=== PATIENT | female | born 1965 | race Caucasian/White ===

== ENCOUNTER → 2018-01-16 | Outpatient (REF) | payer OTHER ==
[2018-01-16 16:50] LABS: BASO # 0.1 10^3/uL (0.0-0.2); BASO % 1.1 % (0.0-1.0); EOS # 0.6 10^3/uL (0.0-0.50); EOS % 6.3 % (0.0-3.0); HEMATOCRIT 38.9 % (36.0-47.0); HEMOGLOBIN 13.1 g/dl (12.0-15.5); IMMATURE GRANULOCYTE % 0.2 % (0-3.0); LYMPH # 3.2 10^3/uL (1.5-4.5); LYMPH % 32.2 % (24.0-44.0); MEAN CORPUSCULAR HEMOGLOBIN 30.4 pg (27.0-33.0); MEAN CORPUSCULAR HGB CONC 33.7 g/dl (32.0-36.5); MEAN CORPUSCULAR VOLUME 90.3 fl (80.0-96.0); MONO # 0.6 10^3/uL (0.0-0.8); MONO % 6.1 % (0.0-5.0); NEUTROPHILS # 5.5 10^3/uL (1.8-7.7); NEUTROPHILS % 54.1 % (36.0-66.0); PLATELET COUNT, AUTOMATED 335 10^3/uL (150-450); RED BLOOD COUNT 4.31 10^6/uL (4.00-5.40); RED CELL DISTRIBUTION WIDTH 12.7 % (11.5-14.5); WHITE BLOOD COUNT 10.1 10^3/uL (4.0-10.0)
[2018-01-16 17:09] LABS: ALBUMIN 3.6 GM/DL (3.2-5.2); ALBUMIN/GLOBULIN RATIO 0.97 (1.00-1.93); ALKALINE PHOSPHATASE 102 U/L (45-117); ALT/SGPT 21 U/L (12-78); ANION GAP 7 MEQ/L (8-16); AST/SGOT 10 U/L (7-37); BILIRUBIN,TOTAL 0.3 MG/DL (0.2-1.0); BLOOD UREA NITROGEN 14 MG/DL (7-18); C REACTIVE PROTEIN QUANTITATIV 0.75 MG/DL (0.00-0.30); CALCIUM LEVEL 8.9 MG/DL (8.5-10.1); CARBON DIOXIDE LEVEL 27 MEQ/L (21-32); CHLORIDE LEVEL 106 MEQ/L (98-107); CHOLESTEROL LEVEL 204 MG/DL (<200); CHOLESTEROL RISK RATIO 5.513 (<5); GLOMERULAR FILTRATION RATE > 60.0 (>51); GLUCOSE, FASTING 92 MG/DL (70-100); HDL CHOLESTEROL 37 MG/DL (>40); LDL CHOLESTEROL 133.2 MG/DL (<100); NON-HDL-C 167 MG/DL; POTASSIUM SERUM 4.9 MEQ/L (3.5-5.1); SODIUM LEVEL 140 MEQ/L (136-145); TOTAL PROTEIN 7.3 GM/DL (6.4-8.2); TRIGLYCERIDES LEVEL 169 MG/DL (<150)
[2018-01-16 17:11] LABS: ERYTHROCYTE SEDIMENTATION RATE 26 mm/hr (0-30)
[2018-01-19 00:37] LABS: ANTINUCLEAR ANTIBODIES DIRECT Negative (Negative); Lyme Disease IgG/IgM Antibodie <0.91 ISR (0.00-0.90); Lyme Disease IgM Ab Quantitati <0.80 index (0.00-0.79)
[2018-01-19 00:37] LABS: CYCLIC CITRULLINATED PEPTIDE > 250 units (0-19)
== END ==
LOC: M SFHCCAPE 07:15
DX: M05.79 Rheumatoid arthritis with rheumatoid factor of multiple sites without organ or systems involvement (principal); I10 Essential (primary) hypertension
CPT/HCPCS: 84443

== ENCOUNTER → 2018-01-30 | Outpatient (REF) | payer OTHER ==
[2018-02-01 14:14] LABS: HPV HYBRID CAPTURE II Negative (Negative)
== END ==
LOC: M SFHCCAPE 08:16
DX: Z12.4 Encounter for screening for malignant neoplasm of cervix (principal)
CPT/HCPCS: 88142

== ENCOUNTER → 2018-04-30 | Outpatient (REF) | payer OTHER | LOC: M SFHCCAPE 08:33 | DX: E78.2 Mixed hyperlipidemia (principal) ==

== ENCOUNTER → 2018-05-21 | Outpatient (REF) | payer OTHER ==
[2018-05-21 17:08] LABS: APPEARANCE, URINE CLEAR (CLEAR); BACTERIA, URINE AUTO NEGATIVE (NEGATIVE); BILIRUBIN, URINE AUTO NEGATIVE (NEGATIVE); BLOOD, URINE BLOOD NEGATIVE (NEGATIVE); COLOR, URINE YELLOW (YELLOW); GLUCOSE, URINE (UA) AUTO NEGATIVE (NEGATIVE); KETONE, URINE AUTO NEGATIVE (NEGATIVE); LEUKOCYTE ESTERASE, URINE AUTO NEGATIVE (NEGATIVE); NITRITE, URINE AUTO NEGATIVE (NEGATIVE); PROTEIN, URINE AUTO NEGATIVE (NEGATIVE); RBC, URINE AUTO 4 /HPF (0-3); SPECIFIC GRAVITY URINE AUTO 1.014 (1.002-1.035); SQUAMOUS EPITHELIAL CELL UR AU 1 /HPF (0-6); WBC, URINE AUTO 0 /HPF (0-3)
[2018-05-21 17:17] LABS: ALBUMIN 3.3 GM/DL (3.2-5.2); ALBUMIN/GLOBULIN RATIO 1.06 (1.00-1.93); ALKALINE PHOSPHATASE 89 U/L (45-117); ALT/SGPT 30 U/L (12-78); ANION GAP 6 MEQ/L (8-16); AST/SGOT 14 U/L (7-37); BILIRUBIN,TOTAL 0.4 MG/DL (0.2-1.0); BLOOD UREA NITROGEN 14 MG/DL (7-18); CALCIUM LEVEL 8.5 MG/DL (8.5-10.1); CARBON DIOXIDE LEVEL 28 MEQ/L (21-32); CHLORIDE LEVEL 106 MEQ/L (98-107); CHOLESTEROL LEVEL 152 MG/DL (<200); CHOLESTEROL RISK RATIO 3.707 (<5); CREATININE FOR GFR 0.94 MG/DL (0.55-1.30); GLOMERULAR FILTRATION RATE > 60.0 (>51); GLUCOSE, FASTING 82 MG/DL (70-100); HDL CHOLESTEROL 41 MG/DL (>40); LDL CHOLESTEROL 89 MG/DL (<100); NON-HDL-C 111 MG/DL; POTASSIUM SERUM 4.7 MEQ/L (3.5-5.1); SODIUM LEVEL 140 MEQ/L (136-145); TOTAL PROTEIN 6.4 GM/DL (6.4-8.2); TRIGLYCERIDES LEVEL 110 MG/DL (<150)
== END ==
LOC: M SFHCCAPE 07:47
DX: E78.2 Mixed hyperlipidemia (principal); R35.0 Frequency of micturition
CPT/HCPCS: 80053

== ENCOUNTER → 2018-08-16 | Outpatient (REF) | payer OTHER ==
[2018-08-16 17:08] LABS: APPEARANCE, URINE CLEAR (CLEAR); BACTERIA, URINE AUTO 1+ (NEGATIVE); BILIRUBIN, URINE AUTO NEGATIVE (NEGATIVE); BLOOD, URINE BLOOD NEGATIVE (NEGATIVE); COLOR, URINE YELLOW (YELLOW); GLUCOSE, URINE (UA) AUTO NEGATIVE (NEGATIVE); KETONE, URINE AUTO NEGATIVE (NEGATIVE); LEUKOCYTE ESTERASE, URINE AUTO NEGATIVE (NEGATIVE); MUCUS, URINE SMALL (NEGATIVE); NITRITE, URINE AUTO NEGATIVE (NEGATIVE); PROTEIN, URINE AUTO NEGATIVE (NEGATIVE); RBC, URINE AUTO 1 /HPF (0-3); SPECIFIC GRAVITY URINE AUTO 1.006 (1.002-1.035); SQUAMOUS EPITHELIAL CELL UR AU 0 /HPF (0-6); UROBILINOGEN, URINE AUTO 0.2 mg/dL (0.0-2.0); WBC, URINE AUTO 1 /HPF (0-3)
== END ==
LOC: M SFHCCAPE 07:51
PROVIDERS: ATTEND Physician Assistant
DX: R31.29 Other microscopic hematuria (principal)

== ENCOUNTER → 2018-10-23 | Outpatient (REF) | payer OTHER ==
[2018-10-23 17:46] LABS: ALT/SGPT 20 U/L (12-78); BILIRUBIN,TOTAL 0.4 MG/DL (0.2-1.0); BLOOD UREA NITROGEN 12 MG/DL (7-18); C REACTIVE PROTEIN QUANTITATIV 2.96 MG/DL (0.00-0.30); CARBON DIOXIDE LEVEL 27 MEQ/L (21-32); CHLORIDE LEVEL 107 MEQ/L (98-107); CREATININE FOR GFR 0.82 MG/DL (0.55-1.30); GLOMERULAR FILTRATION RATE > 60.0 (>51); GLUCOSE, FASTING 93 MG/DL (70-100); POTASSIUM SERUM 4.6 MEQ/L (3.5-5.1); SODIUM LEVEL 139 MEQ/L (136-145); TOTAL PROTEIN 6.9 GM/DL (6.4-8.2)
[2018-10-23 17:52] LABS: BASO # 0.1 10^3/uL (0.0-0.2); BASO % 0.7 % (0.0-1.0); EOS # 0.7 10^3/uL (0.0-0.50); EOS % 5.3 % (0.0-3.0); HEMATOCRIT 39.4 % (36.0-47.0); HEMOGLOBIN 13.1 g/dl (12.0-15.5); LYMPH # 3.7 10^3/uL (1.5-4.5); LYMPH % 29.5 % (24.0-44.0); MEAN CORPUSCULAR HGB CONC 33.2 g/dl (32.0-36.5); MEAN CORPUSCULAR VOLUME 93.4 fl (80.0-96.0); MONO # 0.6 10^3/uL (0.0-0.8); MONO % 4.8 % (0.0-5.0); NEUTROPHILS # 7.5 10^3/uL (1.8-7.7); NEUTROPHILS % 59.4 % (36.0-66.0); PLATELET COUNT, AUTOMATED 310 10^3/uL (150-450); RED BLOOD COUNT 4.22 10^6/uL (4.00-5.40); WHITE BLOOD COUNT 12.6 10^3/uL (4.0-10.0)
[2018-10-23 22:03] LABS: ERYTHROCYTE SEDIMENTATION RATE 27 mm/hr (0-30)
[2018-10-24 09:50] LABS: HEPATITIS B SURFACE ANTIBODY NEGATIVE (POSITIVE)
[2018-10-24 10:00] LABS: HEPATITIS B SURFACE ANTIGEN NEGATIVE (NEGATIVE)
[2018-10-25 09:49] LABS: HEPATITIS B CORE ANTIBODY IGG Negative (Negative)
== END ==
LOC: M SFHCPLAZ 09:16
PROVIDERS: ATTEND Internal Medicine Rheumatology
DX: Z79.899 Other long term (current) drug therapy (principal); M05.79 Rheumatoid arthritis with rheumatoid factor of multiple sites without organ or systems involvement

== ENCOUNTER → 2018-10-31 | Outpatient (CLI) | payer OTHER ==
--- NOTE | 2018-11-01 01:40 | REP ---
Clinical: Positive rheumatoid factor. Technique: AP, lateral, bilateral oblique views of the right and left hand. Findings: Left hand demonstrates mild periarticular sclerosis and very minimal joint space narrowing involving the third through fifth proximal interphalangeal joints. The first digit demonstrates periarticular sclerosis, osteophyte formation and mild joint space narrowing involving the metacarpophalangeal (MCP) joint and interphalangeal joint along with subtle chronic subluxation at the MCP joint. Right hand demonstrates suspected post traumatic changes involving the second metacarpophalangeal joint including cortical irregularities, chronic subluxation, periarticular heterogeneity with joint space narrowing and overlying swelling. Periarticular sclerosis and mild joint space narrowing involves the first MCP joint and interphalangeal joints. Impression: 1. 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 2. Mild/moderate to early osteoarthritic changes suggested as described above (left greater than right). Electronically Signed by Akash Ceballos MD 11/01/2018 01:31 A
--- NOTE | 2018-11-01 01:49 | REP ---
Clinical: Positive rheumatoid factor. Technique: AP, lateral, bilateral oblique views of the right and left wrist. Findings: Right wrist demonstrates subchondral sclerosis to the radial surface along with moderate radiocarpal joint space narrowing. The carpal bones demonstrate mild cortical irregularity and generalized age-related changes. No significant osteophytosis, erosive changes or calcified loose bodies are identified. Marked soft tissue swelling along the posterior and radial aspects of the wrist appreciated and may reflect underlying bursitis or hematoma and requires correlation with possible history of trauma. Left wrist demonstrates minimal subchondral sclerosis to the radial surface along with minimal radiocarpal joint space narrowing. The carpal bones demonstrate mild age-related generalized changes without cortical irregularity, osteophytosis, erosive changes. No calcified loose bodies are identified. No significant swelling. Impression: 1. Moderate nonspecific arthritic changes involving the right wrist along with significant posterior and lateral soft tissue swelling. Correlation is recommended and differential diagnosis includes but is not limited to bursitis as well as hematoma related to trauma. No obvious acute fracture identified. 2. Mild age-related generalized arthritic changes to the left wrist. Electronically Signed by Akash Ceballos MD 11/01/2018 01:40 A
--- NOTE | 2018-11-01 01:56 | REP ---
Clinical: Positive rheumatoid factor. Technique: AP, lateral, bilateral oblique views of the right and left foot. Findings: Left foot demonstrates mild osteopenia as well as advanced arthritic changes primarily involving the metatarsophalangeal joints as well as the interphalangeal joints. Cortical irregularity with contour deformities and subchondral heterogeneity as well as cystic changes significantly involved the fifth metatarsal head and to a somewhat lesser extent the third, second, and first metatarsal heads along with periarticular sclerosis and joint space narrowing at the first and fifth MTP joints. There is evidence for advanced hallux valgus deformity as well as chronic dislocation at the second and third MTP joints. Overlying swelling noted. Right foot demonstrates osteopenia as well as advanced arthritic changes involving the metatarsophalangeal and interphalangeal joints. Cortical irregularity with contour deformities and subchondral heterogeneity as well as cystic changes significantly involved the first, fifth and second metatarsal heads and to a somewhat lesser extent the head of the first proximal phalanx. Further changes include generalized periarticular sclerosis and joint space narrowing. There is evidence for advanced hallux valgus deformity as well as chronic subluxation at the first, second and fifth MTP joints. Overlying swelling noted. Impression: Advanced bilateral arthritic changes. Electronically Signed by Akash Ceballos MD 11/01/2018 01:48 A
--- NOTE | 2018-11-01 01:59 | REP ---
Clinical: Positive rheumatoid factor and bilateral knee pain. Technique: Single AP upright/weightbearing view of the bilateral knees. Findings: Early advanced bilateral arthritic changes include osteophytosis, subchondral sclerosis along the tibial plateaus, spurring to the tibial spines, chondrocalcinosis, and mild medial joint space narrowing (left greater than right). Impression: Early advanced arthritic changes. Electronically Signed by Akash Ceballos MD 11/01/2018 01:50 A
== END ==
LOC: M WUC 08:40
PROVIDERS: ATTEND Internal Medicine Rheumatology
DX: M85.89 Other specified disorders of bone density and structure, multiple sites (principal); M19.072 Primary osteoarthritis, left ankle and foot; M19.071 Primary osteoarthritis, right ankle and foot; M25.742 Osteophyte, left hand; M19.041 Primary osteoarthritis, right hand; M19.042 Primary osteoarthritis, left hand; M18.2 Bilateral post-traumatic osteoarthritis of first carpometacarpal joints; M25.761 Osteophyte, right knee; M25.762 Osteophyte, left knee; M17.0 Bilateral primary osteoarthritis of knee; M19.031 Primary osteoarthritis, right wrist; M19.032 Primary osteoarthritis, left wrist

== ENCOUNTER → 2018-12-26 | Outpatient (REF) | payer OTHER ==
[2018-12-26 17:19] LABS: BASO # 0.1 10^3/uL (0.0-0.2); BASO % 0.8 % (0.0-1.0); EOS # 0.4 10^3/uL (0.0-0.50); EOS % 3.8 % (0.0-3.0); HEMATOCRIT 37.9 % (36.0-47.0); HEMOGLOBIN 12.5 g/dl (12.0-15.5); LYMPH # 3.9 10^3/uL (1.5-4.5); LYMPH % 36.6 % (24.0-44.0); MEAN CORPUSCULAR HEMOGLOBIN 30.7 pg (27.0-33.0); MEAN CORPUSCULAR VOLUME 93.1 fl (80.0-96.0); MONO # 0.6 10^3/uL (0.0-0.8); MONO % 5.4 % (0.0-5.0); NEUTROPHILS # 5.7 10^3/uL (1.8-7.7); NEUTROPHILS % 53.2 % (36.0-66.0); PLATELET COUNT, AUTOMATED 314 10^3/uL (150-450); RED BLOOD COUNT 4.07 10^6/uL (4.00-5.40); WHITE BLOOD COUNT 10.7 10^3/uL (4.0-10.0)
[2018-12-26 17:38] LABS: ALBUMIN 3.7 GM/DL (3.2-5.2); BILIRUBIN,TOTAL 0.2 MG/DL (0.2-1.0); C REACTIVE PROTEIN QUANTITATIV 0.41 MG/DL (0.00-0.30); CREATININE FOR GFR 1.07 MG/DL (0.55-1.30); GLOMERULAR FILTRATION RATE 56.9 (>51); POTASSIUM SERUM 4.3 MEQ/L (3.5-5.1); TOTAL PROTEIN 7.1 GM/DL (6.4-8.2)
== END ==
LOC: M SFHCPLAZ 15:46
PROVIDERS: ATTEND Internal Medicine Rheumatology
DX: M05.79 Rheumatoid arthritis with rheumatoid factor of multiple sites without organ or systems involvement (principal)

== ENCOUNTER → 2019-02-21 | Outpatient (REF) | payer OTHER | LOC: M SFHCCAPE 10:33 | PROVIDERS: ATTEND Physician Assistant | DX: R19.7 Diarrhea, unspecified (principal) ==

== ENCOUNTER → 2019-04-08 | Outpatient (REF) | payer OTHER ==
[2019-04-08 18:33] LABS: ALBUMIN 3.6 GM/DL (3.2-5.2); ALT/SGPT 23 U/L (12-78); BILIRUBIN,TOTAL 0.3 MG/DL (0.2-1.0); BLOOD UREA NITROGEN 13 MG/DL (7-18); C REACTIVE PROTEIN QUANTITATIV 0.75 MG/DL (0.00-0.30); CALCIUM LEVEL 9.1 MG/DL (8.5-10.1); CARBON DIOXIDE LEVEL 27 MEQ/L (21-32); CHLORIDE LEVEL 107 MEQ/L (98-107); CREATININE FOR GFR 0.77 MG/DL (0.55-1.30); GLOMERULAR FILTRATION RATE > 60.0 (>51); GLUCOSE, FASTING 98 MG/DL (70-100); POTASSIUM SERUM 4.5 MEQ/L (3.5-5.1); SODIUM LEVEL 141 MEQ/L (136-145); TOTAL PROTEIN 6.5 GM/DL (6.4-8.2)
[2019-04-08 18:34] LABS: BASO # 0.1 10^3/uL (0.0-0.2); EOS # 0.3 10^3/uL (0.0-0.5); EOS % 3.6 % (0.0-3.0); HEMATOCRIT 37.9 % (36.0-47.0); HEMOGLOBIN 12.3 g/dl (12.0-15.5); LYMPH # 3.1 10^3/uL (1.5-5.0); LYMPH % 39.6 % (24.0-44.0); MEAN CORPUSCULAR HEMOGLOBIN 31.6 pg (27.0-33.0); MEAN CORPUSCULAR HGB CONC 32.5 g/dl (32.0-36.5); MEAN CORPUSCULAR VOLUME 97.4 fl (80.0-96.0); MONO # 0.5 10^3/uL (0.0-0.8); MONO % 6.2 % (0.0-5.0); NEUTROPHILS # 3.9 10^3/uL (1.5-8.5); NEUTROPHILS % 49.3 % (36.0-66.0); PLATELET COUNT, AUTOMATED 265 10^3/uL (150-450); RED BLOOD COUNT 3.89 10^6/uL (4.00-5.40); WHITE BLOOD COUNT 7.9 10^3/uL (4.0-10.0)
== END ==
LOC: M SFHCCAPE 07:38
PROVIDERS: ATTEND Internal Medicine Rheumatology
DX: M05.79 Rheumatoid arthritis with rheumatoid factor of multiple sites without organ or systems involvement (principal)

== ENCOUNTER → 2019-08-01 | Outpatient (REF) | payer OTHER ==
[2019-08-01 16:55] LABS: BASO # 0.1 10^3/uL (0.0-0.2); BASO % 1.3 % (0.0-1.0); EOS # 0.3 10^3/uL (0.0-0.5); EOS % 3.7 % (0.0-3.0); HEMATOCRIT 38.9 % (36.0-47.0); HEMOGLOBIN 12.8 g/dl (12.0-15.5); LYMPH # 2.7 10^3/uL (1.5-5.0); LYMPH % 32.1 % (24.0-44.0); MEAN CORPUSCULAR HEMOGLOBIN 32.4 pg (27.0-33.0); MEAN CORPUSCULAR HGB CONC 32.9 g/dl (32.0-36.5); MEAN CORPUSCULAR VOLUME 98.5 fl (80.0-96.0); MONO # 0.6 10^3/uL (0.0-0.8); MONO % 6.8 % (0.0-5.0); NEUTROPHILS # 4.7 10^3/uL (1.5-8.5); NEUTROPHILS % 55.6 % (36.0-66.0); PLATELET COUNT, AUTOMATED 288 10^3/uL (150-450); RED BLOOD COUNT 3.95 10^6/uL (4.00-5.40); WHITE BLOOD COUNT 8.5 10^3/uL (4.0-10.0)
[2019-08-01 17:05] LABS: ALBUMIN 3.6 GM/DL (3.2-5.2); ALT/SGPT 25 U/L (12-78); BILIRUBIN,TOTAL 0.4 MG/DL (0.2-1.0); BLOOD UREA NITROGEN 13 MG/DL (7-18); CALCIUM LEVEL 8.7 MG/DL (8.5-10.1); CARBON DIOXIDE LEVEL 26 MEQ/L (21-32); CHLORIDE LEVEL 108 MEQ/L (98-107); CHOLESTEROL LEVEL 147 MG/DL (<200); CHOLESTEROL RISK RATIO 3.585 (<5); CREATININE FOR GFR 0.87 MG/DL (0.55-1.30); GLOMERULAR FILTRATION RATE > 60.0 (>51); GLUCOSE, FASTING 96 MG/DL (70-100); HDL CHOLESTEROL 41 MG/DL (>40); LDL CHOLESTEROL 80 MG/DL (<100); NON-HDL-C 106 MG/DL; POTASSIUM SERUM 4.9 MEQ/L (3.5-5.1); SODIUM LEVEL 139 MEQ/L (136-145); TOTAL 25(OH) VITAMIN D 10.1 NG/ML (30.0-100.0); TOTAL PROTEIN 6.9 GM/DL (6.4-8.2); TRIGLYCERIDES LEVEL 130 MG/DL (<150)
== END ==
LOC: M SFHCCAPE 06:57
PROVIDERS: ATTEND Physician Assistant
DX: E78.2 Mixed hyperlipidemia (principal); I10 Essential (primary) hypertension; F32.0 Major depressive disorder, single episode, mild

== ENCOUNTER → 2019-09-05 | Outpatient (CLI) | payer OTHER ==
[~2019-09-05] MED LIST: ASPI81TA85 PO; ATOR1TAB19 PO; COMBAER6 INH; DIAZ5TAB PO; ENDO5TAB PO; FLUT15.820 NARES; FOLI1TAB11 PO; LISI-542 PO; MACR100C43 PO; METH2.5T48 PO; NEUR300C PO; OXYC10TA3 PO; PHEN-501 PO; PRED10PA2 PO; TIZA2CAP PO; TRAM50TA2 PO; TRAZ-189 PO; VITA200028 PO; ZOLO100T PO
--- NOTE | 2019-09-05 11:43 | REP ---
RIGHT HIP, TWO VIEWS: Two views of the right hip are performed. There is no fracture or dislocation. There is moderately severe superior hip joint space narrowing. There is moderate subchondral sclerosis and cystic change. There is mild to moderate acetabular spurring. IMPRESSION: Moderately severe osteoarthritic changes right hip joint. Electronically Signed by Nguyễn Graff MD 09/05/2019 08:05 P
[2019-09-05 13:14] LABS: BASO # 0.1 10^3/uL (0.0-0.2); BASO % 0.4 % (0.0-1.0); EOS # 0.1 10^3/uL (0.0-0.5); EOS % 0.5 % (0.0-3.0); HEMATOCRIT 38.2 % (36.0-47.0); HEMOGLOBIN 12.3 g/dl (12.0-15.5); LYMPH # 3.8 10^3/uL (1.5-5.0); LYMPH % 26.4 % (24.0-44.0); MEAN CORPUSCULAR HEMOGLOBIN 32.2 pg (27.0-33.0); MEAN CORPUSCULAR HGB CONC 32.2 g/dl (32.0-36.5); MONO # 1.2 10^3/uL (0.0-0.8); MONO % 8.2 % (0.0-5.0); NEUTROPHILS # 9.1 10^3/uL (1.5-8.5); NEUTROPHILS % 64.1 % (36.0-66.0); PLATELET COUNT, AUTOMATED 377 10^3/uL (150-450); RED BLOOD COUNT 3.82 10^6/uL (4.00-5.40); WHITE BLOOD COUNT 14.2 10^3/uL (4.0-10.0)
[2019-09-05 13:52] LABS: ALBUMIN 3.5 GM/DL (3.2-5.2); ALT/SGPT 19 U/L (12-78); BILIRUBIN,TOTAL 0.2 MG/DL (0.2-1.0); BLOOD UREA NITROGEN 11 MG/DL (7-18); C REACTIVE PROTEIN QUANTITATIV 3.51 MG/DL (0.00-0.30); CALCIUM LEVEL 8.9 MG/DL (8.5-10.1); CARBON DIOXIDE LEVEL 29 MEQ/L (21-32); CHLORIDE LEVEL 107 MEQ/L (98-107); CREATININE FOR GFR 0.77 MG/DL (0.55-1.30); GLOMERULAR FILTRATION RATE > 60.0 (>51); GLUCOSE, FASTING 81 MG/DL (70-100); POTASSIUM SERUM 3.7 MEQ/L (3.5-5.1); SODIUM LEVEL 140 MEQ/L (136-145); TOTAL PROTEIN 6.7 GM/DL (6.4-8.2)
[2019-09-05 14:43] LABS: ERYTHROCYTE SEDIMENTATION RATE 56 mm/hr (0-30)
== END ==
LOC: M WUC 09:50
PROVIDERS: ATTEND Internal Medicine
DX: M16.11 Unilateral primary osteoarthritis, right hip (principal); M05.79 Rheumatoid arthritis with rheumatoid factor of multiple sites without organ or systems involvement

== ENCOUNTER → 2019-09-05 | Outpatient (CLI) | payer OTHER ==
--- NOTE | 2019-09-05 11:41 | REP ---
LUMBOSACRAL SPINE: Five views lumbosacral spine are performed. There is no compression fracture. There are only four lumbar-type vertebral bodies indicating a transitional lumbar vertebral body. For the purposes of this report, I will describe these levels as L1 through L4. There is mild anterior listhesis of L3 on L4 due to posterior facet arthropathy. There is moderate narrowing with subchondral sclerosis and vacuum at L2-3. There is mild narrowing with subchondral sclerosis and vacuum at L3-4 and L4-S1. There is sclerosis and spurring at the posterior facets at L3-4 and L4-S1. Posterior elements are intact with mild curvature toward the left. Metallic clips are seen in the right upper quadrant. IMPRESSION: Transitional lumbar vertebral body. Only four lumbar-type vertebral bodies present. There are moderate degenerative changes, as above. Electronically Signed by Nguyễn Graff MD 09/05/2019 08:05 P
== END ==
LOC: M WUC 09:56
PROVIDERS: ATTEND Physician Assistant
DX: M51.36 Other intervertebral disc degeneration, lumbar region (principal); M54.41 Lumbago with sciatica, right side

== ENCOUNTER 2019-09-10 13:46 | Emergency (ER) | payer OTHER ==
[~2019-09-10] VITALS: Ht 160 cm; Wt 80.3 kg
[2019-09-10] MEDS ORDERED: TIZA2CAP PO (14:43)
[2019-09-10] MEDS ORDERED: PRED10PA2 PO (14:43)
[2019-09-10] MEDS ORDERED: FLUT15.820 NARES (14:43)
[2019-09-10] MEDS ORDERED: OXYC10TA3 PO (14:43)
[2019-09-10] MEDS ORDERED: VITA200028 PO (14:43)
[2019-09-10] MEDS ORDERED: LISI-542 PO (14:43)
[2019-09-10] MEDS ORDERED: ATOR1TAB19 PO (14:43)
[2019-09-10] MEDS ORDERED: NEUR300C PO (14:43)
[2019-09-10] MEDS ORDERED: ZOLO100T PO (14:43)
[2019-09-10] MEDS ORDERED: ASPI81TA85 PO (14:43)
[2019-09-10] MEDS ORDERED: FOLI1TAB11 PO (14:43)
[2019-09-10] MEDS ORDERED: TRAZ-189 PO (14:43)
[2019-09-10] MEDS ORDERED: TRAM50TA2 PO (14:43)
[2019-09-10] MEDS ORDERED: DIAZ5TAB PO ×2 (14:43→17:25)
[2019-09-10] MEDS ORDERED: METH2.5T48 PO (14:43)
[2019-09-10] MEDS ORDERED: COMBAER6 INH (14:43)
[2019-09-10] MEDS ORDERED: LIDOCAINE 5% (LIDODERM) PATCH TD ONE (15:30)
[2019-09-10 16:10] LABS: BASO % 0.4 % (0.0-1.0); EOS % 0.4 % (0.0-3.0); HEMATOCRIT 34.8 % (36.0-47.0); HEMOGLOBIN 11.7 g/dl (12.0-15.5); LYMPH # 1.7 10^3/uL (1.5-5.0); LYMPH % 20.2 % (24.0-44.0); MEAN CORPUSCULAR HEMOGLOBIN 32.3 pg (27.0-33.0); MEAN CORPUSCULAR HGB CONC 33.6 g/dl (32.0-36.5); MEAN CORPUSCULAR VOLUME 96.1 fl (80.0-96.0); MONO # 0.6 10^3/uL (0.0-0.8); MONO % 7.3 % (0.0-5.0); NEUTROPHILS % 71.3 % (36.0-66.0); PLATELET COUNT, AUTOMATED 213 10^3/uL (150-450); RED BLOOD COUNT 3.62 10^6/uL (4.00-5.40); WHITE BLOOD COUNT 8.4 10^3/uL (4.0-10.0)
[2019-09-10] MEDS ORDERED: MORPHINE 4 MG/ML 1ML VIAL/SYRINGE (J2270) IM ONE (16:15)
[2019-09-10 16:29] LABS: ERYTHROCYTE SEDIMENTATION RATE 79 mm/hr (0-30)
[2019-09-10 16:34] LABS: MONO REFLEX EBV COMP NEGATIVE (NEGATIVE)
[2019-09-10 16:38] LABS: INFLUENZA A AMPLIFICATION NEGATIVE (NEGATIVE); INFLUENZA B AMPLIFICATION NEGATIVE (NEGATIVE)
[2019-09-10 16:50] LABS: BLOOD UREA NITROGEN 14 MG/DL (7-18); CALCIUM LEVEL 8.8 MG/DL (8.5-10.1); CARBON DIOXIDE LEVEL 27 MEQ/L (21-32); CHLORIDE LEVEL 102 MEQ/L (98-107); CREATININE FOR GFR 0.79 MG/DL (0.55-1.30); GLOMERULAR FILTRATION RATE > 60.0 (>51); GLUCOSE, FASTING 97 MG/DL (70-100); POTASSIUM SERUM 3.7 MEQ/L (3.5-5.1); SODIUM LEVEL 137 MEQ/L (136-145)
[2019-09-10] MEDS ORDERED: NITROFURANTOIN (MACROBID) 100 MG CAP PO ONE (17:15)
[2019-09-10] MEDS ORDERED: PHENAZOPYRIDINE 100 MG TAB PO ONE (17:15)
[2019-09-10] MEDS ORDERED: MACR100C43 PO (17:25)
[2019-09-10] MEDS ORDERED: PHEN-501 PO (17:25)
[2019-09-10] MEDS ORDERED: ENDO5TAB PO (17:25)
[2019-09-10 17:35] VITALS: BP 142/67
[2019-09-10] MEDS ORDERED: **NOTE PATIENT COMMENT** MISC XX SCH (21:00)
[2019-09-12 14:07] LABS: EBV AB TO NUCLEAR ANTIGEN 46.9 U/mL (0.0-17.9); EBV VIRAL CAPSID AG IgG 29.7 U/mL (0.0-17.9); EBV VIRAL CAPSID AG IgM <36.0 U/mL (0.0-35.9)
== END 2019-09-10 17:35 | disposition home or self-care (01) ==
LOC: M ED 13:46
DX: N30.00 Acute cystitis without hematuria (principal); G89.29 Other chronic pain; M54.31 Sciatica, right side; F17.200 Nicotine dependence, unspecified, uncomplicated; Z79.52 Long term (current) use of systemic steroids; Z79.82 Long term (current) use of aspirin; Z79.891 Long term (current) use of opiate analgesic; Z79.899 Other long term (current) drug therapy; Z88.0 Allergy status to penicillin
CPT/HCPCS: 80048; 81001; 85025; 85652; 86140; 86308; 86664; 86665; 87502; 96372; 99283; J2270

== ENCOUNTER → 2019-10-02 | Outpatient (CLI) | payer OTHER ==
--- NOTE | 2019-10-02 10:00 | REP ---
MRI RIGHT HIP: Limited MRI right hip performed. Only coronal T1 and STIR images are obtained. The patient could not tolerate further imaging. Severe arthritic changes are noted at the right hip joint with severe diffuse chondromalacia of the femoral head and acetabulum. There severe marrow edema involving the right femoral head and neck and also throughout the acetabulum. There are also multiple subcentimeter subchondral cysts in the femoral head and acetabulum. There is a moderate joint effusion. There is surrounding soft tissue edema. There appears to be diffuse fraying of the superior labrum. There are several lymph nodes along the right external iliac artery and femoral artery, largest is 11 mm in short axis. IMPRESSION: Severe arthritic changes right hip joint as discussed in detail above. Moderate joint effusion. Severe diffuse marrow edema on both sides of the joint. Superior labrum is diffusely frayed. Electronically Signed by Nguyễn Graff MD 10/02/2019 10:32 A
== END ==
LOC: M RAD 07:35
PROVIDERS: ATTEND Physician Assistant
DX: M16.11 Unilateral primary osteoarthritis, right hip (principal); M25.451 Effusion, right hip; M54.41 Lumbago with sciatica, right side

== ENCOUNTER → 2020-02-27 | Outpatient (REF) | payer OTHER ==
[~2020-02-27] MED LIST changes: -ASPI81TA85 PO; +ASPI81TA86 PO
[2020-02-27 15:22] LABS: HEMATOCRIT 39.2 % (36.0-47.0); HEMOGLOBIN 12.3 g/dl (12.0-15.5); MEAN CORPUSCULAR HEMOGLOBIN 31.5 pg (27.0-33.0); MEAN CORPUSCULAR HGB CONC 31.4 g/dl (32.0-36.5); MEAN CORPUSCULAR VOLUME 100.5 fl (80.0-96.0); PLATELET COUNT, AUTOMATED 413 10^3/uL (150-450); WHITE BLOOD COUNT 17.8 10^3/uL (4.0-10.0)
[2020-02-27 15:33] LABS: HEMOGLOBIN A1c 5.4 %
[2020-02-27 15:45] LABS: ALBUMIN 3.8 GM/DL (3.2-5.2); ALT/SGPT 16 U/L (12-78); BILIRUBIN,TOTAL 0.2 MG/DL (0.2-1.0); BLOOD UREA NITROGEN 18 MG/DL (7-18); C REACTIVE PROTEIN QUANTITATIV 2.31 MG/DL (0.00-0.30); CALCIUM LEVEL 9.2 MG/DL (8.5-10.1); CARBON DIOXIDE LEVEL 28 MEQ/L (21-32); CHLORIDE LEVEL 107 MEQ/L (98-107); CHOLESTEROL LEVEL 137 MG/DL (<200); CHOLESTEROL RISK RATIO 3.261 (<5); FOLATE 4.4 NG/ML (>5.4); FREE T4 0.97 NG/DL (0.76-1.46); GLOMERULAR FILTRATION RATE > 60.0 (>51); GLUCOSE, FASTING 72 MG/DL (70-100); HDL CHOLESTEROL 42 MG/DL (>40); LDL CHOLESTEROL 77 MG/DL (<100); NON-HDL-C 95 MG/DL; POTASSIUM SERUM 4.5 MEQ/L (3.5-5.1); SODIUM LEVEL 140 MEQ/L (136-145); TOTAL 25(OH) VITAMIN D 22.2 NG/ML (30.0-100.0); TOTAL PROTEIN 7.3 GM/DL (6.4-8.2); TRIGLYCERIDES LEVEL 92 MG/DL (<150); VITAMIN B12 LEVEL 243 PG/ML (247-911)
[2020-02-27 16:04] LABS: ERYTHROCYTE SEDIMENTATION RATE 54 mm/hr (0-30)
[2020-02-27 16:22] LABS: APPEARANCE, URINE CLEAR (CLEAR); BACTERIA, URINE AUTO 1+ (NEGATIVE); BILIRUBIN, URINE AUTO NEGATIVE (NEGATIVE); BLOOD, URINE BLOOD 1+ (NEGATIVE); COLOR, URINE YELLOW (YELLOW); GLUCOSE, URINE (UA) AUTO NEGATIVE (NEGATIVE); KETONE, URINE AUTO NEGATIVE (NEGATIVE); LEUKOCYTE ESTERASE, URINE AUTO TRACE (NEGATIVE); MUCUS, URINE SMALL (NEGATIVE); NITRITE, URINE AUTO NEGATIVE (NEGATIVE); PROTEIN, URINE AUTO NEGATIVE (NEGATIVE); RBC, URINE AUTO 0 /HPF (0-3); SPECIFIC GRAVITY URINE AUTO 1.006 (1.002-1.035); SQUAMOUS EPITHELIAL CELL UR AU 0 /HPF (0-6); UROBILINOGEN, URINE AUTO 0.2 mg/dL (0.0-2.0); WBC, URINE AUTO 13 /HPF (0-3)
[2020-02-27 20:10] LABS: BASOPHILS 1 % (0-1); EOSINOPHILS 2 % (0-3); LYMPHOCYTES 25 % (16-44); MONOCYTES 2 % (0-5); NEUTROPHILS 70 % (28-66); PLATELET ESTIMATE NORMAL (NORMAL)
[2020-02-27 20:11] LABS: PLATELET CLUMPS SMALL AMT
== END ==
LOC: M LABDRAWC 11:46 → M LAB REF 11:46
PROVIDERS: ATTEND Physician Assistant
DX: R30.0 Dysuria (principal); M16.11 Unilateral primary osteoarthritis, right hip; I10 Essential (primary) hypertension; E78.1 Pure hyperglyceridemia; R63.4 Abnormal weight loss

== ENCOUNTER → 2020-05-01 | Outpatient (REF) | payer OTHER ==
[2020-05-01 17:40] LABS: AMORPHOUS SEDIMENT SMALL (NEGATIVE); APPEARANCE, URINE TURBID (CLEAR); BACTERIA, URINE AUTO 1+ (NEGATIVE); BILIRUBIN, URINE AUTO NEGATIVE (NEGATIVE); BLOOD, URINE BLOOD 2+ (NEGATIVE); COLOR, URINE YELLOW (YELLOW); GLUCOSE, URINE (UA) AUTO NEGATIVE (NEGATIVE); KETONE, URINE AUTO TRACE mg/dL (NEGATIVE); LEUKOCYTE ESTERASE, URINE AUTO 2+ (NEGATIVE); MUCUS, URINE SMALL (NEGATIVE); NITRITE, URINE AUTO NEGATIVE (NEGATIVE); PROTEIN, URINE AUTO 1+ mg/dL (NEGATIVE); RBC, URINE AUTO 4 /HPF (0-3); SPECIFIC GRAVITY URINE AUTO 1.028 (1.002-1.035); SQUAMOUS EPITHELIAL CELL UR AU 3 /HPF (0-6); UROBILINOGEN, URINE AUTO 0.2 mg/dL (0.0-2.0); WBC, URINE AUTO 20 /HPF (0-3)
== END ==
LOC: M SFHCCLAY 10:46
PROVIDERS: ATTEND Physician Assistant
DX: R30.0 Dysuria (principal)

== ENCOUNTER → 2020-05-11 | Outpatient (REF) | payer OTHER ==
[2020-05-11 13:34] LABS: BASO # 0.1 10^3/uL (0.0-0.2); BASO % 0.8 % (0.0-1.0); EOS # 0.3 10^3/uL (0.0-0.5); EOS % 2.8 % (0.0-3.0); HEMATOCRIT 33.1 % (36.0-47.0); HEMOGLOBIN 10.8 g/dl (12.0-15.5); LYMPH # 2.2 10^3/uL (1.5-5.0); LYMPH % 20.3 % (24.0-44.0); MEAN CORPUSCULAR HEMOGLOBIN 31.5 pg (27.0-33.0); MEAN CORPUSCULAR HGB CONC 32.6 g/dl (32.0-36.5); MEAN CORPUSCULAR VOLUME 96.5 fl (80.0-96.0); MONO # 0.5 10^3/uL (0.0-0.8); NEUTROPHILS # 7.5 10^3/uL (1.5-8.5); NEUTROPHILS % 70.6 % (36.0-66.0); PLATELET COUNT, AUTOMATED 492 10^3/uL (150-450); RED BLOOD COUNT 3.43 10^6/uL (4.00-5.40); WHITE BLOOD COUNT 10.6 10^3/uL (4.0-10.0)
[2020-05-11 14:15] LABS: ERYTHROCYTE SEDIMENTATION RATE 71 mm/hr (0-30)
[2020-05-11 14:44] LABS: ALBUMIN 3.2 GM/DL (3.2-5.2); ALT/SGPT 7 U/L (12-78); BILIRUBIN,TOTAL 0.2 MG/DL (0.2-1.0); BLOOD UREA NITROGEN 14 MG/DL (7-18); C REACTIVE PROTEIN QUANTITATIV 5.82 MG/DL (0.00-0.30); CALCIUM LEVEL 9.3 MG/DL (8.5-10.1); CARBON DIOXIDE LEVEL 26 MEQ/L (21-32); CHLORIDE LEVEL 107 MEQ/L (98-107); CREATININE FOR GFR 0.67 MG/DL (0.55-1.30); GLOMERULAR FILTRATION RATE > 60.0 (>51); GLUCOSE, FASTING 85 MG/DL (70-100); POTASSIUM SERUM 4.7 MEQ/L (3.5-5.1); SODIUM LEVEL 139 MEQ/L (136-145); TOTAL PROTEIN 6.9 GM/DL (6.4-8.2)
== END ==
LOC: M SFHCRHEU 10:35
PROVIDERS: ATTEND Internal Medicine
DX: M05.79 Rheumatoid arthritis with rheumatoid factor of multiple sites without organ or systems involvement (principal)

== ENCOUNTER → 2020-05-19 | Outpatient (CLI) | payer OTHER ==
--- NOTE | 2020-05-20 03:22 | REP ---
INDICATION: RHEUMATOID ARTHRITIS POSITIVE RHEUMATOID FACTOR COMPARISON: None. TECHNIQUE: AP, lateral, flexion/extension, bilateral oblique, and open-mouth views. FINDINGS: Alignment and lordosis is maintained. There is no evidence for acute fracture / compression injury or subluxation. Mild age-related degenerative changes are appreciated primarily involving C5-6 with endplate sclerosis and minimal disc space narrowing. Open mouth and lateral flexion/extension views demonstrate normal stable C1-C2 articulation and anterior atlantoaxial space. Prevertebral soft tissues are normal. IMPRESSION: Minimal age-related degenerative changes at C5-6. <Electronically signed by Akash Ceballos > 05/20/20 1853
== END ==
LOC: M CLY 11:16
PROVIDERS: ATTEND Internal Medicine
DX: Z01.818 Encounter for other preprocedural examination (principal); M05.79 Rheumatoid arthritis with rheumatoid factor of multiple sites without organ or systems involvement; J44.9 Chronic obstructive pulmonary disease, unspecified

== ENCOUNTER → 2020-05-19 | Outpatient (CLI) | payer OTHER ==
--- NOTE | 2020-05-20 03:20 | REP ---
INDICATION: COPD COMPARISON: 02/27/2007 TECHNIQUE: PA and lateral. FINDINGS: The mediastinum and cardiac silhouette are normal. The lung zhang demonstrate chronic appearing interstitial changes. There is subtle elevation to the right hemidiaphragm with blunting of the costophrenic angle most likely representing progressive chronic changes. No obvious definite significant effusion. No pneumothorax. Skeletal structures are intact. IMPRESSION: Presumed progressive chronic changes (right greater than left). If the patient remains symptomatic consider chest CT for further investigation/follow-up. <Electronically signed by Akash Ceballos > 05/20/20 [id number]
== END ==
LOC: M CLY 11:32
PROVIDERS: ATTEND Physician Assistant
DX: J44.9 Chronic obstructive pulmonary disease, unspecified (principal)

== ENCOUNTER → 2020-05-19 | Outpatient (REF) | payer OTHER ==
[2020-05-19 16:11] LABS: BASO # 0.1 10^3/uL (0.0-0.2); EOS # 0.4 10^3/uL (0.0-0.5); EOS % 3.4 % (0.0-3.0); HEMATOCRIT 36.4 % (36.0-47.0); HEMOGLOBIN 11.3 g/dl (12.0-15.5); LYMPH % 26.6 % (24.0-44.0); MEAN CORPUSCULAR HEMOGLOBIN 30.2 pg (27.0-33.0); MEAN CORPUSCULAR VOLUME 97.3 fl (80.0-96.0); MONO # 0.5 10^3/uL (0.0-0.8); MONO % 4.8 % (0.0-5.0); NEUTROPHILS # 7.1 10^3/uL (1.5-8.5); NEUTROPHILS % 63.9 % (36.0-66.0); PLATELET COUNT, AUTOMATED 430 10^3/uL (150-450); RED BLOOD COUNT 3.74 10^6/uL (4.00-5.40); WHITE BLOOD COUNT 11.1 10^3/uL (4.0-10.0)
[2020-05-19 16:17] LABS: APPEARANCE, URINE HAZY (CLEAR); BACTERIA, URINE AUTO NEGATIVE (NEGATIVE); BILIRUBIN, URINE AUTO NEGATIVE (NEGATIVE); BLOOD, URINE BLOOD 1+ (NEGATIVE); COLOR, URINE YELLOW (YELLOW); GLUCOSE, URINE (UA) AUTO NEGATIVE (NEGATIVE); KETONE, URINE AUTO NEGATIVE (NEGATIVE); LEUKOCYTE ESTERASE, URINE AUTO TRACE (NEGATIVE); MUCUS, URINE SMALL (NEGATIVE); NITRITE, URINE AUTO NEGATIVE (NEGATIVE); PROTEIN, URINE AUTO NEGATIVE (NEGATIVE); RBC, URINE AUTO 4 /HPF (0-3); SQUAMOUS EPITHELIAL CELL UR AU 1 /HPF (0-6); UROBILINOGEN, URINE AUTO 0.2 mg/dL (0.0-2.0); WBC, URINE AUTO 8 /HPF (0-3)
[2020-05-19 16:24] LABS: INR 0.93; PROTHROMBIN TIME 12.7 SECONDS (12.5-14.3)
[2020-05-19 16:31] LABS: ALBUMIN 3.4 GM/DL (3.2-5.2); ALT/SGPT 9 U/L (12-78); BILIRUBIN,TOTAL 0.3 MG/DL (0.2-1.0); BLOOD UREA NITROGEN 12 MG/DL (7-18); CALCIUM LEVEL 9.4 MG/DL (8.5-10.1); CARBON DIOXIDE LEVEL 29 MEQ/L (21-32); CHLORIDE LEVEL 108 MEQ/L (98-107); CREATININE FOR GFR 0.74 MG/DL (0.55-1.30); GLOMERULAR FILTRATION RATE > 60.0 (>51); GLUCOSE, FASTING 88 MG/DL (70-100); POTASSIUM SERUM 4.6 MEQ/L (3.5-5.1); SODIUM LEVEL 141 MEQ/L (136-145); TOTAL PROTEIN 7.2 GM/DL (6.4-8.2)
== END ==
LOC: M SFHCCLAY 10:58
PROVIDERS: ATTEND Physician Assistant
DX: Z01.818 Encounter for other preprocedural examination (principal); R30.0 Dysuria; M05.79 Rheumatoid arthritis with rheumatoid factor of multiple sites without organ or systems involvement

== ENCOUNTER → 2020-05-21 | Outpatient (CLI) | payer OTHER ==
--- NOTE | 2020-05-26 00:16 | ECWPNPC ---
PATIENT NAME: HORTENCIA MINER : 1965 GENDER: FEMALE VISIT DATE: 05/21/2020 DISCHARGE DATE: 05/21/20 1149 VISIT LOCKED DATE TIME: PHYSICIAN: ERNIE BOTELLO PHYSICIAN PAGER NO: ACTIVE RESOURCE: ERNIE BOTELLO REASON FOR APPOINTMENT 1. CHRONIC POLYARTHRALGIA /OSTEO ARTHRITIS/RHEUMATOID ARTHRITIS RIGHT HIP /OTHER CHRONIC PAIN HISTORY OF PRESENT ILLNESS DEPRESSION SCREENING: PHQ-9 LITTLE INTEREST OR PLEASURE IN DOING THINGSNOT AT ALL FEELING DOWN, DEPRESSED, OR HOPELESSNEARLY EVERY DAY TROUBLE FALLING OR STAYING ASLEEP, OR SLEEPING TOO MUCHNEARLY EVERY DAY FEELING TIRED OR HAVING LITTLE ENERGYNEARLY EVERY DAY POOR APPETITE OR OVEREATING SEVERAL DAYS FEELING BAD ABOUT YOURSELF-OR THAT YOU ARE A FAILURE OR HAVE LET YOURSELF OR YOUR FAMILY DOWN SEVERAL DAYS TROUBLE CONCENTRATING ON THINGS, SUCH READING THE NEWSPAPER OR WATCHING TELEVISION NEARLY EVERY DAY MOVING OR SPEAKING SO SLOWLY THAT OTHER PEOPLE COULD HAVE NOTICED. OR THE OPPOSITE- BEING SO FIDGETY OR RESTLESS THAT YOU HAVE BEEN MOVING AROUND A LOT MORE THAN USUALNOT AT ALL THOUGHTS THAT YOU WOULD BE BETTER OFF , OR OF HURTING YOURSELF IN SOME WAY?SEVERAL DAYS(CONSIDER SUICIDE ASSESSMENT RISK) TOTAL SCORE:15 INTERPRETATIONMODERATELY SEVERE DEPRESSION PHQ-2 (2015 EDITION) LITTLE INTEREST OR PLEASURE IN DOING THINGS?NOT AT ALL FEELING DOWN, DEPRESSED, OR HOPELESS?NEARLY EVERY DAY TOTAL SCORE3 GENERAL: 54-YEAR-OLD FEMALE REFERRED BY [facility], [place], [place] FOR CHRONIC LOW BACK PAIN AND RIGHT HIP PAIN. HISTORY OF RHEUMATOID ARTHRITIS. LONG HISTORY OF LOW BACK PAIN AND GENERALIZED JOINT PAIN. IS SCHEDULED FOR RIGHT HIP REPLACEMENT NEXT WEEK. PAIN IS AGGRAVATED WITH ANY PRESSURE OVER RIGHT LEG. SHE IS IN A WHEELCHAIR TODAY. STATES SHE USES A WALKER USUALLY. - - -. FALL RISK SCREENING: SCREENING :NO FALLS REPORTED IN THE LAST YEAR PAIN SCREENING: PATIENT HAS A COMPLAINT OF ACUTE OR CHRONIC PAIN :YES LOCATION OF PAIN: LOW BACK, RIGHT HIP, RIGHT ANKLE INTENSITY OF PAIN (SCALE OF 1 TO 10):10 WHAT DOES YOUR PAIN FEEL LIKE:SHARP DURATION:CONSTANT, AWAKENS FROM SLEEP PAIN IS INCREASED BY:ACTIVITIES, PROLONGED STANDING NURSING NOTE: - - -. PAIN CENTER INTAKE QUESTIONS: DO YOU HAVE A HISTORY OF MRSA? :NO DO YOU TAKE A BLOOD THINNERS? :NO DO YOU HAVE ANY BLEEDING DISORDERS? :NO ANY NEW NUMBNESS OR WEAKNESS IN YOUR LEGS OR ARMS? :NO ANY PACEMAKER,DEFIBRILLATOR, OR DORSAL COLUMN STIMULATOR? :NO DO YOU HAVE ANY RASHES OR OPEN SORES? :YES ACTIVE YEAST INFECTION, CHRONIC UTI, AND SCABS FROM ITCHING ARE YOU ALLERGIC TO IV DYE? :NO ARE YOU DIABETIC? :NO ANY NEW PROBLEMS WITH YOUR MEDICATIONS? :NO HAVE YOU RECEIVED A VACCINE IN THE PAST 30 DAYS? :YES IF SO WHAT VACCINE AND WHEN? FLU VACCINE SATURDAY 05/19 DO YOU PLAN TO RECEIVE A VACCINE IN THE NEXT 21 DAYS? :NO DO YOU NEED ANY PRESCRIPTION? :NO DO YOU TAKE ANY IMMUNOSUPPRESSIVE MEDICATIONS? :YES METHOTHREXATE CURRENT MEDICATIONS TAKING FLUTICASONE PROPIONATE 50 MCG/ACT SUSPENSION 1 SPRAY IN EACH NOSTRIL NASALLY ONCE A DAY TAKING COMP AIR COMPRESSOR NEBULIZER - MISCELLANEOUS DIRECTED J44.9 - TAKING ASPIRIN 81 81 MG TABLET CHEWABLE 1 TABLET ORALLY ONCE A DAY TAKING ERGOCALCIFEROL 1.25 MG (32196 UT) CAPSULE 1 CAPSULE ORALLY WEEKLY TAKING FOLIC ACID 1 MG TABLET 1 TABLET ORALLY ONCE A DAY TAKING SERTRALINE HCL 100 MG TABLET 1 TABLET ORALLY ONCE A DAY TAKING TRAZODONE HCL 100 MG TABLET 1 TABLET AT BEDTIME ORALLY ONCE A DAY TAKING TIZANIDINE HCL 2 MG TABLET 1 TABLET NEEDED ORALLY THREE TIMES A DAY TAKING METHOTREXATE 2.5 MG TABLET 6 TABLETS ORALLY ONCE A WEEK TAKING MUPIROCIN 2 % OINTMENT EXTERNAL , NOTES: HAS NOT STARTED TAKING VITAMIN B12 1000 MCG TABLET EXTENDED RELEASE 1 TABLET ORALLY ONCE A DAY TAKING OMEPRAZOLE 20 MG CAPSULE DELAYED RELEASE 1 CAPSULE 30 MINUTES BEFORE MORNING MEAL ORALLY ONCE A DAY TAKING TRAMADOL HCL 50 MG TABLET 1-2 TABLET NEEDED ORALLY EVERY 6 HRS (MDD 6) TAKING FLUCONAZOLE 150 MG TABLET 1 TABLET ORALLY DAILY TAKING PERCOCET 5-325 MG TABLET 1 TABLET NEEDED ORALLY EVERY 6 HRS (MDD 4 TABS) TAKING COMBIVENT RESPIMAT 20-100 MCG/ACT AEROSOL SOLUTION 1 PUFF INHALATION EVERY 6 HRS TAKING BACTRIM DS 800-160 MG TABLET 1 TABLET ORALLY TWICE A DAY TAKING ALBUTEROL SULFATE HFA 108 (90 BASE) MCG/ACT AEROSOL SOLUTION INHALATION TAKING LISINOPRIL 5 MG TABLET 1 TABLET ORALLY ONCE A DAY TAKING ATORVASTATIN CALCIUM 10 MG TABLET 1 TABLET ORALLY ONCE A DAY NOT-TAKING CHANTIX STARTING MONTH JOYCE 0.5 MG X 11 & 1 MG X 42 TABLET DIRECTED ORALLY DAILY NOT-TAKING SULFASALAZINE 500 MG TABLET 1 TABLET ORALLY BID MEDICATION LIST REVIEWED AND RECONCILED WITH THE PATIENT PAST MEDICAL HISTORY RA OSTEOATHRITIS COPD HYPERTENSION MILD DEPRESSION HYPERLIPIDEMIA SCIATICA- RIGHT LEG TOBACCO ABUSE ALLERGIES PENICILLIN (FOR ALLERGIES USE ONLY): ANAPHYLAXIS - ALLERGY BEE STING: HIVES - ALLERGY WELLBUTRIN: NAUSEA/VOMITING - SIDE EFFECTS CELEBREX: HIVES - ALLERGY SURGICAL HISTORY CHOLECYSTECTOMY COMPLICATED BY BOWEL PERFORATION 2009 TUBAL SCHEDULED FOR RIGT HIP ARTHROPLASTY 06/01/20 FAMILY HISTORY FATHER: 78 YRS, LUNG CANCER, RENAL CANCER, DIAGNOSED WITH DIABETES, OTHER MALIGNANT NEOPLASM OF UNSPECIFIED SITE MOTHER: ALIVE, UNSPECIFIED HEART DISEASE, DIABETES SIBLINGS: DIABETES 2 SON(S) , 1 DAUGHTER(S) . FATHER OF LUNG CAYOUNGEST CHILD- AUTSIM SPCTRUM AND EPILEPSY. SOCIAL HISTORY GENERAL: TOBACCO USE ARE YOU A:CURRENT SMOKER ARE YOU INTERESTED IN QUITTING?NOT READY TO QUIT HOW MANY CIGARETTES A DAY DO YOU SMOKE?21-30 HOW SOON AFTER YOU WAKE UP DO YOU SMOKE YOUR FIRST CIGARETTE?6-30 MIN HOW OFTEN DO YOU SMOKE CIGARETTES?EVERY DAY PATIENT COUNSELED ON THE DANGERS OF TOBACCO USE AND URGED TO QUIT:05/21/2020 VAPORNO E-CIGARETTENO LATEX QUESTIONNAIRE LATEX ALLERGY : HAVE YOU EVER DEVELOPED ANY TYPE OF REACTION AFTER HANDLING LATEX PRODUCTS SUCH RUBBER GLOVES, CONDOMS, DIAPHRAGMS, BALLOONS, SOCKS, OR UNDERWEAR?NO LATEX ALLERGY : HAVE YOU EVER DEVELOPED ANY TYPE OF REACTION DURING OR AFTER DENTAL APPOINTMENT, VAGINAL/RECTAL EXAMINATION, SURGICAL PROCEDURE, OR ANY OTHER EXPOSURE?NO DATE ASKED : 05/11/2020 LATEX RISK : HAVE YOU EVER HAD ANY DIFFICULTY BREATHING OR HIVES AFTER EATING OR HANDLING ANY FRUITS, OR VEGETABLES; SUCH KIWI, BANANAS, STONE FRUITS, OR CHESTNUTSNO LATEX RISK : DO YOU HAVE A PREVIOUS PERSONAL HISTORY OF MORE THAN NINE SURGERIES, SPINA BIFIDA, OR REPEATED CATHERIZATIONS? NO LATEX RISK : ARE YOU FREQUENTLY EXPOSED TO LATEX PRODUCTS IN YOUR OCCUPATION?NO ALCOHOL SCREENING DID YOU HAVE A DRINK CONTAINING ALCOHOL IN THE PAST YEAR?NO POINTS0 INTERPRETATIONNEGATIVE RECREATIONAL DRUG USE DRUG USE?NO CAFFEINE CAFFEINE USE?YES 1-2 POTS OF COFFEE DRUZE DRUZE NO HOAHAOISM BELIEFS THAT WOULD IMPACT HEALTH CARE. 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 DIET: REGULAR. EXERCISE: NO REGULAR EXERCISE. ADVANCE DIRECTIVE ADVANCE DIRECTIVE DISCUSSED WITH PATIENT:YES HCP LACI CANNON (SISTER) HOSPITALIZATION/MAJOR DIAGNOSTIC PROCEDURE CHOLECYSTECTOMY COMPLICATED BY BOWEL PERFORATION 2009 CHILD X3 REVIEW OF SYSTEMS CONSTITUTIONAL: ANY RECENT FEVER NO . CHILLS NO . WEIGHT CHANGE OF UNKNOWN REASONS NO . GASTROENTEROLOGY: NEW UNEXPLAINABLE CHANGES IN BOWEL CONTROL NO . CONSTIPATION NO . GENITOURINARY: ANY NEW CHANGE IN BLADDER CONTROL? NO . NEUROLOGY: NEW ONSET DIZZINESS OR NEUROLOGICAL CHANGES NOT MENTIONED NO . NEW NUMBNESS OR PAIN PATTERNS NOT MENTIONED AND PERTINENT TO TODAY'S VISIT NO . CARDIOLOGY: NEW CHEST PRESSURE NO . NEW CHEST PAIN NO . RESPIRATORY: UNEXPLAINABLE COUGH NO . NEW SHORTNESS OF BREATH NO . VITAL SIGNS WT 167.8 LBS, HT 63 IN, BMI 29.72 INDEX, BP 137/57 MM HG, HR 89 /MIN, RR 18 /MIN, TEMP 96.3 F, OXYGEN SAT % 97%, BLOOD GLUCOSE LEVEL N/A, SAFE IN ENV? (Y/N) YES, NA INITIALS AW 1114, REVIEWED BY: PAO HIGHTOWER GEOLOGY TEACHER. EXAMINATION GENERAL EXAMINATION: GENERAL ALERT,NO DISTRESS . PSYCH AFFECT NORMAL . LUNGS: LUNG SOUNDS ARE CLEAR . HEART: HEART RATE REGULAR . MUSCULOSKELETAL: MST 5/5 BILAT. LOWER EXTREMITIES . LUMBAR: TENDERNESS RIGHT. SIJ . NEUROLOGIC EXAM:WEAKNESS NOTED OVER RIGHT LEG. NORMAL SENSATION TO LIGHT TOUCH BILATERAL LOWER EXTREMITIES. DIAGNOSTIC TESTS REVIEWED CT L/S [id number] . ASSESSMENTS SACROILIITIS - M46.1 (PRIMARY) TREATMENT SACROILIITIS NOTES: DISCUSSED TREATMENT OPTIONS TO INCLUDE SACROILIAC JOINT STEROID INJECTION. PATIENT WILL BE FOLLOWING UP WITH US TO DISCUSS TREATMENT PLAN IN 3 MONTHS. HAVING RIGHT HIP REPLACEMENT NEXT WEEK. CONSIDER MRI OF LS SPINE . SHE WOULD ALSO NEED RHEUMATOLOGY TO OKAY HER TO BE OFF OF METHOTREXATE PRE-STEROID INJECTION. PATIENT REPORTS SITUATIONAL DEPRESSION/ANXIETY BUT DENIES SUICIDAL OR HOMICIDAL IDEATIONS. 05/21/20 1238 PATIENT SCREENED USING PHQ2 AND 9, PATIENT DENIES MENTAL HEALTH SERVICES AT THIS TIME, PATIENT GIVEN [facility] INFORMATION. DONOVAN HIGHTOWER GEOLOGY TEACHER. PROCEDURE CODES FA211 ESTABILISHED PATIENT [facility] CHARGE DISPOSITION & COMMUNICATION FOLLOW UP 3 MONTHS (REASON: CONSIDER TREATMENT PLAN) ELECTRONICALLY SIGNED BY EDWARD JAY ON 05/25/2020 AT 11:01 AM EST DISCLAIMER : THIS IS A VISIT SUMMARY EXTRACTED FROM THE [employer] CHART. IT IS NOT A COPY OF THE [employer] PROGRESS NOTE. ANGELA
== END ==
LOC: M PAIN 11:00
PROVIDERS: ATTEND Nurse Practitioner Family
DX: M46.1 Sacroiliitis, not elsewhere classified (principal); M06.9 Rheumatoid arthritis, unspecified; J44.9 Chronic obstructive pulmonary disease, unspecified; I10 Essential (primary) hypertension; F32.9 Major depressive disorder, single episode, unspecified; E78.5 Hyperlipidemia, unspecified; F17.210 Nicotine dependence, cigarettes, uncomplicated; M19.90 Unspecified osteoarthritis, unspecified site; Z79.891 Long term (current) use of opiate analgesic; Z79.899 Other long term (current) drug therapy; Z88.0 Allergy status to penicillin; Z88.8 Allergy status to other drugs, medicaments and biological substances; Z91.030 Bee allergy status

== ENCOUNTER → 2020-05-25 | Outpatient (REF) | payer OTHER ==
[2020-05-25 14:04] LABS: APPEARANCE, URINE CLEAR (CLEAR); BACTERIA, URINE AUTO NEGATIVE (NEGATIVE); BILIRUBIN, URINE AUTO NEGATIVE (NEGATIVE); BLOOD, URINE BLOOD NEGATIVE (NEGATIVE); COLOR, URINE STRAW (YELLOW); GLUCOSE, URINE (UA) AUTO NEGATIVE (NEGATIVE); KETONE, URINE AUTO NEGATIVE (NEGATIVE); LEUKOCYTE ESTERASE, URINE AUTO NEGATIVE (NEGATIVE); NITRITE, URINE AUTO NEGATIVE (NEGATIVE); PROTEIN, URINE AUTO NEGATIVE (NEGATIVE); RBC, URINE AUTO 0 /HPF (0-3); SPECIFIC GRAVITY URINE AUTO 1.003 (1.002-1.035); SQUAMOUS EPITHELIAL CELL UR AU 0 /HPF (0-6); UROBILINOGEN, URINE AUTO 0.2 mg/dL (0.0-2.0); WBC, URINE AUTO 0 /HPF (0-3)
== END ==
LOC: M SMT 13:18
PROVIDERS: ATTEND Urology
DX: N39.0 Urinary tract infection, site not specified (principal)

== ENCOUNTER → 2020-09-22 | Outpatient (REF) | payer OTHER ==
[~2020-09-22] MED LIST changes: -LISI-542 PO; +LISI-898 PO
[2020-09-23 11:33] LABS: BASO # 0.2 10^3/uL (0.0-0.2); BASO % 1.3 % (0.0-1.0); EOS # 0.4 10^3/uL (0.0-0.5); EOS % 3.6 % (0.0-3.0); HEMATOCRIT 39.1 % (36.0-47.0); HEMOGLOBIN 12.2 g/dl (12.0-15.5); LYMPH # 3.5 10^3/uL (1.5-5.0); MEAN CORPUSCULAR HEMOGLOBIN 30.1 pg (27.0-33.0); MEAN CORPUSCULAR HGB CONC 31.2 g/dl (32.0-36.5); MEAN CORPUSCULAR VOLUME 96.5 fl (80.0-96.0); MONO # 0.7 10^3/uL (0.0-0.8); MONO % 5.5 % (2.0-8.0); NEUTROPHILS # 7.2 10^3/uL (1.5-8.5); NEUTROPHILS % 59.3 % (36.0-66.0); PLATELET COUNT, AUTOMATED 526 10^3/uL (150-450); RED BLOOD COUNT 4.05 10^6/uL (4.00-5.40); WHITE BLOOD COUNT 12.1 10^3/uL (4.0-10.0)
[2020-09-23 11:53] LABS: ERYTHROCYTE SEDIMENTATION RATE 79 mm/hr (0-30)
[2020-09-23 12:05] LABS: ALBUMIN 3.7 GM/DL (3.2-5.2); ALT/SGPT 29 U/L (12-78); BILIRUBIN,TOTAL 0.1 MG/DL (0.2-1.0); BLOOD UREA NITROGEN 12 MG/DL (7-18); C REACTIVE PROTEIN QUANTITATIV 2.16 MG/DL (0.00-0.30); CALCIUM LEVEL 9.5 MG/DL (8.5-10.1); CARBON DIOXIDE LEVEL 30 MEQ/L (21-32); CHLORIDE LEVEL 105 MEQ/L (98-107); CREATININE FOR GFR 0.81 MG/DL (0.55-1.30); GLOMERULAR FILTRATION RATE > 60.0 (>51); GLUCOSE, FASTING 93 MG/DL (70-100); POTASSIUM SERUM 5.4 MEQ/L (3.5-5.1); SODIUM LEVEL 138 MEQ/L (136-145); TOTAL PROTEIN 7.9 GM/DL (6.4-8.2)
[2020-09-23 12:10] LABS: FOLATE 19.2 NG/ML; VITAMIN B12 LEVEL 445 PG/ML
== END ==
LOC: M SFHCCLAY 14:31
PROVIDERS: ATTEND Physician Assistant
DX: M05.79 Rheumatoid arthritis with rheumatoid factor of multiple sites without organ or systems involvement (principal); E53.8 Deficiency of other specified B group vitamins; N30.90 Cystitis, unspecified without hematuria

== ENCOUNTER → 2020-10-22 | Outpatient (CLI) | payer OTHER ==
[~2020-10-22] MED LIST changes: +ISOVUE-370 76% 100ML VIAL As Ordered ONE
--- NOTE | 2020-10-22 16:35 | REP ---
INDICATION: CHRONIC OBSTRUCTIVE PULMONARY DISEASE COMPARISON: None TECHNIQUE: Axial contrast enhanced images from the thoracic inlet to the upper abdomen with coronal and sagittal reformations using 75 ml Isovue 370 intravenous contrast material. [address] CT examination was performed using the following dose reduction techniques: Automated exposure control, adjustment of mA and/or kv according to the patient's size, and use of iterative reconstruction technique. FINDINGS: Advanced COPD/emphysematous changes are appreciated with scattered bullae, fibrosis/scarring, and mild early perihilar bronchiectasis. There is somewhat curvilinear ill-defined area of interstitial and septal thickening with underlying focal area of chronic bronchiectasis identified in the left upper lobe which is likely chronic. No acute consolidation, further significant nodule or mass lesion. No effusion. No pneumothorax. Mediastinum demonstrates minimal atherosclerotic changes to the thoracic aorta and coronary arteries without aortic aneurysm or cardiomegaly. There is a small to moderate pericardial effusion of uncertain etiology or significance. No hilar or mediastinal adenopathy. Limited upper abdomen demonstrates prior cholecystectomy with compensatory biliary dilatation. The bilateral adrenal glands are normal. The surrounding musculoskeletal structures appear intact and without acute osseous abnormality; old right 3rd rib fracture noted. IMPRESSION: 1. Advanced COPD/emphysematous disease. 2. Focal area of curvilinear septal thickening and fibrosis/scarring surrounding an area of the left upper lobe bronchiectasis likely represent sequelae of prior pulmonary process and less likely active disease. 3. There is a small to moderate pericardial effusion of uncertain etiology or significance and correlation is recommended. <Electronically signed by Akash Ceballos > 10/22/20 [id number]
== END ==
LOC: M RAD 15:43
PROVIDERS: ATTEND Physician Assistant
DX: R91.8 Other nonspecific abnormal finding of lung field (principal); J44.9 Chronic obstructive pulmonary disease, unspecified; R93.89 Abnormal findings on diagnostic imaging of other specified body structures
CPT/HCPCS: 71260; Q9967

== ENCOUNTER → 2021-01-21 | Outpatient (REF) | payer OTHER ==
[~2021-01-21] MED LIST changes: -ISOVUE-370 76% 100ML VIAL As Ordered ONE
[2021-01-21 12:26] LABS: BASO # 0.1 10^3/uL (0.0-0.2); BASO % 0.6 % (0.0-1.0); EOS # 0.2 10^3/uL (0.0-0.5); EOS % 1.6 % (0.0-3.0); HEMATOCRIT 39.2 % (36.0-47.0); HEMOGLOBIN 12.5 g/dl (12.0-15.5); LYMPH # 2.7 10^3/uL (1.5-5.0); LYMPH % 21.5 % (24.0-44.0); MEAN CORPUSCULAR HEMOGLOBIN 31.3 pg (27.0-33.0); MEAN CORPUSCULAR HGB CONC 31.9 g/dl (32.0-36.5); MEAN CORPUSCULAR VOLUME 98.2 fl (80.0-96.0); MONO # 0.5 10^3/uL (0.0-0.8); MONO % 4.1 % (2.0-8.0); NEUTROPHILS # 8.9 10^3/uL (1.5-8.5); NEUTROPHILS % 71.6 % (36.0-66.0); PLATELET COUNT, AUTOMATED 345 10^3/uL (150-450); RED BLOOD COUNT 3.99 10^6/uL (4.00-5.40); WHITE BLOOD COUNT 12.4 10^3/uL (4.0-10.0)
[2021-01-21 12:41] LABS: ALBUMIN 3.8 GM/DL (3.2-5.2); ALT/SGPT 80 U/L (12-78); BILIRUBIN,TOTAL 0.4 MG/DL (0.2-1.0); BLOOD UREA NITROGEN 11 MG/DL (7-18); C REACTIVE PROTEIN QUANTITATIV 1.79 MG/DL (0.00-0.30); CALCIUM LEVEL 9.2 MG/DL (8.5-10.1); CARBON DIOXIDE LEVEL 30 MEQ/L (21-32); CHLORIDE LEVEL 105 MEQ/L (98-107); CREATININE FOR GFR 0.74 MG/DL (0.55-1.30); GLOMERULAR FILTRATION RATE > 60.0 (>51); GLUCOSE, FASTING 94 MG/DL (70-100); POTASSIUM SERUM 5.1 MEQ/L (3.5-5.1); SODIUM LEVEL 138 MEQ/L (136-145); TOTAL PROTEIN 7.6 GM/DL (6.4-8.2)
[2021-01-21 12:58] LABS: ERYTHROCYTE SEDIMENTATION RATE 44 mm/hr (0-30)
== END ==
LOC: M SFHCRHEU 10:40
PROVIDERS: ATTEND Internal Medicine Rheumatology
DX: M05.79 Rheumatoid arthritis with rheumatoid factor of multiple sites without organ or systems involvement (principal); M89.49 Other hypertrophic osteoarthropathy, multiple sites; H04.129 Dry eye syndrome of unspecified lacrimal gland; I31.3 Pericardial effusion (noninflammatory); Z79.899 Other long term (current) drug therapy

== ENCOUNTER → 2021-02-02 | Outpatient (REF) | payer OTHER | LOC: M SFHCCAPE 13:32 | PROVIDERS: ATTEND Physician Assistant | DX: R35.0 Frequency of micturition (principal) ==

== ENCOUNTER → 2021-02-10 | Outpatient (CLI) | payer OTHER ==
[~2021-02-10] MED LIST changes: +ASPI1CHW3 PO; +BELB75MI PO; +DULO30CA9 PO; +ERGO500029 PO; +OXYC-517 PO; +TIZA1TAB12 PO
== END ==
LOC: M PAIN 11:45
PROVIDERS: ATTEND Anesthesiology
DX: M25.551 Pain in right hip (principal); M94.251 Chondromalacia, right hip; Z79.891 Long term (current) use of opiate analgesic; Z87.39 Personal history of other diseases of the musculoskeletal system and connective tissue; Z87.09 Personal history of other diseases of the respiratory system; M06.9 Rheumatoid arthritis, unspecified; J44.9 Chronic obstructive pulmonary disease, unspecified; M19.90 Unspecified osteoarthritis, unspecified site; I10 Essential (primary) hypertension; F32.9 Major depressive disorder, single episode, unspecified; E78.5 Hyperlipidemia, unspecified; M79.7 Fibromyalgia; F17.210 Nicotine dependence, cigarettes, uncomplicated; M54.31 Sciatica, right side; Z79.82 Long term (current) use of aspirin; Z79.899 Other long term (current) drug therapy; Z88.0 Allergy status to penicillin; Z88.8 Allergy status to other drugs, medicaments and biological substances; Z91.030 Bee allergy status

== ENCOUNTER 2021-02-12 00:15 | Emergency (ER) | payer OTHER ==
[~2021-02-12] VITALS: Ht 160 cm; Wt 80.9 kg
[~2021-02-12 00:15] MED LIST changes: -ASPI1CHW3 PO; -BELB75MI PO; -DULO30CA9 PO; -ERGO500029 PO; -OXYC-517 PO; -TIZA1TAB12 PO
[2021-02-12] MEDS ORDERED: MORPHINE 4 MG/ML 1ML VIAL/SYRINGE (J2270) IV ONE (01:50)
[2021-02-12] MEDS ORDERED: ASPI1CHW3 PO (02:36)
[2021-02-12] MEDS ORDERED: LISI-898 PO (02:36)
[2021-02-12] MEDS ORDERED: TRAZ-189 PO (02:36)
[2021-02-12] MEDS ORDERED: METH2.5T48 PO (02:36)
[2021-02-12] MEDS ORDERED: COMBAER6 INH (02:36)
[2021-02-12] MEDS ORDERED: DULO30CA9 PO (02:36)
[2021-02-12] MEDS ORDERED: TRAM50TA2 PO (02:36)
[2021-02-12] MEDS ORDERED: ATOR1TAB19 PO (02:36)
[2021-02-12] MEDS ORDERED: ERGO500029 PO (02:36)
[2021-02-12] MEDS ORDERED: FOLI1TAB11 PO (02:36)
[2021-02-12] MEDS ORDERED: OXYC-517 PO (02:36)
[2021-02-12] MEDS ORDERED: TIZA1TAB12 PO (02:36)
[2021-02-12] MEDS ORDERED: BELB75MI PO (02:36)
[2021-02-12] MEDS ORDERED: HOME MED LIST COMPLETE! XX SCH (02:40)
[2021-02-12] MEDS: MORPHINE 4 MG/ML 1ML VIAL/SYRINGE (J2270) IV PRN ×2 (02:53→03:31)
[2021-02-12 03:00] LABS: RSV AMPLIFICATION NEGATIVE (NEGATIVE)
[2021-02-12 04:30] VITALS: BP 149/77
--- NOTE | 2021-02-12 05:53 | REPVR ---
PROCEDURE INFORMATION: Exam: XR Right Hip Exam date and time: 02/12/2021 3:23 AM Age: 55 years old Clinical indication: Hip pain; Right hip; Additional info: Fall 4 days ago, severe pain since R hip TECHNIQUE: Imaging protocol: XR Right hip. Views: 1 view hip with pelvis when performed. COMPARISON: 1. CR PELVIS/ OUTSIDE PRIOR 02/08/2021 7:10 PM 2. MRI-Hip WITHOUT CONTRAST 10/02/2019 7:59:15 AM FINDINGS: Bones/joints: Severe acetabular protrusion on the right. There is destruction of half of the right femoral head. No dislocation. No acute fracture. Soft tissues: Unremarkable. IMPRESSION: 1. Severe acetabular protrusion on the right. Unchanged from prior. 2. There is destruction of half of the right femoral head. Unchanged from prior. 3. However femoral head destruction is severely progressed from 10/02/2019. Electronically signed by: Morena Archuleta On 02/12/2021 05:53:08 AM
--- NOTE | 2021-02-13 08:00 | ED PDOC ---
Post-Departure Follow-Up radiology report faxed to jazmin bear Sarah MD Feb 13, 2021 08:00
== END 2021-02-12 05:10 | disposition home or self-care (01) ==
LOC: M ED 01:09
DX: M25.551 Pain in right hip (principal); I10 Essential (primary) hypertension; E78.5 Hyperlipidemia, unspecified; M06.9 Rheumatoid arthritis, unspecified; Z79.899 Other long term (current) drug therapy; Z79.82 Long term (current) use of aspirin; Z88.0 Allergy status to penicillin; Z88.8 Allergy status to other drugs, medicaments and biological substances; F17.210 Nicotine dependence, cigarettes, uncomplicated
CPT/HCPCS: 73502; 87631; 94760; 96374; 96376; 99284; J2270

== ENCOUNTER → 2021-03-02 | Outpatient (REF) | payer OTHER ==
[~2021-03-02] MED LIST changes: +ASPI1CHW3 PO; +BELB75MI PO; +DULO30CA9 PO; +ERGO500029 PO; -LISI-898 PO; +LISI5TAB11 PO; +OXYC-517 PO; +TIZA1TAB12 PO; +[UNRECOGNIZED DRUG - CODE] BC
[2021-03-03 13:17] LABS: APPEARANCE, URINE HAZY (CLEAR); BACTERIA, URINE AUTO NEGATIVE (NEGATIVE); BILIRUBIN, URINE AUTO NEGATIVE (NEGATIVE); BLOOD, URINE BLOOD NEGATIVE (NEGATIVE); COLOR, URINE YELLOW (YELLOW); GLUCOSE, URINE (UA) AUTO NEGATIVE (NEGATIVE); KETONE, URINE AUTO NEGATIVE (NEGATIVE); LEUKOCYTE ESTERASE, URINE AUTO NEGATIVE (NEGATIVE); MUCUS, URINE SMALL (NEGATIVE); NITRITE, URINE AUTO NEGATIVE (NEGATIVE); PROTEIN, URINE AUTO NEGATIVE (NEGATIVE); RBC, URINE AUTO 3 /HPF (0-3); SPECIFIC GRAVITY URINE AUTO 1.018 (1.002-1.035); SQUAMOUS EPITHELIAL CELL UR AU 2 /HPF (0-6); UROBILINOGEN, URINE AUTO 0.2 mg/dL (0.0-2.0); WBC, URINE AUTO 1 /HPF (0-3)
== END ==
LOC: M SFHCCAPE 12:29
PROVIDERS: ATTEND Physician Assistant
DX: N39.0 Urinary tract infection, site not specified (principal)

== ENCOUNTER 2021-03-21 10:12 | Inpatient (IN) | payer OTHER ==
[~2021-03-21] VITALS: Ht 160 cm; Wt 86.0 kg
[~2021-03-21 10:12] MED LIST changes: +LISI-898 PO; -LISI5TAB11 PO; -[UNRECOGNIZED DRUG - CODE] BC
[2021-03-21] MEDS ORDERED: NS 500 ML IV ONE (10:25)
[2021-03-21 10:47] LABS: BASO # 0.1 10^3/uL (0.0-0.2); BASO % 0.3 % (0.0-1.0); EOS # 0.2 10^3/uL (0.0-0.5); EOS % 1.2 % (0.0-3.0); HEMATOCRIT 27.1 % (36.0-47.0); HEMOGLOBIN 8.5 g/dl (12.0-15.5); LYMPH # 1.7 10^3/uL (1.5-5.0); LYMPH % 8.8 % (24.0-44.0); MEAN CORPUSCULAR HEMOGLOBIN 28.8 pg (27.0-33.0); MEAN CORPUSCULAR HGB CONC 31.4 g/dl (32.0-36.5); MEAN CORPUSCULAR VOLUME 91.9 fl (80.0-96.0); MONO # 0.9 10^3/uL (0.0-0.8); MONO % 4.9 % (2.0-8.0); NEUTROPHILS # 15.7 10^3/uL (1.5-8.5); NEUTROPHILS % 83.8 % (36.0-66.0); PLATELET COUNT, AUTOMATED 412 10^3/uL (150-450); RED BLOOD COUNT 2.95 10^6/uL (4.00-5.40); WHITE BLOOD COUNT 18.7 10^3/uL (4.0-10.0)
[2021-03-21] MEDS ORDERED: MORPHINE 2 MG/ML 1ML VIAL (J2270) IV ONE (10:50)
[2021-03-21] MEDS ORDERED: ONDANSETRON 4MG/2ML VIAL IV ONE (10:50)
[2021-03-21] MEDS ORDERED: VANCOMYCIN HCL 1,750 MG in NS 250 ML IV ONE (10:55)
[2021-03-21] MEDS ORDERED: VANCOMYCIN HCL 1,000 MG, VIAL MATE ADAPTER 1 EACH in NS 250 ML IV ONE (11:00)
--- NOTE | 2021-03-21 11:00 | REP ---
INDICATION: abscess. COMPARISON: PA and lateral chest images, 05/19/2020. TECHNIQUE: Upright AP portable chest image was obtained. FINDINGS: There is cardiomegaly without congestive heart failure. There is upper lobe predominant bolus emphysema. There is no lobar consolidation. There is chronic blunting of the right costophrenic angle. IMPRESSION: 1. Emphysema. 2. Cardiomegaly. 3. No evidence of acute cardiopulmonary pathology. No significant change. <Electronically signed by London Paredes > 03/21/21 1059
[2021-03-21 11:12] LABS: INR 1.17; PROTHROMBIN TIME 15.3 SECONDS (12.7-14.5)
[2021-03-21 11:13] LABS: PARTIAL THROMBOPLASTIN TIME 37.5 SECONDS (25.9-37.0)
[2021-03-21 11:15] LABS: ALBUMIN 2.4 GM/DL (3.2-5.2); ALT/SGPT 12 U/L (12-78); AMYLASE 11 U/L (25-115); BILIRUBIN,DIRECT 0.1 MG/DL (0.0-0.2); BILIRUBIN,TOTAL 0.4 MG/DL (0.2-1.0); LIPASE 50 U/L (73-393); TOTAL PROTEIN 6.6 GM/DL (6.4-8.2)
[2021-03-21] MEDS ORDERED: MORPHINE 2 MG/ML 1ML VIAL (J2270) IV PRN ×2 (11:15→15:55)
[2021-03-21] MEDS ORDERED: POTASSIUM CHLORIDE 10MEQ SR TABLET PO ONE (11:30)
[2021-03-21 11:43] LABS: RSV AMPLIFICATION NEGATIVE (NEGATIVE)
[2021-03-21 11:52] LABS: MAGNESIUM LEVEL 2.5 MG/DL (1.8-2.4)
[2021-03-21] MEDS ORDERED: VANCOMYCIN HCL 750 MG, VIAL MATE ADAPTER 1 EACH in NS 250 ML IV ONE (12:00)
[2021-03-21] MEDS ORDERED: LIDOCAINE 2% W/EPINEPHRINE 20ML VIAL **PRES FREE INJ ONE (12:05)
[2021-03-21] MEDS ORDERED: [UNRECOGNIZED DRUG - CODE] BC (12:11)
--- NOTE | 2021-03-21 12:14 | REP ---
INDICATION: assess abscess upper leg and size ro dvt. COMPARISON: None. TECHNIQUE: Color Doppler ultrasound evaluation of the deep venous system of the left lower extremity was performed. FINDINGS: There is no evidence of deep venous thrombosis of the left lower extremity. IMPRESSION: No evidence of deep venous thrombosis of the left lower extremity. <Electronically signed by London Paredes > 03/21/21 [id number]
[2021-03-21] MEDS ORDERED: HOME MED LIST COMPLETE! XX SCH (12:15)
--- NOTE | 2021-03-21 12:17 | REP ---
INDICATION: ABSCESS. COMPARISON: None. TECHNIQUE: 2D ultrasound supplemented by color Doppler was performed in the area of the abscess in the left lower extremity. FINDINGS: The area of redness swelling and drainage in the left posteromedial aspect of the left thigh, proximally, demonstrates a complex fluid collection containing air bubbles measuring 3.1 x 1.6 x 1.0 cm. No fistula tract was demonstrated. IMPRESSION: Complex fluid collection containing air in the left thigh as described. No fistula is demonstrated. <Electronically signed by London Paredes > 03/21/21 [id number]
[2021-03-21] MEDS ORDERED: MORPHINE 4 MG/ML 1ML VIAL/SYRINGE (J2270) IV ONE (12:35)
[2021-03-21] MEDS ORDERED: CLINDAMYCIN 900 MG in IV 1 EA IV ONE (12:35)
--- NOTE | 2021-03-21 12:38 | HPEPDOC ---
[facility] Medical History & Physical Date of Admission Mar 21, 2021 Date of Service: Mar 21, 2021 History and Physical CHIEF COMPLAINT: Left thigh pain and swelling HISTORY OF PRESENT ILLNESS: 55-year-old female, with a past medical history of rheumatoid arthritis presently methotrexate, COPD not O2 dependent, OA of the right hip following with Ortho, hyperlipidemia, sciatica of the right leg. Patient presents to the ER with a 5-day history of worsening left thigh pain at the site of a large 15 cm swelling on the anterior aspect. The swelling is firm surrounded by an area of erythema. Patient states she applied tempted to apply warm compresses until some purulent discharge came out of the swelling. Patient is presently afebrile but presents with a white count of 18.7. Hemoglobin 8.5. Lactic acid is 1.5. Dr. Pool was consulted from the ER. Found necrotic tissue on dissection. High concern for necrotizing fasciitis. Patient will be taken to OR urgently. Blood cultures and wound cultures have been sent. Patient will be admitted to hospitalist service. Of note, patient was discovered to have a pericardial effusion on CT scan from 10/21/2020 as part of her rheumatological and COPD work-up. Patient denies any chest pain shortness of breath palpitations or lower extremity edema. Going to rheumatology notes plan was to repeat echocardiogram in 6 months. PAST MEDICAL HISTORY: Rheumatoid arthritis, follows with Dr. Rosenbaum. Currently on methotrexate. COPD not oxygen dependent Hypertension Osteoarthritis of right hip Hyperlipidemia Sciatica of the right leg Tobacco abuse. PAST SURGICAL HISTORY: Cholecystectomy Intraoperative bowel perforation SOCIAL HISTORY: Active smoker, 1 pack/day Denies alcohol use Denies illicit drug use FAMILY HISTORY: Father: from lung cancer, diabetes, renal cancer Mother: history of heart disease ALLERGIES: Please see below. REVIEW OF SYSTEMS: 10 point ROS was conducted, relevant findings noted in HPI HOME MEDICATIONS: Please see below. PHYSICAL EXAMINATION: VITAL SIGNS: please see below General: NAD, comfortable HEENT: PERRLA, EOMI, sclerae clear Neck: supple, normal ROM, no JVD Respiratory: lungs CTAB, no wheeze, no rales, no crackles CVS: RRR, normal S1, S2, no murmurs Abdo: soft, no masses, no hepatosplenomegaly, BS+, no rebound tenderness Extremities: Left mid thigh anterior aspect, large 15 cm swelling with central area of induration. Foul odor. Surrounding cellulitis. high suspicion necrotizing fasciitis. MSK: no joint deformities, normal ROM Neuro: no focal neuro deficits, moving all 4 extremities, CN2-12 intact. Strength 5/5 in all 4 extremities. No nystagmus. Psych: calm, cooperative, AAO x 3 LABORATORY DATA: See below. IMAGING: CXR 03/21/2021 IMPRESSION: 1. Emphysema. 2. Cardiomegaly. 3. No evidence of acute cardiopulmonary pathology. No significant change Venous duplex LLE (03/21/21): IMPRESSION: No evidence of deep venous thrombosis of the left lower extremity US L thigh (03/21/21): FINDINGS: The area of redness swelling and drainage in the left posteromedial aspect of the left thigh, proximally, demonstrates a complex fluid collection containing air bubbles measuring 3.1 x 1.6 x 1.0 cm. No fistula tract was demonstrated. IMPRESSION: Complex fluid collection containing air in the left thigh as described. No fistula is demonstrated. MICROBIOLOGY: Please see below. ASSESSMENT: 55-year-old female, with a past medical history of rheumatoid arthritis presently methotrexate, COPD not O2 dependent, OA of the right hip,, hyperlipidemia, sciatica of the right leg. Presented with a left thigh abscess for the past 4 days. Plan is for bedside I&D by Dr. Pool. Patient may require IR drainage if unsuccessful. Presently on empiric vancomycin. Admitted to hospitalist service for the management of left thigh abscess with surrounding cellulitis. Patient also found to have incidental pericardial effusion onon CT scan from October 2020. We will obtain a bedside echo while inpatient to rule out increase in size versus tamponade. Patient at this time denies any chest pain shortness breath palpitations. No lower extremity edema . PLAN: L thigh abscess/necrotizing fasciitis - WBC 18.7, LA 1.5. Afebrile. No SIRS criteria. - US of area showing 3.1 x 1.6 x 1.0 cm complex fluid collection. No DVT seen on venous duplex. - blood and wound cultures sent. - started on empiric vanco in ER. - Dr. Pool consulte, taking patient to OR for urgent debridement - RCRI Class I. 6.0% risk of , NC, or cardiac arrest. - patient has known pericardial effusion, clinically shows no signs of tamponade. BNP 18. Trop < 0.02. No dyspnea, no edema, no hypotension. Given need for urgent debridement for necrotizing fasciitis, patient's need for OR outweigh risks. I d/w w Dr. Raymundo and Dr. Pool. Patient to proceed for OR. - c/w vancomycin. add clindamycin 600 mg IV q8h. add meropenem 1g q8h - admit to PCU COPD - Not O2 dependent - will resume inhalers. - saturating at 96% on RA - active smoking - was referred to pulm by PCP, has not yet followed up Pericardial effusion - incident finding on CT in 10/2020 - denies SOB, palpitations, edema - normotensive - will obtain 2D Echo while inpatient, to r/o increase in size, tamponade Anemia, normocytic: - baseline hgb 12.5 - on arrival 8.5 - denies gross bleeding - will check FOBT - check iron panel RA - presently on methotrexate. Takes folate - follows with Dr. Rosenbaum at [facility] Rheumatology - has good follow up R Hip OA - pending R hip replacement. - due to incidental pericardial effusion, was pending workup by pulm and cardio DVT ppx: mechanical ppx due to anemia. Dispo: pending clinical improvement. Vital Signs Vital Signs Date Time Temp Pulse Resp B/P (MAP) Pulse Ox O2 Delivery O2 Flow Rate FiO2 03/21/21 11:49 20 96 Room Air 03/21/21 11:33 98.5 03/21/21 11:15 90 109/61 (77) Laboratory Data Labs 24H Laboratory Tests 2 03/21/21 10:27: Immature Granulocyte % (Auto) 1.0, Neutrophils (%) (Auto) 83.8H, Lymphocytes (%) (Auto) 8.8L, Monocytes (%) (Auto) 4.9, Eosinophils (%) (Auto) 1.2, Basophils (%) (Auto) 0.3, Neutrophils # (Auto) 15.7H, Lymphocytes # (Auto) 1.7, Monocytes # (Auto) 0.9H, Eosinophils # (Auto) 0.2, Basophils # (Auto) 0.1, Nucleated Red Blood Cells % (auto) 0.0, Lactic Acid Level 1.5, Magnesium Level 2.5H, Total Bilirubin 0.4, Direct Bilirubin 0.1, Aspartate Amino Transf (AST/SGOT) 14, Alanine Aminotransferase (ALT/SGPT) 12, Alkaline Phosphatase 130H, Total Protein 6.6, Albumin 2.4L, Albumin/Globulin Ratio 0.6L, Amylase Level 11L, Lipase 50L 03/21/21 10:40: POC Glucose (Misc Panel) 115H, POC Sodium (Misc Panel) 131L, POC Potassium (Misc Panel) 3.2L, POC Chloride (Misc Panel) 98, POC Total CO2 (Misc Panel) 22.0L, POC Blood Urea Nitrogen (Misc Panel 22, POC Ionized Calcium (Misc Panel) 4.6, POC Creatinine (Misc Panel) 0.8, POC Hematocrit (Misc Panel) 32.0L 03/21/21 10:47: Prothrombin Time 15.3H, Prothromb Time International Ratio 1.17, Activated Partial Thromboplast Time 37.5, Coronavirus (COVID-19)(PCR) NEGATIVE, Influenza Type A (RT-PCR) NEGATIVE, Influenza Type B (RT-PCR) NEGATIVE, Respiratory Syncytial Virus (PCR) NEGATIVE CBC/BMP Laboratory Tests 03/21/21 10:27 Microbiology Microbiology 03/21/21 Gram Stain, Received Pending 03/21/21 Wound Culture, Received Pending 03/21/21 Blood Culture, Received Pending 03/21/21 Blood Culture, Received Pending Home Medications Scheduled Aspirin (Aspirin) 81 Mg Tab.chew, 81 MG PO QHS Atorvastatin Calcium (Atorvastatin Calcium) 10 Mg Tablet, 10 MG PO QHS Duloxetine Hcl (Duloxetine HCl) 30 Mg Capsule.dr, 30 MG PO QHS Ergocalciferol (Vitamin D2) (Vitamin D2) 50,000 Units Cap, 50,000 UNITS PO QWEEK Monday Lisinopril (Lisinopril) 5 Mg Tablet, 5 MG PO QHS Methotrexate Sodium (Methotrexate) 2.5 Mg Tablet, 20 MG PO QWEEK FRIDAYS: 10MG QAM, 10MG QHS Tizanidine HCl (Tizanidine HCl) 2 Mg Tablet, 2 MG PO TID Trazodone HCl (Trazodone HCl) 100 Mg Tablet, 100 MG PO QHS buprenorphine HCL (buprenorphine HCL) 150 Mcg Film, 150 MCG BC BID Scheduled PRN Ipratropium/Albuterol Sulfate (Combivent Respimat 20-100 Mcg) 4 Gm Mist.inhal, 1 PUFF INH QID PRN for SHORTNESS OF BREATH Oxycodone HCl (Oxycodone HCl) 5 Mg Tablet, 5 MG PO BID PRN for SEVERE PAIN (PS 8-10) Tramadol HCl (Tramadol HCl) 50 Mg Tablet, 100 MG PO TID PRN for MODERATE PAIN (PS 5-7) Allergies Coded Allergies: Penicillins (Verified Allergy, Severe, dyspnea, 09/10/19) celecoxib (Verified Allergy, Unknown, hives, 05/25/20) penicillin V (Verified Allergy, Unknown, 09/10/19) naproxen (Verified Adverse Reaction, Intermediate, UPSET STOMACH, VOMITING, 02/12/21) A-FIB/CHADSVASC A-FIB History Current/History of A-Fib/PAF?: No ARIA HIGUERA MD Mar 21, 2021 12:38
[2021-03-21] MEDS ORDERED: traMADol 50 MG TAB PO PRN (13:05)
[2021-03-21] MEDS ORDERED: propofoL 200 MG/20 ML VIAL IV.PROC PRN (13:35)
[2021-03-21] MEDS ORDERED: NS 1,000 ML IV SCH (13:35)
[2021-03-21 13:43] LABS: FERRITIN 509 NG/ML (8-252); IRON (FE) 15 UG/DL (50-170); NT-PRO BNP 198 PG/ML (<125); TOTAL IRON BINDING CAPACITY 214 UG/DL (250-450); TROPONIN I < 0.02 NG/ML (< 0.10)
[2021-03-21] MEDS: fentaNYL 100 MCG/2 ML INJECTION (J3010) IV PRN ×4 (13:45→16:02)
[2021-03-21] MEDS ORDERED: MIDAZOLAM INJ 2MG/2ML VIAL (J2250 PER 1MG) As Ordered ONE (14:06)
[2021-03-21] MEDS ORDERED: fentaNYL 100 MCG/2 ML INJECTION (J3010) As Ordered ONE ×3 (14:06→17:34)
[2021-03-21] MEDS ORDERED: LIDOCAINE 2% 100MG/5ML SDV (FOR ANES.) As Ordered ONE (14:08)
[2021-03-21] MEDS ORDERED: propofoL 200 MG/20 ML VIAL As Ordered ONE (14:16)
[2021-03-21] MEDS ORDERED: METOCLOPRAMIDE INJ 10MG/2ML VIAL (J2765 PER 1) As Ordered ONE (14:17)
[2021-03-21] MEDS ORDERED: ONDANSETRON 4MG/2ML VIAL As Ordered ONE (14:17)
[2021-03-21] MEDS ORDERED: ONDANSETRON 4MG/2ML VIAL IV PRN (15:55)
[2021-03-21] MEDS ORDERED: LR 1,000 ML IV SCH (15:55)
[2021-03-21] MEDS: PERCOCET 5MG/325MG TAB PO PRN ×2 (16:01→16:42)
[2021-03-21 17:03] VITALS: BP 104/56
--- NOTE | 2021-03-21 17:29 | ECGEPIP ---
[facility] - ED Test Date: 2021-03-21 Pat Name: HORTENCIA MINER Department: Room: - Gender: Female Inspector Rag Sorting: PALMIRA : 1965 Requested By: Yoselyn Soto Order Number: [id number] Reading MD: Isael Chaney Measurements Intervals [place] Rate: 97 P: 46 NC: 132 QRS: 15 QRSD: 96 T: 9 QT: 366 QTc: 464 Interpretive Statements Normal sinus rhythm Baseline artifact Comparison tracing not on file Electronically Signed on 03-21-2021 17:29:17 EDT by Isael Chaney
[2021-03-21 17:30] VITALS: BP 102/54
[2021-03-21] MEDS ORDERED: ACETAMINOPHEN 1000MG 100ML IV BTL (OFIRMEV) (J0131 PER 10MG) As Ordered ONE (17:34)
[2021-03-21] MEDS ORDERED: SLF 3 ML SYR IV PRN (17:55)
[2021-03-21] MEDS: MEROPENEM INJ 1 GM in IV 1 EA IV SCH (18:41)
[2021-03-21 20:00] VITALS: BP 107/58
[2021-03-21] MEDS: DULoxetine 30MG CAPSULE (CYMBALTA) PO SCH (20:35)
[2021-03-21] MEDS: lisinopriL 5 MG TAB PO SCH (20:35)
[2021-03-21] MEDS: CLINDAMYCIN 600 MG in IV 1 EA IV SCH (20:35)
[2021-03-21] MEDS: traZODone 100 MG TAB PO SCH (20:36)
[2021-03-21] MEDS: ATORVASTATIN 10 MG TAB PO SCH (20:36)
[2021-03-21] MEDS: oxyCODONE 5MG TAB PO PRN (20:46)
[2021-03-21 21:00] VITALS: BP 105/58
[2021-03-21] MEDS: VANCOMYCIN HCL 1,000 MG, VIAL MATE ADAPTER 1 EACH in NS 250 ML IV SCH (21:41)
[2021-03-21 22:00] VITALS: BP 102/56
[2021-03-21] MEDS: SLF 3 ML SYR IV SCH (22:00)
[2021-03-21 23:00] VITALS: BP 104/58
[2021-03-22] VITALS (10 sets, daily range): BP systolic 96–112; BP diastolic 51–58
[2021-03-22] MEDS: MEROPENEM INJ 1 GM in IV 1 EA IV SCH ×3 (00:27→16:58)
[2021-03-22] MEDS: ACETAMINOPHEN TAB 650MG DOSE (2X325MG) PO PRN ×2 (01:12→16:58)
[2021-03-22] MEDS: CLINDAMYCIN 600 MG in IV 1 EA IV SCH ×2 (03:10→13:01)
[2021-03-22] MEDS: VANCOMYCIN HCL 1,000 MG, VIAL MATE ADAPTER 1 EACH in NS 250 ML IV SCH ×3 (04:39→21:22)
[2021-03-22] MEDS: SLF 3 ML SYR IV SCH ×3 (04:40→21:22)
[2021-03-22] MEDS: oxyCODONE 5MG TAB PO PRN (09:58)
[2021-03-22 10:33] LABS: BASO % 0.3 % (0.0-1.0); EOS # 0.3 10^3/uL (0.0-0.5); EOS % 2.2 % (0.0-3.0); HEMATOCRIT 24.6 % (36.0-47.0); HEMOGLOBIN 7.8 g/dl (12.0-15.5); LYMPH # 1.8 10^3/uL (1.5-5.0); LYMPH % 13.8 % (24.0-44.0); MEAN CORPUSCULAR HEMOGLOBIN 29.4 pg (27.0-33.0); MEAN CORPUSCULAR HGB CONC 31.7 g/dl (32.0-36.5); MEAN CORPUSCULAR VOLUME 92.8 fl (80.0-96.0); MONO # 0.8 10^3/uL (0.0-0.8); MONO % 5.9 % (2.0-8.0); NEUTROPHILS # 10.2 10^3/uL (1.5-8.5); NEUTROPHILS % 76.8 % (36.0-66.0); PLATELET COUNT, AUTOMATED 402 10^3/uL (150-450); RED BLOOD COUNT 2.65 10^6/uL (4.00-5.40); WHITE BLOOD COUNT 13.3 10^3/uL (4.0-10.0)
[2021-03-22 11:36] LABS: BLOOD UREA NITROGEN 14 MG/DL (7-18); CALCIUM LEVEL 7.9 MG/DL (8.5-10.1); CARBON DIOXIDE LEVEL 23 MEQ/L (21-32); CHLORIDE LEVEL 109 MEQ/L (98-107); CREATININE FOR GFR 0.62 MG/DL (0.55-1.30); GLOMERULAR FILTRATION RATE > 60.0 (>51); GLUCOSE, FASTING 106 MG/DL (70-100); POTASSIUM SERUM 3.9 MEQ/L (3.5-5.1); SODIUM LEVEL 138 MEQ/L (136-145)
[2021-03-22 11:41] LABS: VITAMIN B12 LEVEL 257 PG/ML
[2021-03-22 11:43] LABS: FOLATE 6.9 NG/ML
[2021-03-22] MEDS ORDERED: MORPHINE 4 MG/ML 1ML VIAL/SYRINGE (J2270) IV ONE (18:00)
--- NOTE | 2021-03-22 19:30 | IPNPDOC ---
Date Seen The patient was seen on 03/22/21. Progress Note SUBJECTIVE: Honey was seen and examined at bedside today by the hospitalist service. She reports some moderate tenderness and associated discomfort around the area of her left medial lower extremity that was excised and debrided yesterday. She denies any current or overnight fever, chills, night sweats, chest pain, palpitations, dyspnea, abdominal pain/nausea/vomiting/blood in stool. She has had no bowel movement since yesterday's procedure but has been able to void a couple of times using the bedside commode. At the time of our exam she just been seen on follow-up by general surgery (Dr. Pool) who performed her debridement yesterday. OBJECTIVE PHYSICAL EXAMINATION: VITAL SIGNS: Please see below. GENERAL: female in moderate discomfort lying upright in bed. HEENT: Normocephalic, atraumatic. Noninjected, anicteric sclera. Mild conjunctival pallor. Wearing upper dentures. CARDIOVASCULAR: Borderline tachycardic rate, regular rhythm. Normal S1, S2. No murmurs appreciated RESPIRATORY: There are left lower lung lobe inspiratory crackles (moderate) and very faint right lower lobe rhonchi. No significant wheezing. On 2 L nasal cannula. No accessory muscle use. Symmetric chest expansion. ABDOMINAL: There is moderate tenderness of the right upper quadrant and left lower quadrant with no distention. Abdomen is soft and obese. Hypoactive bowel sounds throughout. No guarding or rigidity appreciated. EXTREMITIES: There is a roughly 7 inch x 6 inch x 3 inch triangular wedge section wound on the left proximal medial thigh. There is no active bleeding or odor emanating from the wound. Healthy tissue appreciated on visualization with no eschar. There is warmth to the left thigh as compared to the right thigh and some moderate erythema that extends distally to just superior to the patella that appears improved from yesterday's exam. There is no pitting edema bilaterally. NEUROLOGICAL: No gross focal neurologic deficits appreciated. Nondysarthric speech. LABORATORY DATA, IMAGING STUDIES, MICROBIOLOGY: Please see below. CXR 03/21/2021 IMPRESSION: 1. Emphysema. 2. Cardiomegaly. 3. No evidence of acute cardiopulmonary pathology. No significant change Venous duplex LLE (03/21/21): IMPRESSION: No evidence of deep venous thrombosis of the left lower extremity US L thigh (03/21/21): FINDINGS: The area of redness swelling and drainage in the left posteromedial aspect of the left thigh, proximally, demonstrates a complex fluid collection containing air bubbles measuring 3.1 x 1.6 x 1.0 cm. No fistula tract was demonstrated. IMPRESSION: Complex fluid collection containing air in the left thigh as described. No fistula is demonstrated. ASSESSMENT AND PLAN: 55-year-old female, with a past medical history of rheumatoid arthritis presently methotrexate, COPD not O2 dependent, OA of the right hip,, hyperlipidemia, sciatica of the right leg. Presented with a left thigh abscess for the past 4 days and is postop day #1 from excision and debridement. Patient may require IR drainage if unsuccessful. Presently on empiric vancomycin. Admitted to hospitalist service for the management of left thigh abscess with surrounding cellulitis. Patient also found to have incidental pericardial effusion on CT scan from October 2020 with repeat echo ordered. . PLAN: #L thigh abscess/necrotizing fasciitis -Patient remains afebrile and her white count actually decreased today to 13,000 from 18,000 yesterday. -Patient is on day #2 of clindamycin IV, meropenem, and vancomycin IV. -Spoke with patient's surgeon Dr. Pool today who reports yesterday's surgery included excision and removal of tissue up into the saphenous vein through the submucosa to the fascial layer but not into the muscle layer. There was significant air trapping appreciated during the surgery and subcutaneous tissue. Per Dr. Pool, patient can eat as tolerated and ambulate as well. -Current plan from general surgery/Dr. Pool is to continue with dressing changes for couple of days and then transfer over to a wound VAC. Plan is for patient to likely stay for the next week. -Infectious disease has been consulted and we sincerely appreciate their involvement and further recommendations. -Blood cultures x2 remain pending; wound cultures from left thigh showed moderate gram-negative rods and gram-positive cocci in pairs; anaerobic wound culture is still pending. -Morphine has been added on for pain in addition to the Tylenol started yesterday. #Left lower extremity cellulitis -On visual inspection, this appears improved from yesterday's exam; there continues to be warmth and erythema but less prominent versus yesterday. -As stated above, is on day 2 of all 3 antibiotics with infectious disease consulted. Patient's white count did decrease today to 13,000 from 18,000. -2 blood cultures are pending -Please see above for left thigh wound cultures #Normocytic hypochromic anemia -Hemoglobin 7.8 this morning (was 8.5 yesterday). Baseline hemoglobin approximately 12.5. Iron panel and fecal occult blood testing have been ordered. -No active signs of bleeding on exam today but did undergo surgery yesterday. -Patient was typed and screened in 1 unit of red blood cells was ordered to be transfused. -Follow-up on CBC tomorrow status post transfusion COPD in the setting of active smoker - Not O2 dependent at home; saturating on 2 L at 95% today -Home inhalers continued -O2 orders were switched today postsurgically to 90% or greater SPO2 - active smoking - was referred to pulm by PCP, has not yet followed up Pericardial effusion - incident finding on CT in 10/2020 - denies SOB, palpitations, edema - normotensive -2D echo was ordered with results/impression pending in order to r/o increase in size, tamponade RA - presently on methotrexate. Takes folate - follows with Dr. Rosenbaum at [facility] Rheumatology - has good follow up R Hip OA - pending R hip replacement. - due to incidental pericardial effusion, was pending workup by pulm and cardio DVT ppx: mechanical ppx due to anemia. Dispo: Likely will be here for the majority of the week getting dressing changes for left lower extremity wound and eventually switching to a wound VAC. VS, I&O, 24H, Fishbone Vital Signs/I&O Vital Signs Date Time Temp Pulse Resp B/P (MAP) Pulse Ox O2 Delivery O2 Flow Rate FiO2 03/22/21 18:50 20 03/22/21 17:01 98.2 82 108/52 92 Room Air 03/22/21 16:00 2.0 03/21/21 17:30 96 I&O- Last 24 Hours up to 6 AM 03/22/21 06:00 Intake Total 3730 ml Output Total 1050 ml Balance 2680 ml Laboratory Data 24H LABS Laboratory Tests 2 03/22/21 10:03: Immature Granulocyte % (Auto) 1.0, Neutrophils (%) (Auto) 76.8H, Lymphocytes (%) (Auto) 13.8L, Monocytes (%) (Auto) 5.9, Eosinophils (%) (Auto) 2.2, Basophils (%) (Auto) 0.3, Neutrophils # (Auto) 10.2H, Lymphocytes # (Auto) 1.8, Monocytes # (Auto) 0.8, Eosinophils # (Auto) 0.3, Basophils # (Auto) 0.0, Nucleated Red Blood Cells % (auto) 0.0 03/22/21 10:05: Anion Gap 6L, Glomerular Filtration Rate > 60.0, Calcium Level 7.9L 03/22/21 11:57: Vancomycin Level Trough 17.1 CBC/BMP Laboratory Tests 03/22/21 10:03 03/22/21 10:05 Microbiology Microbiology 03/21/21 Gram Stain - Final, Resulted 03/21/21 Wound Culture, Resulted Pending 03/21/21 Anaerobic Culture, Resulted Pending 03/21/21 Gram Stain - Final, Resulted 03/21/21 Wound Culture, Resulted Pending 03/21/21 Blood Culture - Preliminary, Resulted No growth after 24 hours . All specim... 03/21/21 Blood Culture - Preliminary, Resulted No growth after 24 hours . All specim... GME ATTESTATION GME ATTESTATION My faculty preceptor for this patient encounter was physically present during the encounter and was fully available. All aspects of the patient interview, examination, medical decision making process, and medical care plan development were reviewed and approved by the faculty preceptor. The faculty preceptor is aware and concurs with the plan as stated in the body of this note and will atte st to such by his/her cosignature. ATTENDING NOTE I, Aria Tamez MD, have independently examined this patient and performed my own physical exam, as well as reviewed the documentation and edited where necessary. I have discussed in detail with the resident the findings and plan of treatment as documented by the resident and edited their note. I agree with their findings and treatment plan and have edited their documentation. I will continue to follow the patient during this hospital stay. BRANDY PARMAR D.O. Mar 22, 2021 19:30 ARIA TAMEZ MD Apr 06, 2021 08:00
[2021-03-22] MEDS: traZODone 100 MG TAB PO SCH (21:21)
[2021-03-22] MEDS: lisinopriL 5 MG TAB PO SCH (21:22)
[2021-03-22] MEDS: ATORVASTATIN 10 MG TAB PO SCH (21:22)
[2021-03-22] MEDS: DULoxetine 30MG CAPSULE (CYMBALTA) PO SCH (21:22)
[2021-03-22] MEDS: MORPHINE 2 MG/ML 1ML VIAL (J2270) IV PRN (23:00)
[2021-03-23] VITALS: BP 112/53
[2021-03-23] MEDS: oxyCODONE 5MG TAB PO PRN ×3 (02:06→17:48)
[2021-03-23 04:00] VITALS: BP 135/67
[2021-03-23] MEDS: ACETAMINOPHEN TAB 650MG DOSE (2X325MG) PO PRN ×3 (05:10→20:17)
[2021-03-23] MEDS: VANCOMYCIN HCL 1,000 MG, VIAL MATE ADAPTER 1 EACH in NS 250 ML IV SCH ×3 (05:10→20:16)
[2021-03-23] MEDS: SLF 3 ML SYR IV SCH ×3 (05:11→20:18)
[2021-03-23 06:28] LABS: HEMATOCRIT 26.7 % (36.0-47.0); HEMOGLOBIN 8.7 g/dl (12.0-15.5); MEAN CORPUSCULAR HEMOGLOBIN 29.5 pg (27.0-33.0); MEAN CORPUSCULAR HGB CONC 32.6 g/dl (32.0-36.5); MEAN CORPUSCULAR VOLUME 90.5 fl (80.0-96.0); PLATELET COUNT, AUTOMATED 419 10^3/uL (150-450); RED BLOOD COUNT 2.95 10^6/uL (4.00-5.40); WHITE BLOOD COUNT 13.8 10^3/uL (4.0-10.0)
[2021-03-23 06:50] LABS: ALBUMIN 1.7 GM/DL (3.2-5.2); ALT/SGPT 11 U/L (12-78); BILIRUBIN,TOTAL 0.3 MG/DL (0.2-1.0); BLOOD UREA NITROGEN 10 MG/DL (7-18); CALCIUM LEVEL 7.9 MG/DL (8.5-10.1); CARBON DIOXIDE LEVEL 22 MEQ/L (21-32); CHLORIDE LEVEL 109 MEQ/L (98-107); CREATININE FOR GFR 0.43 MG/DL (0.55-1.30); GLOMERULAR FILTRATION RATE > 60.0 (>51); GLUCOSE, FASTING 108 MG/DL (70-100); MAGNESIUM LEVEL 1.9 MG/DL (1.8-2.4); POTASSIUM SERUM 3.6 MEQ/L (3.5-5.1); SODIUM LEVEL 139 MEQ/L (136-145); TOTAL PROTEIN 5.4 GM/DL (6.4-8.2)
[2021-03-23 07:07] LABS: ATYPICAL LYMPH 3 % (0-5); EOSINOPHILS 2 % (0-3); LYMPHOCYTES 28 % (16-44); MONOCYTES 9 % (0-5); NEUTROPHILS 58 % (28-66)
[2021-03-23 07:09] LABS: ANISOCYTOSIS 1+; PLATELET ESTIMATE NORMAL (NORMAL); POLYCHROMASIA 1+
[2021-03-23 07:37] VITALS: BP 124/59
--- NOTE | 2021-03-23 08:08 | RO ---
OPERATIVE NOTE DATE OF OPERATION: 03/21/2021 PREOPERATIVE DIAGNOSIS: Abscess/necrotizing fasciitis left upper thigh. POSTOPERATIVE DIAGNOSIS: Abscess/necrotizing fasciitis left upper thigh. PROCEDURE: Extensive debridement, excision of skin and subcutaneous tissue down to fascia left upper thigh. SURGEON: Enoch Pool Jr, MD RECEIVING LEAD: ANESTHESIA: General endotracheal anesthesia. EBL: Minimal. FLUIDS: Crystalloid. DESCRIPTION OF PROCEDURE: The patient was brought to the operating room, had undergone attempted incision and drainage of the left upper thigh abscess and I did unroof the area but there was extensive necrosis of the tissues, thus discussed operative intervention for debridement of this area given that it appeared that it was starting to be necrotic tissue underlying this with spread throughout the subcutaneous fat and deep subcutaneous tissue. Thus, an incision was made on the abscess area/necrotizing fasciitis area and I started out debriding back the firm area but it was obvious there were some areas where this extended into other pockets and extended out further; thus I needed to extend this skin incision to debride out these pockets. Once extensive debridement was performed this extended all the way down to the saphenous vein. However, I was able to preserve the saphenous vein and it did not extend into the fascia itself. I irrigated the area quite copiously with pulse lavage and then cautery was used to provide hemostasis. Once I was able to provide some hemostasis a dry, sterile dressing was applied. The patient was awakened, extubated, brought to the recovery room awake, alert and hemodynamically stable. Plan was for dressing changes over the next few days and as this starts to clear up and the infection is resolving, then to plan to place wound VAC. However, obviously if this has progression of disease may need re-excision/further debridement but at this point seems nice and clean and all areas seem to be debrided adequately.
--- NOTE | 2021-03-23 08:15 | RO ---
OPERATIVE NOTE DATE OF OPERATION: 03/21/2021 PREOPERATIVE DIAGNOSIS: Abscess, left thigh. POSTOPERATIVE DIAGNOSIS: Abscess, question necrotizing fasciitis. PROCEDURE: Incision and drainage of left thigh abscess. SURGEON: Enoch Pool Jr, MD INSULATOR TESTER: ANESTHESIA: Local. EBL: Minimal. DESCRIPTION OF PROCEDURE: The patient was in the emergency room. I was asked to see the patient about this left thigh abscess and prepped and draped the area and infiltrated with local. After making a skin incision there was air in the subcutaneous tissue with necrotic tissue throughout. I did remove a flap of skin and opened this up but in all of the area there was not a nicely defined abscess that was easily drainage, it seemed to work its way into the surrounding tissue, likely developing or currently necrotizing fasciitis. Thus the recommendation to the patient was to bring her to the operating room for further debridement and excision of this tissue. Dry, sterile dressing was applied. The patient was taken to the operating room later that day.
[2021-03-23] MEDS: MEROPENEM INJ 1 GM in IV 1 EA IV SCH ×4 (08:18→15:48)
[2021-03-23] MEDS ORDERED: FLUBLOK(EGG FREE)(QUAD)INFLUENZA VACC 0.5ML SYRINGE 18YRS & OLDER IM ONE (09:00)
--- NOTE | 2021-03-23 10:12 | CR ---
CONSULTATION DATE: 03/22/2021 REASON FOR CONSULTATION: Asked to consult by hospitalist for evaluation of left thigh abscess and concern for a necrotizing fasciitis. HISTORY OF PRESENT ILLNESS: Honey Mak is a 55-year-old female with a history of rheumatoid arthritis on methotrexate, who presented to the emergency room with a five day history of worsening left eye pain with cellulitis. The patient stated she had a pustule that she tried to squeeze earlier this week and then developed worsening erythema all the way down to the knee. The patient applied warm soaks without any improvement. She came to the emergency room with worsening pain and purulent discharge. The patient had no fever. She had a white count of 18.7 on admission, hemoglobin of 8.5, lactic acid was normal at 1.5. The patient had an ultrasound which showed an abscess. Dr. Pool took her to the operating room for a concern of necrotizing fasciitis. The fascia was not involved. Blood cultures were drawn and were negative so far and wound cultures are pending. PAST MEDICAL HISTORY: Significant for rheumatoid arthritis for which she takes methotrexate weekly. She has not been on prednisone since June that she takes as needed, chronic obstructive pulmonary disease (COPD), not oxygen dependent, hypertension, osteoarthritis of the right hip, hyperlipidemia, sciatica, tobacco abuse. PAST SURGICAL HISTORY: Cholecystectomy, bowel perforation. SOCIAL HISTORY: Active smoker one pack a day, denies alcohol or drug use. FAMILY HISTORY: Father of lung cancer, renal cancer and mother had heart disease. ALLERGIES: PENICILLIN, CELEBREX, NAPROSYN MEDICATIONS: Vancomycin 1 gm IV every 8 hours, meropenem 1 gm IV q 8 hours, clindamycin 600 mg IV q 8 hours, atorvastatin 10 mg by mouth every night at bedtime, lisinopril 5 mg by mouth every night at bedtime, trazodone 100 mg every night at bedtime, duloxetine 60 mg by mouth daily, tramadol 100 mg by mouth three times a day as needed, morphine 2 mg IV q 4 hours as needed LABORATORY DATA: White count are 2.3, hemoglobin 7.8, hematocrit 24.6, platelets 402, 76% neutrophils, 13% lymphocytes, 5% monocytes. White count on 03/21 was 18.7. Sodium 138, k 3.9, chloride 109, bicarbonate 23, BUN 14, creatinine 0.62, glucose 106, lactic acid 1.5, calcium 7.9, magnesium 2.5, iron 15, TIBC 214, iron saturation 7%, ferritin 509. Bilirubin 0.4, AST 14, ALT 12, alkaline phosphatase 130, albumin 2.4. Blood cultures two sets are no growth after 24 hours. Gram-stain had moderate gram-negative rods and moderate gram-positive cocci in pairs. Another Gram-stain also had many gram-positive cocci in pairs and cluster. Anaerobic cultures are pending. Vascular ultrasound sound no deep venous thrombosis (DVT). Extremity ultrasound showed at abscess with complex fluid air bubbles 3.1 x 1.6 x 1 cm. No fistula. Chest x-ray with no acute infiltrates. PHYSICAL EXAMINATION: Temperature is 98.1, pulse 90, respirations 16, blood pressure 107/51, O2 saturation 96% on room air. Heart: Normal S1, S2, no murmurs, rubs or gallops. Lungs are clear. No wheezes, rales or rhonchi. Abdomen: Soft, nontender. No hepatosplenomegaly. Obese. Back: No severe lumbosacral tenderness. Extremities: Left thigh medial erythema extending all the way to the knee. A large area of I and D in the left groin with serosanguinous discharge on the dressing. The incision done by Dr. Pool is over 20 cm from the left vulva to the vaginal area. IMPRESSION: This is a 55-year-old female who is admitted with left thigh cellulitis with an abscess, status post incision and drainage (I&D). There was concern of necrotizing fasciitis, but intraoperatively there was no extension into the fascia. Culture seems to be polymicrobial probably with some gram-negative streptococcus and anaerobes. The patient is appropriately treated with IV vancomycin and meropenem. She has a history of methicillin-resistant Staphylococcus aureus (MRSA) in the past, abscess of her cheek. I do not see a need for clindamycin. She is now septic and did not have necrotizing fasciitis and does not have hypertension. PLAN: Discontinue IV clindamycin to decrease the risk of Clostridium difficile. Continue with IV vancomycin and meropenem that should cover all pathogens. The patient will continue with wet-to-dry dressing followed by wound VAC per Dr. Pool. Please order IV morphine. The patient is in a lot of pain and had asked me for extra pain medication. The case has been discussed with Dr. Tamez, as well as Dr. Pool.
[2021-03-23 11:27] VITALS: BP 113/57
--- NOTE | 2021-03-23 11:47 | IPNPDOC ---
Text Note Date of Service The patient was seen on 03/23/21. NOTE General surgery. Dr Pool The patient is a 55-year-old female with a left thigh abscess, status post I&D of abscess 03/21/2021, status post extensive debridement and excision of skin and subcutaneous tissue down to the fascia left upper thigh 03/21/[address] Pool. The patient reports the area is feeling less tender, there has been some decrease in erythema of the left thigh extending down to the knee, less warm to touch. Last dose of IV morphine last evening. Oxycodone at 2 AM. The patient is afebrile VSS Awake and alert resting in bed Left thigh dressing is removed, packing is intact, serosanguineous drainage noted, left thigh erythema extends to the medial aspect of the knee, but seems to have receded somewhat on the lateral aspect of the left thigh. Assessment/plan Left thigh abscess status post debridement. The patient is reviewed as per Dr Pool IV antibiotics as per hospitalist/infectious disease Continue with wound care, wet to dry dressing. Possibly consider wound VAC later this week. Continue to monitor VS,Fishbone, I+O VS, Fishbone, I+O Laboratory Tests 03/23/21 05:27 Vital Signs Date Time Temp Pulse Resp B/P (MAP) Pulse Ox O2 Delivery O2 Flow Rate FiO2 03/23/21 10:25 18 03/23/21 09:14 Room Air 03/23/21 07:37 96.5 86 124/59 (80) 95 03/23/21 02:06 2.0 96 I&O- Last 24 Hours up to 6 AM 03/23/21 05:59 Intake Total 2020 ml Output Total 1350 ml Balance 670 ml Isabella Rutherford Mar 23, 2021 11:47
[2021-03-23] MEDS: MORPHINE 2 MG/ML 1ML VIAL (J2270) IV PRN (12:10)
--- NOTE | 2021-03-23 14:09 | IPNPDOC ---
Date Seen The patient was seen on 03/23/21. Progress Note SUBJECTIVE: Honye was seen and examined this morning by the hospitalist service while lying upright in bed. She reports generalized pain is still an issue, but was not aware that all of her pain medications are as needed and not scheduled. She is eating and drinking without any issues. She has not had a bowel movement since operative incision and drainage on 03/21. She is voiding with a bedside commode and is ambulating with the assistance of nursing staff. She reports sneezing and coughing up some mucus during the overnight with a slight tinge of blood. No significant adverse events overnight were reported by nursing. Patient has been breathing room air and off of supplemental nasal cannula oxygen since 4 PM yesterday. She reports chronic chills that are her "baseline." She denies any current or overnight fever or night sweats. She also denies any current chest pain, palpit ations, dyspnea, abdominal pain/nausea/vomiting, dysuria, or hematuria. OBJECTIVE: PHYSICAL EXAMINATION: VITAL SIGNS: Please see below. GENERAL: Pleasant female lying upright in bed. NAD. Her discomfort appears to be slightly improved today versus yesterday. HEENT: Normocephalic, atraumatic. Noninjected, anicteric sclera. Mild conjunctival pallor. Oral cavity: MMM. Wearing upper dentures. CARDIOVASCULAR: Regular rate, regular rhythm. Normal S1, S2. Somewhat distant heart sounds with no significant appreciated murmurs. RESPIRATORY: There is some moderate wheezing in the right lung base with some crackles in the left lung base. Due to patient's weakness, auscultation occurr ed anteriorly and posteriorly. Breathing room air. No accessory muscle use. Symmetric chest expansion. ABDOMINAL: Abdomen is soft and obese. No distention and tenderness has improved greatly from yesterday. Positive bowel sounds. No guarding or rigidity appreciated. EXTREMITIES: Large triangular incision and drainage wound over proximal medial left thigh remains in place (about 7 inches x 6 inches x 3 inches). There is no active bleeding or odor emanating from the wound. Healthy tissue appreciated on visualization with no eschar. Left lower extremity is still somewhat warm compared to the right but this has decreased since yesterday. Also the area of erythema over the left lower extremity has become less intense today and request versus yesterday. There is no pitting edema bilaterally. Bilateral hallux valgus of feet. Small bump on right wrist consistent with ganglion cyst pallavi earance. NEUROLOGICAL: No gross focal neurologic deficits appreciated. Nondysarthric speech. LABORATORY DATA, IMAGING STUDIES, MICROBIOLOGY: Please see below. CXR 03/21/2021 IMPRESSION: 1. Emphysema. 2. Cardiomegaly. 3. No evidence of acute cardiopulmonary pathology. No significant change Venous duplex LLE (03/21/21): IMPRESSION: No evidence of deep venous thrombosis of the left lower extremity US L thigh (03/21/21): FINDINGS: The area of redness swelling and drainage in the left posteromedial aspect of the left thigh, proximally, demonstrates a complex fluid collection containing air bubbles measuring 3.1 x 1.6 x 1.0 cm. No fistula tract was demonstrated. IMPRESSION: Complex fluid collection containing air in the left thigh as described. No fistula is demonstrated. ASSESSMENT AND PLAN: 55-year-old female, with a past medical history of rheumatoid arthritis presently methotrexate, COPD not O2 dependent, OA of the right hip,, hyperlipidemia, sciatica of the right leg who presented to the ED with a left thigh pain for 5 days. Found to have abscess with imaging concerning for necrotizing fasciitis and underwent OR incision and drainage on 03/[address] Pool of general surgery. Wound cultures were obtained and patient was started on antibiotics. Admitted to hospitalist service for the management of left thigh abscess with surrounding cellulitis. Patient also found to have incidental pericardial effusion on CT scan from October 2020 with repeat echo ordered. #L thigh abscess/necrotizing fasciitis -Patient remains afebrile. White count remained at 13 today and is improved from initial presentation of 18. -Clindamycin was discontinued yesterday by infectious disease service to decreas e the risk of possible C. difficile. -Patient continues to be on both vancomycin (day #3) and meropenem (day #3). -Wound cultures from left thigh seem to be polymicrobial (showed moderate gram-negative rods and gram-positive cocci in pairs) -2 blood cultures have shown no growth after 48 hours. -Infectious disease service (Dr. Raymundo) has been consulted and hospitalist service greatly appreciates continued recommendations. -General surgery (Dr. Pool) also on consult and performed in 03/21 OR in cision and drainage. Per speaking with Dr. Pool, intraoperatively there was no extension of free air beyond the subcutaneous layer into the fascia. -Current plan from general surgery/Dr. Pool standpoint is to continue with wet-to-dry dressing changes with likely switch to a wound VAC later in the week. -IV as needed morphine was added yesterday for severe pain. Patient will continue with the IV morphine in addition to as needed Tylenol and oral oxycodone for moderate pain; oral tramadol prn was discontinued. Patient was not aware that these were prn, which was brought to her attention today. She now knows to ask for these if she needs them and we will assess how this current regimen does. #Left lower extremity cellulitis -On visual inspection, appears to be improved from yesterday; warmth and intensity of erythema have both decreased. -WBC again at 13 today. -Continuing with day #3 for both IV vancomycin and meropenem; clindamycin was discontinued by infectious disease yesterday. -2 blood cultures are pending -Please see above for left thigh wound cultures #Normocytic hypochromic anemia, improved -Hemoglobin 8.7 this morning after receiving 1 unit of PRBCs yesterday. -Drop in hemoglobin yesterday was thought to be secondary to recent operative incision and drainage. -Upon review, baseline hemoglobin approximately 12.5. -Iron panel showed decreased serum iron with decreased TIBC but elevated ferritin (ferritin may be elevated in the setting of the acute infection); fecal occult blood testing have been ordered. -Continues to show no signs of active bleeding. -Follow-up on repeat CBCs #COPD in the setting of active smoker - Not O2 dependent at home -She has been off of supplemental nasal cannula oxygen since 4 PM on 03/22, saturating this morning at 95% on room air. -Home inhalers were continued -O2 orders were switched postsurgically to 90% or greater SPO2 - active smoker - was referred to pulm by PCP, has not yet followed up -Due to decreased activity while in the hospital and lung findings on exam today, incentive spirometry was ordered. Patient was counseled on the importance of using the incentive spirometer. #Pericardial effusion - incident finding on CT in 10/2020 -Has remained normotensive and is denying any significant dyspnea, chest pain, or palpitations. -2D echo was ordered with results/impression pending in order to r/o increase in size/tamponade #RA - presently on methotrexate as outpatient. Takes folate - follows with Dr. Rosenbaum at [facility] Rheumatology - has good follow up #R Hip OA - pending R hip replacement. - due to incidental pericardial effusion, was pending workup by pulm and cardio -Pain medication as documented above. DVT ppx: mechanical ppx due to anemia. Dispo: Pending continued improvement of left lower extremity wound with plan for continued wet-to-dry dressing and switch to wound VAC later in the week. VS, I&O, 24H, Fishbone Vital Signs/I&O Vital Signs Date Time Temp Pulse Resp B/P (MAP) Pulse Ox O2 Delivery O2 Flow Rate FiO2 03/23/21 12:35 16 Room Air 03/23/21 11:27 98.1 73 113/57 (75) 95 03/23/21 02:06 2.0 96 I&O- Last 24 Hours up to 6 AM 03/23/21 06:00 Intake Total 2020 ml Output Total 1350 ml Balance 670 ml Laboratory Data 24H LABS Laboratory Tests 2 03/23/21 05:27: Neutrophils (%) (Auto) , Nucleated Red Blood Cells % (auto) 0.0, Neutrophils 58, Lymphocytes (Manual) 28, Monocytes (Manual) 9H, Eosinophils (Manual) 2, Atypical Lymphocytes 3, Polychromasia 1+, Anisocytosis 1+, Platelet Estimate NORMAL, Anion Gap 8, Glomerular Filtration Rate > 60.0, Calcium Level 7.9L, Magnesium Level 1.9, Total Bilirubin 0.3, Aspartate Amino Transf (AST/SGOT) 11, Alanine Aminotransferase (ALT/SGPT) 11L, Alkaline Phosphatase 109, Total Protein 5.4L, Albumin 1.7#L, Albumin/Globulin Ratio 0.5L CBC/BMP Laboratory Tests 03/23/21 05:27 Microbiology Microbiology 03/21/21 Gram Stain - Final, Resulted 03/21/21 Wound Culture, Resulted Pending 03/21/21 Anaerobic Culture, Resulted Pending 03/21/21 Gram Stain - Final, Resulted 03/21/21 Wound Culture, Resulted Pending 03/21/21 Blood Culture - Preliminary, Resulted No Growth after 48 hours. All Specime... 03/21/21 Blood Culture - Preliminary, Resulted No Growth after 48 hours. All Specime... GME ATTESTATION GME ATTESTATION My faculty preceptor for this patient encounter was physically present during the encounter and was fully available. All aspects of the patient interview, examination, medical decision making process, and medical care plan development were reviewed and approved by the faculty preceptor. The faculty preceptor is aware and concurs with the plan as stated in the body of this note and will attest to such by his/her cosignature. ATTENDING NOTE I, Perry Mcgarry, have independently examined this patient and performed my own physical exam, as well as reviewed the documentation and edited where necessary. I have discussed in detail with the resident / student the findings and plan of treatment as documented by the resident / student and edited their note. I agree with their findings and treatment plan and have edited their documentation. I will continue to follow the patient during this hospital stay. BRANDY PARMAR D.O. Mar 23, 2021 14:09 PERRY MCGARRY MD Mar 23, 2021 16:02
--- NOTE | 2021-03-23 14:12 | ECHO ---
ECHOCARDIOGRAM DATE OF PROCEDURE: 03/22/2021 Age: 55 Gender: Female Height: 63 inches Weight: 187 pounds Body Surface Area: 1.88 m2 PATIENT LOCATION: [facility], Room 3225 REFERRING PHYSICIAN: ARIA HIGUERA MD INDICATION: Pericardial effusion. MEASUREMENTS: 2D Measurements: RV 3.7 cm LV 5.3 cm Septum 1.0 cm Posterior wall 1.0 cm Aortic root 3.2 cm LA 3.5 cm LVEF 65% Doppler Measurements: AV 1.2 m/sec LVOT 1.04 m/sec LVOT diameter 2.1 cm MV-E 60, A 72, EA ratio 0.8 Early mitral deceleration time 278 msec E prime medial 8.5 A prime medial 12 E prime lateral 9.5 Average E/E prime ratio 6.7/PCWP 10.2 mmHg PV - 0.83 m/sec Pulmonary artery acceleration time 130 msec PASP 24 mmHg IVC 1.9 cm COMMENTS: Normal sinus rhythm without interventricular conduction disturbance. M-mode and 2 dimensional echocardiography was performed with pulse, continuous wave, color flow, and tissue Doppler studies. Normal left ventricular size, wall thickness and wall motion. Normal left atrial size with degree of LV diastolic dysfunction but currently normal estimated mean left atrial pressure. Normal right heart chamber sizes and wall motion and estimated pulmonary arterial pressure. Normal IVC size and collapse against an elevated central venous pressure. Normal aortic dimensions. Normal appearing and functioning aortic valve. Normal appearing and functioning mitral valve. Normal appearing and functioning tricuspid valve. No apparent intracardiac mass. Moderate size pericardial effusion measuring 2.2 cm at the base of the heart posteriorly but otherwise other segments measured 1.0 cm. There was a slight degree of right atrial free wall inversion but otherwise no sign of cardiac chamber compression. There was no significant fluctuation in Doppler flow signals to suggest cardiac compression. Normal IV size and collapse is also against cardiac tamponade.
[2021-03-23] MEDS: SENOKOT S TAB PO SCH ×2 (15:47→20:16)
[2021-03-23 16:00] VITALS: BP 127/60
--- NOTE | 2021-03-23 17:22 | IPN ---
PROGRESS NOTE DATE: 03/23/2021 Honey is sitting at the bedside. She is feeling better. She denies any nausea, vomiting, or diarrhea. She does complain of constipation. Has not had a bowel movement since admission. She did cough up some mucus with slight tinge of blood, but that has resolved. She had an episode of incontinence because she could not make it fast enough to the bathroom, and she was frustrated with that. She has had no fever. Temperature is 99.1, pulse 89, respirations 17, blood pressure 127/60, oxygen saturation 96% on room air. HEART: Normal S1, S2. No murmurs. LUNGS: Clear. No wheezes, rales, or rhonchi. ABDOMEN: Obese, soft, nontender. Left groin with open wound. Good granulation tissue. There is minimal purulent discharge at the corner laterally of the wound. Erythema at the medial thigh has markedly decreased. It is now only to the mid thigh. Prior to that it was down to the knee. IMPRESSION: 1. Complicated skin and soft tissue infection of the left thigh with abscess without evidence of necrotizing fasciitis intraoperatively. Culture has gram-negatives, anaerobes, and probably some staphylococcus. Further identification will need a couple more days. The patient continues on intravenous (IV) vancomycin and meropenem. Clindamycin was discontinued. 2. Constipation. The patient will be started on Senokot one tablet by mouth twice a day and was advised to use milk of magnesia as needed, which is also ordered. PLAN: Continue same antibiotics. De-escalation will depend on result of cultures.
[2021-03-23 19:56] VITALS: BP 122/74
[2021-03-23] MEDS: lisinopriL 5 MG TAB PO SCH (20:17)
[2021-03-23] MEDS: ATORVASTATIN 10 MG TAB PO SCH (20:17)
[2021-03-23] MEDS: DULoxetine 30MG CAPSULE (CYMBALTA) PO SCH (20:17)
[2021-03-23] MEDS: traZODone 100 MG TAB PO SCH (20:17)
[2021-03-23] MEDS: MAALOX 30 ML SUSP *UDC PO PRN (20:18)
[2021-03-23] MEDS: MOM 30ML SUSPENSION UDC PO PRN (20:18)
[2021-03-24] VITALS: BP 110/57
[2021-03-24] MEDS: MORPHINE 2 MG/ML 1ML VIAL (J2270) IV PRN ×4 (00:01→23:04)
[2021-03-24] MEDS: MEROPENEM INJ 1 GM in IV 1 EA IV SCH ×3 (00:01→17:09)
[2021-03-24] MEDS: ACETAMINOPHEN TAB 650MG DOSE (2X325MG) PO PRN ×4 (03:39→22:14)
[2021-03-24 04:00] VITALS: BP 139/65
[2021-03-24] MEDS: VANCOMYCIN HCL 1,000 MG, VIAL MATE ADAPTER 1 EACH in NS 250 ML IV SCH (04:05)
[2021-03-24] MEDS: SLF 3 ML SYR IV SCH ×3 (04:05→22:25)
[2021-03-24 05:54] LABS: HEMATOCRIT 26.6 % (36.0-47.0); HEMOGLOBIN 8.6 g/dl (12.0-15.5); MEAN CORPUSCULAR HGB CONC 32.3 g/dl (32.0-36.5); MEAN CORPUSCULAR VOLUME 89.6 fl (80.0-96.0); PLATELET COUNT, AUTOMATED 450 10^3/uL (150-450); RED BLOOD COUNT 2.97 10^6/uL (4.00-5.40); WHITE BLOOD COUNT 12.3 10^3/uL (4.0-10.0)
[2021-03-24 06:22] LABS: ALBUMIN 1.7 GM/DL (3.2-5.2); ALT/SGPT 10 U/L (12-78); BILIRUBIN,TOTAL 0.3 MG/DL (0.2-1.0); BLOOD UREA NITROGEN 7 MG/DL (7-18); CALCIUM LEVEL 8.1 MG/DL (8.5-10.1); CARBON DIOXIDE LEVEL 25 MEQ/L (21-32); CHLORIDE LEVEL 107 MEQ/L (98-107); CREATININE FOR GFR 0.49 MG/DL (0.55-1.30); GLOMERULAR FILTRATION RATE > 60.0 (>51); GLUCOSE, FASTING 122 MG/DL (70-100); MAGNESIUM LEVEL 1.9 MG/DL (1.8-2.4); POTASSIUM SERUM 3.5 MEQ/L (3.5-5.1); SODIUM LEVEL 141 MEQ/L (136-145); TOTAL PROTEIN 5.4 GM/DL (6.4-8.2)
[2021-03-24 06:36] LABS: BASOPHILS 1 % (0-1); EOSINOPHILS 2 % (0-3); LYMPHOCYTES 19 % (16-44); MONOCYTES 2 % (0-5); NEUTROPHILS 76 % (28-66)
[2021-03-24 06:37] LABS: PLATELET ESTIMATE NORMAL (NORMAL)
[2021-03-24 07:33] VITALS: BP 128/65
[2021-03-24] MEDS: SENOKOT S TAB PO SCH ×2 (08:02→21:00)
[2021-03-24 08:54] LABS: C REACTIVE PROTEIN QUANTITATIV 9.09 MG/DL (0.00-0.30)
--- NOTE | 2021-03-24 09:06 | IPNPDOC ---
Text Note Date of Service The patient was seen on 03/24/21. NOTE General surgery. Dr Pool The patient is a 55-year-old female with a left thigh abscess, status post I&D of abscess 03/21/2021, status post extensive debridement and excision of skin and subcutaneous tissue down to the fascia left upper thigh 03/21/[address] Pool. The patient reports the pain continues to improve, it has been less warm and tender to touch. The left lower extremity is appearing less red. The patient is afebrile T-max 99.7 VSS Awake and alert resting in bed Left thigh dressing is removed, packing is intact, serosanguineous drainage noted, left thigh erythema appears to be receding, there is less erythema noted around the inner aspect of the knee and receding on the thigh. Assessment/plan Left thigh abscess status post debridement. The patient is reviewed as per Dr Pool. Erythema around the wound and left thigh/left knee continues to improve. Continue IV antibiotics as per hospitalist/infectious disease Continue with wound care, wet to dry dressing. Consider wound VAC placement later this week. Continue to monitor VS,Fishbone, I+O VS, Fishbone, I+O Laboratory Tests 03/24/21 05:26 Vital Signs Date Time Temp Pulse Resp B/P (MAP) Pulse Ox O2 Delivery O2 Flow Rate FiO2 03/24/21 08:12 16 Room Air 03/24/21 07:33 97.0 91 128/65 (86) 93 03/24/21 04:04 2.0 96 I&O- Last 24 Hours up to 6 AM 03/24/21 05:59 Intake Total 1730 ml Output Total 1850 ml Balance -120 ml Isabella Rutherford Mar 24, 2021 09:06
--- NOTE | 2021-03-24 11:14 | IPNPDOC ---
Text Note Date of Service The patient was seen on 03/24/21. NOTE SUBJECTIVE: Ms. Guevara is a 55-year-old female who was seen this morning by the hospitalist service. She was lying upright while waiting for her left thigh dressing to be changed. She reports improved generalized pain with pain medications and knows now to ask for them when she needs them. Her appetite is improved. She was able to have a bowel movement overnight and describes loose stool after taking Senokot. She reports intermittent pressure/discomfort in her lower abdomen/ suprapubic region that started around 2AM; having a bowel movement did not alleviate the discomfort. There is noticeable swelling in her bilateral lower extremities, which the patient has also noticed since yesterday. She denies fever, chills, chest pain, SOB, nausea, vomiting, constipation, changes in urination, and pain in her extremities. OBJECTIVE: PHYSICAL EXAMINATION: VITAL SIGNS: Please see below. GENERAL: Patient is lying upright in bed, appears stated age and in no acute distress. HEENT: NC, AT. Sclera non-icteric. Mucus membranes moist. CARDIOVASCULAR: RRR. Normal S1, S2. No murmurs, gallops, or rubs heard. RESPIRATORY: Faint right basilar crackles heard on auscultation, improved from yesterday's exam. No wheezing heard bilaterally. Comfortably breathing room air. No accessory muscle use. ABDOMINAL: Soft, non-distended, non-tender abdomen. Positive bowel sounds. No guarding or rigidity appreciated. EXTREMITIES: 1+ pitting edema, worse on the left than on the right. Appropriate ROM in bilateral upper extremities and left lower extremity. Unable to raise RLE due to right hip OA and pending hip replacement. Bilateral hallux valgus of feet. Small bump on right wrist consistent with ganglion cyst appearance. SKIN: Large triangular incision and drainage wound over proximal medial left thigh remains in place (about 7 inches x 6 inches x 3 inches). There is no activ e bleeding, drainage, or odor emanating from the wound. Healthy tissue appreciated on visualization with no eschar. Left lower extremity slightly warm to touch, but significantly improved over previous exams. Area of erythema over the left lower extremity has regressed over the past 24 hours. NEUROLOGICAL: No gross focal neurologic deficits appreciated. Nondysarthric speech. IMAGIN03/21/2021 Chest X-ray Impression: "1. Emphysema. 2. Cardiomegaly. 3. No evidence of acute cardiopulmonary pathology. No significant change." 03/21/2021 Left Lower Extremity Vascular US Impression: "No evidence of deep venous thrombosis of the left lower extremity." 03/21/2021 Left Lower Extremity US: FINDINGS: "The area of redness swelling and drainage in the left posteromedial aspect of the left thigh, proximally, demonstrates a complex fluid collection containing air bubbles measuring 3.1 x 1.6 x 1.0 cm. No fistula tract was demonstrated." IMPRESSION: "Complex fluid collection containing air in the left thigh as described. No fistula is demonstrated." MICROBIOLOGY: 03/21/2021 Left Thigh Final Wound Culture: STAPHYLOCOCCUS SP COAG NEG 03/21/2021 Left Thigh Anaerobic Culture: PENDING 03/21/2021 Left Thigh Preliminary Would Culture: PSEUDOMONAS AERUGINOSA, CORYNEBACTERIUM SPECIES ASSESSMENT/PLAN: Ms. Guevara is a 55-year-old female with a h/o RA, COPD (not O2 dependent), OA of right hip, hyperlipidemia, and sciatica of the right right who presents with left thigh abscess and surrounding cellulitis as well as new onset BLE pitting edema. # Left thigh abscess - Patient is s/p I&D on 03/21/2021. - WBC at 12.3 and improved from yesterday; has been downtrending since admission. - Left thigh wound cultures found Staph species coag negative, pseudomonas aeruginosa, and corynebacterium species; anaerobic culture pending. - Continue vancomycin (day #4) and meropenem (day #4); will reassess antibiotic therapy when anaerobic culture is final. - Infectious disease consulted and hospitalist service greatly appreciates continued recommendations. - Per general surgery, no evidence of necrotizing fasciitis intraoperatively. Will continue wet-to-dry dressing changes with likely switch to wound VAC later in the week. Hospitalist service greatly appreciates continued recommendations. - Patient states improved pain control; will continue acetaminophen, tramadol, and IV morphine as needed. # Left lower extremity cellulitis, improving - On visual inspection, improved from yesterday; warmth and intensity of erythema have both decreased. - WBC improved at 12.3. - Left thigh wound cultures found Staph species coag negative, pseudomonas aeruginosa, and corynebacterium species; anaerobic culture pending. - Continuing day #4 of IV vancomycin and meropenem. # BLE pitting edema - 1+ pitting edema present on examination; worse on the left than on the right. Pitting edema higher on the left than on the right. - Patient is receiving IV antibiotics. She does not appear fluid overloaded and lungs sounds have improved from yesterday. - Patient appears hemodynamically stable; will continue to monitor vitals. - No known history of CHF. # Intermittent lower abdominal/suprapubic discomfort - Unrelieved with bowel movement; patient denies dysuria, pyuria, hematuria - Bladder scan ordered for possible retention. # Normocytic hypochromic anemia, improving - Upon review, baseline hemoglobin approximately 12.5. - 03/24/2021 Hgb 8.6 - Iron panel showed decreased serum iron with decreased TIBC but elevated ferritin (ferritin may be elevated in the setting of the acute infection) - Stool occult pending. - Continues to show no signs of active bleeding. - Will monitor with repeat CBCs. # COPD in the setting of active smoker - Not O2 dependent at home. - She has been off of supplemental nasal cannula oxygen since 4 PM on 03/22, saturating this morning at 93% on room air. - Home inhalers were continued, but she has not needed them. - O2 orders were switched postsurgically to 90% or greater SPO2. - Active smoker. - Was referred to pulm by PCP, has not yet followed up. - Incentive spirometry was ordered, and patient has been using it. # Pericardial effusion - Incident finding on CT in 10/2020 - Has remained normotensive and is denying any significant dyspnea, chest pain, or palpitations. - ECHO without evidence of tamponade # RA - Presently on methotrexate as outpatient. Takes folate - Follows with Dr. Rosenbaum at [facility] Rheumatology # Right Hip OA - Pending R hip replacement. - Due to incidental pericardial effusion, pending workup by pulm and cardio - Pain medication as documented above. DVT ppx: mechanical ppx due to anemia. Dispo: Pending continued improvement of left lower extremity wound with plan for continued wet-to-dry dressing and switch to wound VAC later in the week. VS,Fishbone, I+O VS, Fishbone, I+O Laboratory Tests 03/24/21 05:26 Vital Signs Date Time Temp Pulse Resp B/P (MAP) Pulse Ox O2 Delivery O2 Flow Rate FiO2 9/22/21 08:12 16 Room Air 03/24/21 07:33 97.0 91 128/65 (86) 93 03/24/21 04:04 2.0 96 I&O- Last 24 Hours up to 6 AM 03/24/21 06:00 Intake Total 1730 ml Output Total 1850 ml Balance -120 ml GME ATTESTATION GME ATTESTATION My faculty preceptor for this patient encounter was physically present during the encounter and was fully available. All aspects of the patient interview, examination, medical decision making process, and medical care plan development were reviewed and approved by the faculty preceptor. The faculty preceptor is aware and concurs with the plan as stated in the body of this note and will attest to such by his/her cosignature. ATTENDING NOTE I, Perry Mcgarry, have independently examined this patient and performed my own physical exam, as well as reviewed the documentation and edited where necessary. I have discussed in detail with the resident / student the findings and plan of treatment as documented by the resident / student and edited their note. I agree with their findings and treatment plan and have edited their documentation. I will continue to follow the patient during this hospital stay. PAMELA SOTO OMS-3 Mar 24, 2021 11:14 PERRY MCGARRY MD Mar 24, 2021 14:55
[2021-03-24 11:30] VITALS: BP 134/63
[2021-03-24] MEDS: oxyCODONE 5MG TAB PO PRN ×3 (12:33→22:23)
[2021-03-24] MEDS: VANCOMYCIN HCL 750 MG, VIAL MATE ADAPTER 1 EACH in NS 250 ML IV SCH ×2 (13:41→22:20)
[2021-03-24 15:46] VITALS: BP 102/60
[2021-03-24] MEDS ORDERED: FUROSEMIDE 40MG/4ML VIAL (J1940) IV ONE (17:20)
[2021-03-24 20:00] VITALS: BP 119/59
[2021-03-24] MEDS: lisinopriL 5 MG TAB PO SCH (22:19)
[2021-03-24] MEDS: traZODone 100 MG TAB PO SCH (22:20)
[2021-03-24] MEDS: DULoxetine 30MG CAPSULE (CYMBALTA) PO SCH (22:23)
[2021-03-24] MEDS: ATORVASTATIN 10 MG TAB PO SCH (22:27)
[2021-03-24] MEDS: MAALOX 30 ML SUSP *UDC PO PRN (23:02)
[2021-03-25] VITALS: BP_SYST 136; BP_SYST 145; BP_DIAS 70
[2021-03-25] MEDS: MEROPENEM INJ 1 GM in IV 1 EA IV SCH ×3 (00:29→16:10)
[2021-03-25] MEDS ORDERED: LIDOCAINE 5% (LIDODERM) PATCH TD ONE ×3 (00:55→04:05)
[2021-03-25] MEDS ORDERED: CYCLOBENZAPRINE 10MG TABLET PO ONE (02:20)
[2021-03-25] MEDS: ACETAMINOPHEN TAB 650MG DOSE (2X325MG) PO PRN ×2 (02:30→05:29)
[2021-03-25] MEDS: oxyCODONE 5MG TAB PO PRN ×3 (02:31→16:10)
[2021-03-25 04:00] VITALS: BP 125/61
[2021-03-25 04:30] LABS: HEMATOCRIT 26.1 % (36.0-47.0); HEMOGLOBIN 8.3 g/dl (12.0-15.5); MEAN CORPUSCULAR HEMOGLOBIN 28.6 pg (27.0-33.0); MEAN CORPUSCULAR HGB CONC 31.8 g/dl (32.0-36.5); PLATELET COUNT, AUTOMATED 435 10^3/uL (150-450)
[2021-03-25 04:53] LABS: EOSINOPHILS 6 % (0-3); LYMPHOCYTES 27 % (16-44); METAMYELOCYTES 1 % (0-0); MONOCYTES 8 % (0-5); NEUTROPHILS 58 % (28-66)
[2021-03-25 04:54] LABS: PLATELET ESTIMATE INCREASED (NORMAL)
[2021-03-25 04:56] LABS: ANISOCYTOSIS 1+; HYPOCHROMASIA 1+
[2021-03-25 04:57] LABS: ALBUMIN 1.7 GM/DL (3.2-5.2); ALT/SGPT 11 U/L (12-78); BILIRUBIN,TOTAL 0.2 MG/DL (0.2-1.0); BLOOD UREA NITROGEN 7 MG/DL (7-18); CALCIUM LEVEL 8.1 MG/DL (8.5-10.1); CARBON DIOXIDE LEVEL 27 MEQ/L (21-32); CHLORIDE LEVEL 108 MEQ/L (98-107); CREATININE FOR GFR 0.47 MG/DL (0.55-1.30); GLOMERULAR FILTRATION RATE > 60.0 (>51); GLUCOSE, FASTING 95 MG/DL (70-100); MAGNESIUM LEVEL 1.9 MG/DL (1.8-2.4); POTASSIUM SERUM 3.4 MEQ/L (3.5-5.1); SODIUM LEVEL 141 MEQ/L (136-145); TOTAL PROTEIN 5.5 GM/DL (6.4-8.2)
[2021-03-25] MEDS: VANCOMYCIN HCL 750 MG, VIAL MATE ADAPTER 1 EACH in NS 250 ML IV SCH (05:19)
[2021-03-25] MEDS: SLF 3 ML SYR IV SCH ×3 (05:20→20:38)
[2021-03-25 08:00] VITALS: BP 121/63
[2021-03-25] MEDS: SENOKOT S TAB PO SCH ×2 (08:16→20:31)
[2021-03-25] MEDS: MORPHINE 2 MG/ML 1ML VIAL (J2270) IV PRN ×3 (08:21→20:45)
--- NOTE | 2021-03-25 08:58 | IPNPDOC ---
Text Note Date of Service The patient was seen on 03/25/21. NOTE General surgery. Dr Pool The patient is a 55-year-old female with a left thigh abscess, status post I&D of abscess 03/21/2021, status post extensive debridement and excision of skin and subcutaneous tissue down to the fascia left upper thigh 03/21/[address] Pool. The patient is afebrile T-max 99.5 VSS Awake and alert resting in bed Left thigh dressing is removed, packing is intact, serosanguineous drainage noted, left thigh erythema continuing to recede, much less erythema and tenderness. Assessment/plan Left thigh abscess status post debridement. The patient is reviewed as per Dr Pool. The patient is afebrile. Erythema around the wound and left thigh/left knee continues to improve. WBC 11.0, continues to downtrend. Continue IV antibiotics as per hospitalist/infectious disease Continue with wound care, wet to dry dressing. Plan for wound VAC placement tomorrow. Continue to monitor VS,Fishbone, I+O VS, Fishbone, I+O Laboratory Tests 03/25/21 04:09 Vital Signs Date Time Temp Pulse Resp B/P (MAP) Pulse Ox O2 Delivery O2 Flow Rate FiO2 03/25/21 08:31 20 Room Air 03/25/21 04:00 97.5 80 125/61 (82) 96 03/24/21 04:04 2.0 96 I&O- Last 24 Hours up to 6 AM0 03/25/21 06:00 Intake Total 1649 ml Output Total 1400 ml Balance 249 ml Isabella Rutherford Mar 25, 2021 08:58
[2021-03-25] MEDS ORDERED: MAG SULF 1GM/100ML (MAG RUN) 1 GM in IV 1 EA IV ONE (09:00)
[2021-03-25] MEDS ORDERED: POTASSIUM CHLORIDE 10MEQ SR TABLET PO ONE ×2 (09:00→20:00)
[2021-03-25] MEDS ORDERED: FUROSEMIDE 40MG/4ML VIAL (J1940) IV ONE (09:20)
[2021-03-25 12:00] VITALS: BP 125/65
--- NOTE | 2021-03-25 12:01 | IPNPDOC ---
Text Note Date of Service The patient was seen on 03/25/21. NOTE SUBJECTIVE: Ms. Guevara is a 55-year-old female who was seen this morning by the hospitalist service. She was seen sitting upright in a chair next to the bed. She was able to move to the chair independently. Overnight, she reports increased generalized pain and muscle spasms for which she was given a Lidoderm patch placed on her right lateral upper thigh and Flexeril 10mg tablet. She states her pain has now improved. She denies fever, chills, chest pain, SOB, palpitations, nausea, vomiting, abdominal pain, diarrhea, constipation, changes in urination, and changes in bowel movements. She notes suprapubic pressure/discomfort, but she has had similar episodes intermittently for the past 18 years. OBJECTIVE: PHYSICAL EXAMINATION: VITAL SIGNS: Please see below. GENERAL: Patient appears stated age and in no acute distress. She independently moved from the bed to a chair, and she sat comfortably. HEENT: NC, AT. Sclera non-icteric. Mucus membranes moist. CARDIOVASCULAR: RRR. Normal S1, S2. No murmurs, gallops, or rubs heard. RESPIRATORY: Faint right basilar crackles heard on auscultation, significantly improved from yesterday. No wheezing heard bilaterally. Comfortably breathing room air. No accessory muscle use. ABDOMINAL: Soft, non-distended, non-tender abdomen. Positive bowel sounds. No guarding or rigidity appreciated. EXTREMITIES: Small bump on right wrist consistent with ganglion cyst appearance. 2+ radial pulses bilaterally. 1+ pitting edema, worse on the left than on the right. Limited ROM in RLE due to right hip OA. Bilateral hallux valgus of feet. Dorsalis pedis and posterior tibialis pulses appreciated bilaterally. SKIN: Large triangular incision and drainage wound over proximal medial left thigh remains in place (about 7 inches x 6 inches x 3 inches). There is no active bleeding or odor emanating from the wound. There is minimal ser osanguinous drainage seen in the dressing. Healthy tissue appreciated on visualization with no eschar. Minimal area of erythema seen bordering the abscess site. NEUROLOGICAL: No gross focal neurologic deficits appreciated. Nondysarthric speech. IMAGIN03/21/2021 Chest X-ray Impression: "1. Emphysema. 2. Cardiomegaly. 3. No evidence of acute cardiopulmonary pathology. No significant change." 03/21/2021 Left Lower Extremity Vascular US Impression: "No evidence of deep venous thrombosis of the left lower extremity." 03/21/2021 Left Lower Extremity US: FINDINGS: "The area of redness swelling and drainage in the left posteromedial aspect of the left thigh, proximally, demonstrates a complex fluid collection containing air bubbles measuring 3.1 x 1.6 x 1.0 cm. No fistula tract was demon strated." IMPRESSION: "Complex fluid collection containing air in the left thigh as described. No fistula is demonstrated." MICROBIOLOGY: 03/21/2021 Left Thigh Final Wound Culture: STAPHYLOCOCCUS SP COAG NEG 03/21/2021 Left Thigh Anaerobic Culture: PENDING 03/21/2021 Left Thigh Preliminary Would Culture: PSEUDOMONAS AERUGINOSA, CORYNEBACTERIUM SPECIES ASSESSMENT/PLAN: Ms. Guevara is a 55-year-old female with a h/o RA, COPD (not O2 dependent), OA of right hip, hyperlipidemia, and sciatica of the right right who presents with left thigh abscess and surrounding cellulitis and BLE pitting edema. # Left thigh abscess - Patient is s/p I&D on 03/21/2021. - WBC at 11 and continuing to downtrend since admission. - Left thigh wound cultures found Staph species coag negative, pseudomonas aeruginosa, and corynebacterium species; anaerobic culture pending. - Vancomycin discontinued per Infectious Disease recommendations. - Continue IV Meropenem (day #5); unable to de-escalate to Zosyn due to penicillin allergy and will consider Levaquin and Flagyl upon discharge and when anaerobic culture is final. - Infectious disease consulted and hospitalist service greatly appreciates continued recommendations. - Per general surgery, no evidence of necrotizing fasciitis intraoperatively. Will continue wet-to-dry dressing changes with likely switch to wound VAC later in the week. Hospitalist service greatly appreciates continued recommendations. - Patient had increased pain and muscle spasm overnight; given Lidoderm patch and Flexeril, which provided relief. - Lidoderm patch removed this afternoon; will continue Flexeril 10mg Q8Hrs as needed. - Continue acetaminophen, tramadol, and IV morphine as needed. # Left lower extremity cellulitis, improving - On visual inspection, improved from yesterday; minimal warmth and intensity of erythema mostly bordering abscess. - WBC improved at 11. - Left thigh wound cultures found Staph species coag negative, pseudomonas aeruginosa, and corynebacterium species; anaerobic culture pending. - Continuing day #5 of IV vancomycin and meropenem; pending anaerobic culture results, may adjust antibiotic therapy. # BLE pitting edema - 1+ pitting edema still present on examination; worse on the left than on the right. - Patient was given 1 dose of IV Lasix 40mg, oral KCl 40mg, and IV Mg sulfate 1gm; she reports improvement. - Patient does not appear fluid overloaded; lungs sounds are continuing to improve. - Patient appears hemodynamically stable. - No known history of CHF. - Will continue to monitor vitals. - 1 dose of IV Lasix 40mg for the AM ordered; KCl 40mg PO ordered for the evening. # Suprapubic discomfort - Unrelieved with bowel movement; patient denies dysuria, pyuria, hematuria - After speaking with the patient, she reports an 18 year history of intermittent suprapubic discomfort/pressure that started with menopause. - Will continue to monitor. - Bladder scan negative. # Normocytic hypochromic anemia; - Iron panel showed decreased serum iron with decreased TIBC but elevated ferritin; most likely 2/2 anemia of inflammation. - Continues to show no signs of active bleeding. - Stool occult negative. - Will monitor with repeat CBCs. # COPD in the setting of active smoker - Not O2 dependent at home. - Patient is saturating at 96% on room air. - Home inhalers were continued, but she has not needed them. - Active smoker. - Was referred to pulm by PCP, has not yet followed up. - Incentive spirometry was ordered, and patient has been using it. # Pericardial effusion - Incident finding on CT in 10/2020. - Has remained normotensive and is denying any significant dyspnea, chest pain, or palpitations. - ECHO without evidence of tamponade. - Patient should follow up outpatient with cardiology. # RA - Presently on methotrexate as outpatient. Takes folate - Follows with Dr. Rosenbaum at [facility] Rheumatology # Right Hip OA - Pending R hip replacement. - Due to incidental pericardial effusion, pending workup by pulm and cardio - Pain medication as documented above. DVT ppx: mechanical ppx due to anemia. Dispo: Pending continued improvement of left lower extremity wound with plan for continued wet-to-dry dressing and switch to wound VAC later in the week. VS,Fishbone, I+O VS, Fishbone, I+O Laboratory Tests 03/25/21 04:09 Vital Signs Date Time Temp Pulse Resp B/P (MAP) Pulse Ox O2 Delivery O2 Flow Rate FiO2 03/25/21 08:31 20 Room Air 03/25/21 08:00 97.5 69 121/63 (82) 95 03/24/21 04:04 2.0 96 I&O- Last 24 Hours up to 6 AM 03/25/21 05:59 Intake Total 1649 ml Output Total 1400 ml Balance 249 ml GME ATTESTATION GME ATTESTATION My faculty preceptor for this patient encounter was physically present during the encounter and was fully available. All aspects of the patient interview, examination, medical decision making process, and medical care plan development were reviewed and approved by the faculty preceptor. The faculty preceptor is aware and concurs with the plan as stated in the body of this note and will attest to such by his/her cosignature. ATTENDING NOTE I, Perry Mcgarry, have independently examined this patient and performed my own physical exam, as well as reviewed the documentation and edited where necessary. I have discussed in detail with the resident / student the findings and plan of treatment as documented by the resident / student and edited their note. I agree with their findings and treatment plan and have edited their documentation. I will continue to follow the patient during this hospital stay. PAMELA SOTO OMS-3 Mar 25, 2021 12:01 PERRY MCGARRY MD Mar 25, 2021 17:34
[2021-03-25] MEDS ORDERED: **NOTE PATIENT COMMENT** MISC XX ONE ×3 (13:00→16:04)
[2021-03-25] MEDS ORDERED: VANCOMYCIN HCL 750 MG, VIAL MATE ADAPTER 1 EACH in NS 250 ML IV SCH (13:00)
[2021-03-25] MEDS ORDERED: VANCOMYCIN HCL 500 MG in D5W MINI-BAG PLUS 100 ML IV SCH (14:00)
[2021-03-25 16:00] VITALS: BP 123/56
--- NOTE | 2021-03-25 19:35 | IPN ---
INFECTIOUS DISEASE PROGRESS NOTE DATE: 03/25/2021 SUBJECTIVE: Honey is sitting at her bedside. She is doing well. She states she has had frequency because she got furosemide 40 mg times one dose. She complains of right knee pain and hip pain. She was supposed to have a total knee and total hip replacement before [facility], so these pains have been chronic. Left groin is stinging, but doing better. She has had no nausea, vomiting or diarrhea. No abdominal pain. LABORATORY DATA: White count 11, hemoglobin 8.3, hematocrit 26.1, platelets 435, 58% neutrophils, 27% lymphocytes, 8% monocytes. Sodium 141, potassium 3.4, chloride 108, bicarbonate 27, BUN 7, creatinine 0.47, glucose 95, calcium 8.1, magnesium 1.9. AST 10, ALT 11, alkaline phosphatase 91, total protein 5.5, albumin 1.7. C-reactive protein (CRP) 9.09. Vancomycin trough was 19.9. Wound culture is still pending and aerobically, there is Pseudomonas aeruginosa, penicillin sensitive. Staphylococcus PCU and Corynebacterium species few. Anaerobes still pending. PHYSICAL EXAMINATION: VITAL SIGNS: Temperature 98.7, pulse 87, respirations 20, oxygen saturation 98% on room air. HEART: Normal S1, S2. No murmurs. ABDOMEN: Soft, nontender, obese. BACK: No costovertebral angle (CVA) tenderness. LUNGS: Clear. No wheezes, rales or rhonchi. EXTREMITIES: 1+ pitting edema. Left thigh wound was examined. Triangular shaped wound with granulation tissue. Erythema of the thigh has resolved. Mild tenderness to touch. No purulence on the dressing. Serosanguinous discharge. MUSCULOSKELETAL EXAM: Multiple deformities of rheumatoid arthritis of the toes, knees. IMPRESSION: 1. Left thigh cellulitis abscess that is status post incision and drainage (I and D). Culture is positive for Pseudomonas and anaerobes. Staphylococcus coag negative is probably a skin contaminant. 2. Severe rheumatoid arthritis. Waiting for a total hip and total knee replacement on the right side. PLAN: Discontinue intravenous (IV) vancomycin. Continue with IV meropenem. As the patient is penicillin allergic, I cannot deescalate to Zosyn. Will continue with IV antibiotic while in the hospital. When she is ready to go home, she will be switched to some oral antibiotic, depending on final report. She probably can be switched to Levaquin and Flagyl. Wound vacuum assisted closure (VAC) will be placed tomorrow. Please call me before wound VAC placement so I can see the wound.
[2021-03-25 20:00] VITALS: BP 169/89
[2021-03-25] MEDS: traZODone 100 MG TAB PO SCH (20:31)
[2021-03-25] MEDS: lisinopriL 5 MG TAB PO SCH (20:32)
[2021-03-25] MEDS: ATORVASTATIN 10 MG TAB PO SCH (20:34)
[2021-03-25] MEDS: DULoxetine 30MG CAPSULE (CYMBALTA) PO SCH (20:34)
[2021-03-26] VITALS: BP 102/58
[2021-03-26] MEDS: MEROPENEM INJ 1 GM in IV 1 EA IV SCH ×4 (00:46→23:57)
[2021-03-26] MEDS: ACETAMINOPHEN TAB 650MG DOSE (2X325MG) PO PRN (00:52)
[2021-03-26 04:00] VITALS: BP 112/53
[2021-03-26 04:23] LABS: HEMATOCRIT 27.6 % (36.0-47.0); HEMOGLOBIN 8.6 g/dl (12.0-15.5); MEAN CORPUSCULAR HEMOGLOBIN 28.4 pg (27.0-33.0); MEAN CORPUSCULAR HGB CONC 31.2 g/dl (32.0-36.5); MEAN CORPUSCULAR VOLUME 91.1 fl (80.0-96.0); PLATELET COUNT, AUTOMATED 457 10^3/uL (150-450); RED BLOOD COUNT 3.03 10^6/uL (4.00-5.40); WHITE BLOOD COUNT 11.6 10^3/uL (4.0-10.0)
[2021-03-26] MEDS: oxyCODONE 5MG TAB PO PRN ×3 (04:40→23:57)
[2021-03-26 05:01] LABS: ALBUMIN 1.9 GM/DL (3.2-5.2); ALT/SGPT 10 U/L (12-78); BILIRUBIN,TOTAL 0.2 MG/DL (0.2-1.0); BLOOD UREA NITROGEN 8 MG/DL (7-18); CARBON DIOXIDE LEVEL 31 MEQ/L (21-32); CHLORIDE LEVEL 104 MEQ/L (98-107); CREATININE FOR GFR 0.48 MG/DL (0.55-1.30); GLOMERULAR FILTRATION RATE > 60.0 (>51); GLUCOSE, FASTING 100 MG/DL (70-100); POTASSIUM SERUM 4.2 MEQ/L (3.5-5.1); SODIUM LEVEL 141 MEQ/L (136-145); TOTAL PROTEIN 5.6 GM/DL (6.4-8.2)
[2021-03-26 05:43] LABS: ANISOCYTOSIS 1+; EOSINOPHILS 8 % (0-3); HYPOCHROMASIA 1+; LYMPHOCYTES 29 % (16-44); METAMYELOCYTES 1 % (0-0); MONOCYTES 4 % (0-5); NEUTROPHILS 56 % (28-66); PLATELET ESTIMATE INCREASED (NORMAL)
[2021-03-26 05:44] LABS: OVALOCYTES 1+
[2021-03-26] MEDS: CYCLOBENZAPRINE 10MG TABLET PO PRN (06:18)
[2021-03-26] MEDS: SLF 3 ML SYR IV SCH ×3 (06:20→20:34)
[2021-03-26 08:00] VITALS: BP 117/61
[2021-03-26] MEDS: SENOKOT S TAB PO SCH ×2 (08:21→20:32)
[2021-03-26] MEDS: MORPHINE 2 MG/ML 1ML VIAL (J2270) IV PRN ×3 (09:40→20:39)
--- NOTE | 2021-03-26 09:52 | IPNPDOC ---
Text Note Date of Service The patient was seen on 03/26/21. NOTE General surgery. Dr Pool The patient is a 55-year-old female with a left thigh abscess, status post I&D of abscess 03/21/2021, status post extensive debridement and excision of skin and subcutaneous tissue down to the fascia left upper thigh 03/21/[address] Pool. The patient is afebrile VSS Awake and alert resting in bed Lungs with some inspiratory rales noted at the bases. S1-S2 regular rate rhythm Left thigh dressing is removed, serosanguineous drainage noted, healthy appearing tissue,much less erythema and tenderness. Edema noted of BLEs, with calf tenderness LLE. Assessment/plan Left thigh abscess status post debridement. The patient is reviewed and examined this morning as per Dr Pool. The patient is afebrile. Erythema around the wound and left thigh/left knee has significantly improved. WBC 11.6 Continue IV antibiotics as per hospitalist/infectious disease Continue with wound care, Plan for wound VAC placement today. Continue to monitor LLE edema and calf tenderness. LLE venous US ordered as per hospitalist. VS,Fishbone, I+O VS, Fishbone, I+O Laboratory Tests 03/26/21 03:39 Vital Signs Date Time Temp Pulse Resp B/P (MAP) Pulse Ox O2 Delivery O2 Flow Rate FiO2 03/26/21 08:00 98.6 88 18 117/61 (79) 95 Room Air 03/24/21 04:04 2.0 96 I&O- Last 24 Hours up to 6 AM 03/26/21 06:00 Intake Total 1150 ml Output Total 900 ml Balance 250 ml Isabella Rutherford Mar 26, 2021 09:52
[2021-03-26] MEDS: POTASSIUM CHLORIDE 10MEQ SR TABLET PO SCH (10:29)
[2021-03-26] MEDS: FUROSEMIDE 40MG/4ML VIAL (J1940) IV SCH ×2 (10:29→16:11)
--- NOTE | 2021-03-26 12:19 | REP ---
INDICATION: suprapubic fullness . COMPARISON: None. TECHNIQUE: Transvesical and transvaginal imaging FINDINGS: The uterus measures 6.1 x 3.2 x 5 cm. There is uterine echo pattern heterogenous without evidence of a mass. The endometrial echo complex measures 3 mm in its greatest thickness, however, within the fundal portion there is a 5.8 x 1.8 x 5.9 mm sized potential echogenic nodule. The right ovary measures 2.6 x 2 x 2.6 cm and is within normal limits. Left ovary measures 2.2 x 1.8 x 2.5 cm and is within normal limits. Urinary bladder measures 13 x 8 x 9 cm. IMPRESSION: Possible endometrial cavitary nodule as described above. Neoplastic change cannot be ruled out. Clinical correlation and follow-up is recommended. If necessary obtain pre and post gadolinium enhanced pelvic MRI <Electronically signed by Chris Mata > 03/26/21 [id number]
--- NOTE | 2021-03-26 12:22 | REP ---
INDICATION: increased LLE > RLE pit edema w/ Lt calf tenderness COMPARISON: 03/21/2021. TECHNIQUE: Real time compression and duplex Doppler interrogation of the left lower extremity deep venous system is performed, including the right common femoral vein.Compression of the left peroneal and posterior tibial veins is performed. FINDINGS: The left common femoral, visualized superficial femoral and popliteal veins are fully compressible with transducer pressure and demonstrate normal spontaneous and phasic flow, without evidence of deep venous thrombosis. The proximal and mid superficial femoral vein could not be visualized due to overlying open wound. The right common femoral vein demonstrates no thrombus.The left peroneal and posterior tibial veins could not be visualized. IMPRESSION: No evidence of deep venous thrombosis of the visualized left lower extremity femoral popliteal venous system.No thrombus in the visualized left peroneal and posterior tibial veins. <Electronically signed by Nguyễn Graff > 03/26/21 [id number]
--- NOTE | 2021-03-26 12:24 | IPN ---
PROGRESS NOTE DATE: 03/26/2021 Honey states that her left thigh has been aching more this morning compared to yesterday. She has been in and out of bed more frequently because of diuresis. She is on furosemide 40 mg intravenous (IV) every 12 hours. She denies any nausea, vomiting, or diarrhea. No abdominal pain. LABORATORY DATA: White count 11.6, hemoglobin 8.6, hematocrit 27.6 , 56% neutrophils, 29% lymphocytes, 4% monocytes. Sodium 141, potassium 4.2, chloride 104, bicarbonate 31, BUN 8, creatinine 0.48, glucose 100, calcium 8. AST 9, ALT 10 alkaline phosphatase 91, albumin 1.9. Wound culture: Staphylococcus coagulase negative Corynebacterium species and Pseudomonas aeruginosa. Anaerobic cultures are pending. Pseudomonas is sensitive to quinolone PHYSICAL EXAMINATION: Temperature 98.6, pulse 88, respirations 18, blood pressure 117/61, oxygen saturation 95% on room air. HEART: Normal S1, S2. No murmurs appreciated. LUNGS: Clear. No wheezes, rales, or rhonchi. ABDOMEN: Obese, soft, nontender. EXTREMITIES: Edema +2 of the left leg, +1 edema of the right leg. Thigh slightly swollen. Tender around the wound area. The wound is open. There is a triangular-shaped open ulceration measuring at least 15 x 10 cm, clean with granulation tissue. There is no purulence. Discharge is mostly serosanguineous. IMPRESSION: 1. Skin and soft tissue infection with abscess, status post incision and drainage (I and D) with polymicrobial alexis. Patient is on IV meropenem, doing well. She probably could be switched to oral levofloxacin and metronidazole tomorrow. 2. Lower extremity edema concerning for deep venous thrombosis (DVT) of left lower extremity. Patient is not on DVT prophylaxis and needs to be started on subcutaneous heparin. 3. History of severe rheumatoid arthritis with multiple joint deformities, waiting for total knee and total hip replacement on the right side. PLAN: Patient probably could be switched from IV Zosyn to oral levofloxacin and metronidazole and a dose of 750 mg daily of Levaquin and metronidazole 500 mg by mouth three times a day. Ultrasound of left lower extremity has been scheduled. Case discussed with Dr. Fitch. Patient waiting for a wound vacuum-assisted closure (VAC) that will be placed by Dr. Pool. [facility]
--- NOTE | 2021-03-26 14:08 | IPNPDOC ---
Text Note Date of Service The patient was seen on 03/26/21. NOTE SUBJECTIVE: Ms. Guevara is a 55-year-old female who was seen by the hospitalist service this morning. She was lying in bed in a left lateral recumbent position. She reports improvement in pain from the previous night. However, she notes continued suprapubic discomfort/pressure. She denies SOB, chest pain, palpitations, abdominal pain, nausea, vomiting, changes in urination, and changes in bowel movements. During the exam, general surgery also came in to see her and the left thigh wound. Wound VAC will be placed today. Of note, patient's son has tested positive for COVID and symptomatic; he was in the ED at [place]. She is nervous about returning home due to her son's status since they live together. General surgery reassured her that she will be staying past the weekend and will be reassessed on Monday regarding the duration of her hospital stay. She and her son are unvaccinated. OBJECTIVE: PHYSICAL EXAMINATION: VITAL SIGNS: Please see below. GENERAL: Patient appears stated age, afebrile, and in no acute distress. She is lying comfortably on her left lateral recumbent. HEENT: NC, AT. Sclera non-icteric. Mucus membranes moist. CARDIOVASCULAR: RRR. Normal S1, S2. No murmurs, gallops, or rubs heard. RESPIRATORY: Faint left basilar crackles heard on auscultation; right crackles significantly improved from yesterday's exam. No wheezing heard bilaterally. Comfortably breathing room air. No accessory muscle use. ABDOMINAL: Soft, non-distended, non-tender abdomen. Positive bowel sounds. No guarding or rigidity appreciated. Suprapubic pressure and discomfort but non- tender to palpation. EXTREMITIES: Small bump on right wrist consistent with ganglion cyst appearance. 2+ radial pulses bilaterally. 1+ pitting edema, worse on the left than on the right. Tender to palpation in left calf. Limited ROM in RLE due to right hip OA. Bilateral trace pedal edema. Bilateral hallux valgus of feet. Dorsalis pedis and posterior tibialis pulses appreciated bilaterally. SKIN: Large triangular incision and drainage wound over proximal medial left thigh remains in place (about 7 inches x 6 inches x 3 inches). There is no active bleeding or odor emanating from the wound. There is minimal serosanguinous drainage seen in the dressing. Healthy tissue appreciated on visualization with no eschar. Minimal area of erythema seen bordering the wound site. LLE no longer warmer to touch than RLE. NEUROLOGICAL: No gross focal neurologic deficits appreciated. Nondysarthric speech. IMAGIN03/26/2021 Pelvic US Findings: "The uterus measures 6.1 x 3.2 x 5 cm. There is uterine echo pattern heterogenous without evidence of a mass. The endometrial echo complex measures 3 mm in its greatest thickness, however, within the fundal portion there is a 5.8 x 1.8 x 5.9 mm sized potential echogenic nodule. The right ovary measures 2.6 x 2 x 2.6 cm and is within normal limits. Left ovary measures 2.2 x 1.8 x 2.5 cm and is within normal limits. Urinary bladder measures 13 x 8 x 9 cm." Impression: "Possible endometrial cavitary nodule as described above. Neoplastic change cannot be ruled out. Clinical correlation and follow-up is recommended. If necessary obtain pre and post gadolinium enhanced pelvic MRI." 03/26/2021 LLE Duplex US Impression: "No evidence of deep venous thrombosis of the visualized left lower extremity femoral popliteal venous system.No thrombus in the visualized left peroneal and posterior tibial veins." 03/22/2021 Echocardiogram Comments: "Moderate size pericardial effusion measuring 2.2 cm at the base of the heart posteriorly but otherwise other segments measured 1.0 cm. There was a slight degree of right atrial free wall inversion but otherwise no sign of cardiac chamber compression. There was no significant fluctuation in Doppler flow signals to suggest cardiac compression. Normal IV size and collapse is also against cardiac tamponade." 03/21/2021 Chest X-ray Impression: "1. Emphysema. 2. Cardiomegaly. 3. No evidence of acute cardiopulmonary pathology. No significant change." 03/21/2021 Left Lower Extremity Vascular US Impression: "No evidence of deep venous thrombosis of the left lower extremity." 03/21/2021 Left Lower Extremity US: FINDINGS: "The area of redness swelling and drainage in the left posteromedial aspect of the left thigh, proximally, demonstrates a complex fluid collection containing air bubbles measuring 3.1 x 1.6 x 1.0 cm. No fistula tract was demonstrated." IMPRESSION: "Complex fluid collection containing air in the left thigh as described. No fistula is demonstrated." MICROBIOLOGY: 03/21/2021 Left Thigh Final Wound Culture: STAPHYLOCOCCUS SP COAG NEG 03/21/2021 Left Thigh Anaerobic Culture: PENDING 03/21/2021 Left Thigh Preliminary Would Culture: PSEUDOMONAS AERUGINOSA, CORYNEBACTERIUM SPECIES ASSESSMENT/PLAN: Ms. Guevara is a 55-year-old female with a h/o RA, COPD (not O2 dependent), OA of right hip, hyperlipidemia, and sciatica of the right leg who presents with left thigh abscess and surrounding cellulitis and BLE pitting edema. # Left thigh abscess - Patient is s/p I&D on 03/21/2021. - WBC continuing to downtrend since admission. - Left thigh wound cultures found Staph species coag negative (probably skin contaminant per ID), pseudomonas aeruginosa, and corynebacterium species; anaerobic culture pending. - Continue IV Meropenem (day #6); unable to de-escalate to Zosyn due to penicillin allergy. - Likely transition to PO antibiotics in the form of oral Levaquin 750 mg daily and oral Flagyl 500mg TID per ID recommendations. - Infectious disease consulted and hospitalist service greatly appreciates continued care and recommendations. - Per general surgery, will have wound VAC placed today. Hospitalist service greatly appreciates continued care and recommendations. - Continue Flexeril 10mg Q8H, acetaminophen 650mg Q4H, oxycodone 5mg Q6H, and IV morphine 2mg Q4H as needed. # Left lower extremity cellulitis, improving - On visual inspection, continuing to improve; erythema mostly bordering wound site and absent warmth. - WBC continuing to improve. - Left thigh wound cultures found Staph species coag negative (probably skin contaminant per ID), pseudomonas aeruginosa, and corynebacterium species; anaerobic culture pending. - Continuing day #6 of IV meropenem; may switch to oral Levaquin and Flagyl per ID recommendations as detailed above. # BLE pitting edema - 1+ pitting edema still present on examination; worse on the left than on the right. - Patient does not appear fluid overloaded; lungs sounds are continuing to improve. - Patient has tenderness to palpation in left calf, previously not appreciated. - Patient appears hemodynamically stable. - No known history of CHF. - IV Lasix 40mg BID ordered. - Oral KCl 20mg ordered. - LLE duplex US showed no evidence of DVT. - Will continue Heparin SQ 5000 units. - Will continue to monitor vitals. # Suprapubic discomfort - Unrelieved with bowel movement; patient denies dysuria, pyuria, hematuria - After speaking with the patient, she reports an 18 year history of intermittent suprapubic discomfort/pressure that started with menopause and h/o irregular menses. - Bladder scan negative. - Pelvic US showed possible endometrial cavitary nodule. Patient should follow up outpatient with PCP and gynecology for chronic intermittent suprapubic pressure and further work up concerning possible endometrial nodule. # Normocytic hypochromic anemia; - Iron panel showed decreased serum iron with decreased TIBC but elevated ferritin; most likely 2/2 anemia of inflammation. - Continues to show no signs of active bleeding. - Stool occult negative. - Will monitor with repeat CBCs. # COPD in the setting of active smoker - Not O2 dependent at home. - Patient is saturating at 95% on room air. - Home inhalers were continued, but she has not needed them. - Active smoker; Nicotine patch 21mg/24hr as needed ordered. - Was referred to pulm by PCP, has not yet followed up. - Incentive spirometry was ordered, and patient has been using it. # Tobacco use - Active smoker - Nicotine patch 21mg/24hr as needed ordered; hospital stay will extend through the weekend. # Pericardial effusion - Incident finding on CT in 10/2020. - Has remained normotensive and is denying any significant dyspnea, chest pain, or palpitations. - 03/22/2021 Echocardiogram showed moderate pericardial effusion without evidence of tamponade. - Patient should follow up outpatient with cardiology. # RA - Presently on methotrexate as outpatient; currently held. Takes folate; currently held. - Follows with Dr. Rosenbaum at [facility] Rheumatology # Right Hip OA - Pending R hip replacement. - Due to incidental pericardial effusion, pending workup by pulm and cardio - Pain medication as documented above. DVT ppx: Heparin SQ 5000 units Dispo: Pending continued improvement of left lower extremity wound with wound VAC placement; anticipated stay through at least 03/29/2021. VS,Fishbone, I+O VS, Fishbone, I+O Laboratory Tests 03/26/21 03:39 Vital Signs Date Time Temp Pulse Resp B/P (MAP) Pulse Ox O2 Delivery O2 Flow Rate FiO2 03/26/21 09:50 20 95 Room Air 03/26/21 08:00 98.6 88 117/61 (79) 03/24/21 04:04 2.0 96 I&O- Last 24 Hours up to 6 AM 03/26/21 06:00 Intake Total 1150 ml Output Total 900 ml Balance 250 ml GME ATTESTATION GME ATTESTATION My faculty preceptor for this patient encounter was physically present during the encounter and was fully available. All aspects of the patient interview, examination, medical decision making process, and medical care plan development were reviewed and approved by the faculty preceptor. The faculty preceptor is aware and concurs with the plan as stated in the body of this note and will attest to such by his/her cosignature. ATTENDING NOTE I, Perry Mcgarry, have independently examined this patient and performed my own physical exam, as well as reviewed the documentation and edited where necessary. I have discussed in detail with the resident / student the findings and plan of treatment as documented by the resident / student and edited their note. I agree with their findings and treatment plan and have edited their documentation. I will continue to follow the patient during this hospital stay. PAMELA SOTO OMS-3 Mar 26, 2021 13:08 PERRY MCGARRY MD Mar 26, 2021 18:12
[2021-03-26] MEDS: HEPARIN SOD (PORCINE) 5000UNITS/ML 1ML VIAL/SYRINGE SQ SCH ×2 (15:29→20:33)
[2021-03-26 16:15] VITALS: BP 125/71
[2021-03-26 20:29] VITALS: BP 111/62
[2021-03-26] MEDS: ATORVASTATIN 10 MG TAB PO SCH (20:32)
[2021-03-26] MEDS: DULoxetine 30MG CAPSULE (CYMBALTA) PO SCH (20:32)
[2021-03-26] MEDS: traZODone 100 MG TAB PO SCH (20:32)
[2021-03-26] MEDS: lisinopriL 5 MG TAB PO SCH (20:32)
[2021-03-27] VITALS (7 sets, daily range): BP systolic 104–116; BP diastolic 54–76
[2021-03-27] MEDS: CYCLOBENZAPRINE 10MG TABLET PO PRN ×3 (02:21→22:00)
[2021-03-27] MEDS: ACETAMINOPHEN TAB 650MG DOSE (2X325MG) PO PRN ×4 (02:22→20:43)
[2021-03-27 06:02] LABS: HEMATOCRIT 27.3 % (36.0-47.0); HEMOGLOBIN 8.5 g/dl (12.0-15.5); MEAN CORPUSCULAR HEMOGLOBIN 28.6 pg (27.0-33.0); MEAN CORPUSCULAR HGB CONC 31.1 g/dl (32.0-36.5); MEAN CORPUSCULAR VOLUME 91.9 fl (80.0-96.0); PLATELET COUNT, AUTOMATED 443 10^3/uL (150-450); RED BLOOD COUNT 2.97 10^6/uL (4.00-5.40); WHITE BLOOD COUNT 10.3 10^3/uL (4.0-10.0)
[2021-03-27] MEDS: HEPARIN SOD (PORCINE) 5000UNITS/ML 1ML VIAL/SYRINGE SQ SCH ×3 (06:14→21:21)
[2021-03-27] MEDS: SLF 3 ML SYR IV SCH ×3 (06:14→21:21)
[2021-03-27 06:30] LABS: ALT/SGPT 9 U/L (12-78); BILIRUBIN,TOTAL 0.3 MG/DL (0.2-1.0); BLOOD UREA NITROGEN 12 MG/DL (7-18); CALCIUM LEVEL 8.2 MG/DL (8.5-10.1); CARBON DIOXIDE LEVEL 31 MEQ/L (21-32); CHLORIDE LEVEL 102 MEQ/L (98-107); CREATININE FOR GFR 0.64 MG/DL (0.55-1.30); GLOMERULAR FILTRATION RATE > 60.0 (>51); GLUCOSE, FASTING 95 MG/DL (70-100); MAGNESIUM LEVEL 2.1 MG/DL (1.8-2.4); POTASSIUM SERUM 4.2 MEQ/L (3.5-5.1); SODIUM LEVEL 141 MEQ/L (136-145); TOTAL PROTEIN 5.8 GM/DL (6.4-8.2)
[2021-03-27 06:51] LABS: ANISOCYTOSIS 1+; ATYPICAL LYMPH 1 % (0-5); BASOPHILS 1 % (0-1); EOSINOPHILS 8 % (0-3); HYPOCHROMASIA 1+; LYMPHOCYTES 36 % (16-44); MONOCYTES 4 % (0-5); NEUTROPHILS 49 % (28-66); PLATELET CLUMPS SMALL AMT; PLATELET ESTIMATE INCREASED (NORMAL)
[2021-03-27] MEDS: MEROPENEM INJ 1 GM in IV 1 EA IV SCH (07:45)
[2021-03-27] MEDS: oxyCODONE 5MG TAB PO PRN ×3 (07:47→23:29)
[2021-03-27] MEDS: SENOKOT S TAB PO SCH ×2 (08:48→20:53)
[2021-03-27] MEDS: FUROSEMIDE 40MG/4ML VIAL (J1940) IV SCH ×2 (08:48→16:21)
[2021-03-27] MEDS: POTASSIUM CHLORIDE 10MEQ SR TABLET PO SCH (08:49)
--- NOTE | 2021-03-27 10:33 | IPNPDOC ---
Date Seen The patient was seen on 03/27/21. Progress Note SUBJECTIVE: Honey was seen and examined this morning by the hospitalist service while sitting in a bedside chair. She had her wound VAC placed yesterday afternoon and reports some associated discomfort and pain with that. Per nursing, some of the overlying adhesive came free, which may have exacerbated the wound pain related to the suction. New adhesive has now been replaced over the wound VAC. In addition, nursing reported her pain level was an 8 prior to receiving as needed morning pain medications, and subsequently has come down to 4. Patient continues to void and have bowel movements without any issues. Her appetite remains good and she is eating and drinking without any issues. Patient reports her left calf pain from yesterday has resolved and the distal left lower extremity no longer feels "tight." She denies any current or overnight fever, chills, night sweats, chest pain, palpitations, shortness of breath, or abdominal pain/nausea/vomiting. OBJECTIVE PHYSICAL EXAMINATION: VITAL SIGNS: Please see below. GENERAL: Pleasant female seated in bedside chair. Appears slightly older than stated age. NAD. HEENT: Normocephalic, atraumatic. Noninjected sclera. Wearing eyeglasses. Oral cavity: No pharyngeal erythema or exudate appreciated. MMM. Neck: No significant JVD appreciated. Trachea midline. CARDIOVASCULAR: Regular rate, regular rhythm. Normal S1, S2. No murmurs or rubs appreciated. RESPIRATORY: Lungs clear today compared to recent prior exams. Adequate respiratory effort. No adventitious breath sounds were appreciated. Symmetric chest expansion. Breathing room air. ABDOMINAL: Soft, nontender and nondistended. Hypoactive bowel sounds throughout. There is no guarding nor any rigidity. No suprapubic tenderness. EXTREMITIES: There is now a wound VAC in place over her proximal left lower extremity wound with overlying clear adhesives. There is a minimal amount of serosanguineous discharge in the suction tube. There is no significant erythema, induration, or warmth surrounding the wound nor is there any significant erythema or warmth over the left lower extremity. There is bilateral lower extremity pitting edema approximately 1-2+, greater on the left lower extremity. Negative calf tenderness bilaterally. 2+ bilateral popliteal pulses. Bilateral hallux valgus of feet. There remains ganglion cyst appearing structure over the right wrist. NEUROLOGICAL: No gross focal neurologic deficits appreciated. Nondysarthric s peech. PSYCHOLOGICAL: Mood and affect appear appropriate. LABORATORY DATA, IMAGING STUDIES, MICROBIOLOGY: Please see below. IMAGIN03/26/2021 Pelvic US Findings: "The uterus measures 6.1 x 3.2 x 5 cm. There is uterine echo pattern heterogenous without evidence of a mass. The endometrial echo complex measures 3 mm in its greatest thickness, however, within the fundal portion there is a 5.8 x 1.8 x 5.9 mm sized potential echogenic nodule. The right ovary measures 2.6 x 2 x 2.6 cm and is within normal limits. Left ovary measures 2.2 x 1.8 x 2.5 cm and is within normal limits. Urinary bladder measures 13 x 8 x 9 cm." Impression: "Possible endometrial cavitary nodule as described above. Neoplastic change cannot be ruled out. Clinical correlation and follow-up is recommended. If necessary obtain pre and post gadolinium enhanced pelvic MRI." 03/26/2021 LLE Duplex US Impression: "No evidence of deep venous thrombosis of the visualized left lower extremity femoral popliteal venous system.No thrombus in the visualized left peroneal and posterior tibial veins." 03/22/2021 Echocardiogram Comments: "Moderate size pericardial effusion measuring 2.2 cm at the base of the heart posteriorly but otherwise other segments measured 1.0 cm. There was a slight degree of right atrial free wall inversion but otherwise no sign of cardiac chamber compression. There was no significant fluctuation in Doppler flow signals to suggest cardiac compression. Normal IV size and collapse is also against cardiac tamponade." 03/21/2021 Chest X-ray Impression: "1. Emphysema. 2. Cardiomegaly. 3. No evidence of acute cardiopulmonary pathology. No significant change." 03/21/2021 Left Lower Extremity Vascular US Impression: "No evidence of deep venous thrombosis of the left lower extremity." 03/21/2021 Left Lower Extremity US: FINDINGS: "The area of redness swelling and drainage in the left posteromedial aspect of the left thigh, proximally, demonstrates a complex fluid collection containing air bubbles measuring 3.1 x 1.6 x 1.0 cm. No fistula tract was demonstrated." IMPRESSION: "Complex fluid collection containing air in the left thigh as described. No fistula is demonstrated." MICROBIOLOGY: 03/21/2021 Left Thigh Final Wound Culture: STAPHYLOCOCCUS SP COAG NEG 03/21/2021 Left Thigh Anaerobic Culture: PENDING 03/21/2021 Left Thigh Preliminary Would Culture: PSEUDOMONAS AERUGINOSA, CORYNEBACTERIUM SPECIES ASSESSMENT AND PLAN: Ms. Guevara is a 55-year-old female with a h/o RA, COPD (not O2 dependent), OA of right hip, hyperlipidemia, and sciatica of the right leg who presented on 03/21/2021 with a left thigh abscess and surrounding cellulitis and BLE pitting edema. Initial imaging was concerning for possible necrotizing fasciitis and patient was taken to the OR on 03/21 (Dr. Pool) for surgical debridement. Wound has been treated with wet-to-dry dressing prior to wound VAC being placed on 03/26. Wound cultures grew Pseudomonas, corynebacterium, Clostridium, Bacteroides, Staphylococcus coag negative species, with anaerobic culture growing anaerobic cocci and veillonella parvula. Patient received IV meropenem before being switched over to oral coverage on 03/27. #Left thigh abscess -Patient presented on 03/21 with proximal left lower extremity pain and tenderness and redness; imaging concerning for possible necrotizing fasciitis; patient taken for surgical debridement on 03/21 (Dr. Freitas). -White blood cell count continues to downtrend since incision and drainage. -I&D left thigh wound cultures grew coagulase-negative Staphylococcus species (probable skin contaminant per infectious disease), Pseudomonas aeruginosa, and corynebacterium species; final anaerobic culture resulted on 03/27 which grew anaerobic cocci and veillonella parrvula. -Patient was started on IV meropenem along with IV vancomycin on admission; per infectious disease, vancomycin was stopped on 03/25 (received 5 total days); IV meropenem was continued through morning of 03/27 (received 7 total days) before patient was switched over to oral levofloxacin and metronidazole per infectious disease recommendation. -Post 03/21 I&D, patient was getting wet-to-dry dressings and switched to a wound VAC per recommendation of general surgery on 03/26. -Current plan is to revisit state of wound on 03/29 with decision at that time for possible discharge. -Pain medication consisting of as needed Tylenol and as needed 5 mg every 6 hour oxycodone (moderate pain) and 2 tablets of 5 mg oxycodone (severe pain); IV morphine as needed was stopped on 03/27. -Hospitalist service appreciates the continued recommendations from both general surgery (Dr. Pool/Isabella Rutherford) and infectious disease (Dr. Raymundo). #Left lower extremity cellulitis, resolved -Throughout this past week on visual inspection, the area of erythema has significantly regressed and is all but resolved at this time. -Associated warmth of left lower extremity as compared to right lower extremity has resolved as well. -White count has down trended throughout the week since I&D -Culture results as described above -Antibiotic coverage as described above as patient was switched on morning of 03/27 to oral levofloxacin and metronidazole from intravenous meropenem #Lower extremity edema -Patient has had bilateral lower extremity pitting edema on examination throughout this week, more pronounced on the left. On 03/26 exam, patient also had calf tenderness but lower extremity ultrasound did not show any DVT; c/w heparin 3 times daily for DVT prophylaxis -One-time doses of Lasix 40 mg IV on 03/24 and 03/25; switch to 40 mg twice daily IV furosemide on 03/26 to continue through 03/27 with plan to stop on 03/28; creatinine bumped from 0.420.64 from ; C/W 20 mEq KCl daily. -Lung auscultation on 03/27 more clear than on prior days. -Echo on 03/22: 65% estimated EF, with "elevated central venous pressure" #Suprapubic discomfort, improved Patient reported earlier this week that this is a chronic intermittent symptom that started at the time of menopause; bladder scan did not show any significant post void residual retention Pelvic ultrasound on 03/26 showed possible endometrial cavitary nodule; patient has been instructed to follow-up with both her PCP and women's health/gynecology upon discharge for nodule and intermittent discomfort. #Reported history of COPD and active smoker -Patient is not O2 dependent at home and has not been in exacerbation on this admission She continues to saturate well on room air; home prn inhalers were continued upon admission but patient reports she has not needed them. -A 21 mg nicotine patch/24 hours prn has been ordered -Patient has been faithfully using bedside incentive spirometry that was ordered earlier during admission; lung sounds are clear on 03/27 exam compared to prior days. #Normocytic hypochromic anemia, stable -There have been no signs of active bleeding during this admission; stool occult negative; iron panel ordereddecreased TIBC and iron with elevated ferritin (this was most likely 2/2 anemia of inflammation during robust LLE abscess/inf ection. -Patient is taking folate for rheumatoid arthritis as outpatient #Active tobacco user -As needed nicotine patch has been ordered -History of smoking is limiting factor to wound healing #Pericardial effusion with no tamponade -This was an incidental finding on October 2020 CT with 03/22 echocardiogram describing it as "moderate" effusion without evidence of tamponade -Patient continues to deny chest pain, palpitations, or dyspnea on review of systems and there are no rubs appreciated on exam. -We have previously discussed during admission the patient should follow up with cardiology for outpatient monitoring of effusion. #History of rheumatoid arthritis Patient takes both methotrexate and folate as outpatient; these were held by admitting hospitalist service on admission. -She follows outpatient with [facility] rheumatology (Dr. Rosenbaum). #Right hip and knee osteoarthritis -Per patient, she is pending a right hip replacement -Pt has been counseled that she should be seen and evaluated by both cards (effusion & LE edema) and pulm (COPD hx). CODE STATUS: Full code Disposition: Patient was switched over to oral antibiotics on 03/27, with plan for switch to oral furosemide on 03/28, and wound continues to heal with wound VAC; as a result, patient was transition to alternate level of care (ALC) status. VS, I&O, 24H, Fishbone Vital Signs/I&O Vital Signs Date Time Temp Pulse Resp B/P (MAP) Pulse Ox O2 Delivery O2 Flow Rate FiO2 03/27/21 08:17 18 93 Room Air 03/27/21 08:00 98.4 102 113/58 (76) 03/26/21 15:59 2.0 96 I&O- Last 24 Hours up to 6 AM 03/27/21 06:00 Intake Total 1700 ml Output Total 2250 ml Balance -550 ml Laboratory Data 24H LABS Laboratory Tests 2 03/27/21 05:27: Neutrophils (%) (Auto) , Nucleated Red Blood Cells % (auto) 0.0, Neutrophils 49, Band Neutrophils 1, Lymphocytes (Manual) 36, Monocytes (Manual) 4, Eosinophils (Manual) 8H, Basophils (Manual) 1, Atypical Lymphocytes 1, Hypochromasia 1+, Anisocytosis 1+, Macrocytosis 1+, Platelet Estimate INCREASED, Clumped Platelets SMALL AMT, Anion Gap 8, Glomerular Filtration Rate > 60.0, Calcium Level 8.2L, Magnesium Level 2.1, Total Bilirubin 0.3, Aspartate Amino Transf (AST/SGOT) 10, Alanine Aminotransferase (ALT/SGPT) 9L, Alkaline Phosphatase 95, Total Protein 5.8L, Albumin 2.0L, Albumin/Globulin Ratio 0.5L CBC/BMP Laboratory Tests 03/27/21 05:27 Microbiology Microbiology 03/24/21 Stool Occult Blood (JERZY) - Final, Complete 03/21/21 Gram Stain - Final, Complete 03/21/21 Wound Culture - Final, Complete Staphylococcus Sp Coag Neg 03/21/21 Anaerobic Culture - Final, Complete Veillonella Parvula Anaerobic Cocci 03/21/21 Gram Stain - Final, Complete 03/21/21 Wound Culture - Final, Complete Pseudomonas Aeruginosa Corynebacterium Species Clostridium Species Bacteroides Ureolyticus 03/21/21 Blood Culture - Final, Complete NO GROWTH AFTER 5 DAYS 03/21/21 Blood Culture - Final, Complete NO GROWTH AFTER 5 DAYS GME ATTESTATION GME ATTESTATION My faculty preceptor for this patient encounter was physically present during the encounter and was fully available. All aspects of the patient interview, examination, medical decision making process, and medical care plan development were reviewed and approved by the faculty preceptor. The faculty preceptor is aware and concurs with the plan as stated in the body of this note and will attest to such by his/her cosignature. ATTENDING NOTE I, Perry Mcgarry, have independently examined this patient and performed my own physical exam, as well as reviewed the documentation and edited where necessary. I have discussed in detail with the resident / student the findings and plan of treatment as documented by the resident / student and edited their note. I agree with their findings and treatment plan and have edited their documentation. I will continue to follow the patient during this hospital stay. - Will start physical therapy and occupational therapy - Will continue with wound VAC - Awaiting surgical clearance - Antibiotics been adjusted to by mouth form - Will transition to ALC status BRANDY PARMAR D.O. Mar 27, 2021 10:33 PERRY MCGARRY MD Mar 27, 2021 13:04
[2021-03-27] MEDS: LevoFLOXacin 750 MG TABLET PO SCH (12:58)
[2021-03-27] MEDS: metroNIDAZOLE (FLAGYL) 500MG TABLET PO SCH ×2 (13:00→21:20)
[2021-03-27] MEDS: MAALOX 30 ML SUSP *UDC PO PRN (17:22)
[2021-03-27] MEDS: DULoxetine 30MG CAPSULE (CYMBALTA) PO SCH (20:40)
[2021-03-27] MEDS: traZODone 100 MG TAB PO SCH (20:40)
[2021-03-27] MEDS: lisinopriL 5 MG TAB PO SCH (20:41)
[2021-03-27] MEDS: ATORVASTATIN 10 MG TAB PO SCH (20:42)
[2021-03-28] MEDS: oxyCODONE 5MG TAB PO PRN ×3 (03:56→20:50)
[2021-03-28 04:35] VITALS: BP 113/57
[2021-03-28] MEDS: metroNIDAZOLE (FLAGYL) 500MG TABLET PO SCH ×3 (05:20→20:51)
[2021-03-28] MEDS: HEPARIN SOD (PORCINE) 5000UNITS/ML 1ML VIAL/SYRINGE SQ SCH ×3 (05:20→20:52)
[2021-03-28] MEDS: LevoFLOXacin 750 MG TABLET PO SCH (05:20)
[2021-03-28] MEDS: SLF 3 ML SYR IV SCH ×3 (05:21→20:52)
[2021-03-28 06:07] VITALS: BP 118/58
[2021-03-28 06:09] LABS: HEMATOCRIT 28.3 % (36.0-47.0); HEMOGLOBIN 8.9 g/dl (12.0-15.5); MEAN CORPUSCULAR HGB CONC 31.4 g/dl (32.0-36.5); MEAN CORPUSCULAR VOLUME 92.2 fl (80.0-96.0); PLATELET COUNT, AUTOMATED 441 10^3/uL (150-450); RED BLOOD COUNT 3.07 10^6/uL (4.00-5.40); WHITE BLOOD COUNT 10.2 10^3/uL (4.0-10.0)
[2021-03-28 06:36] LABS: ALBUMIN 2.2 GM/DL (3.2-5.2); ALT/SGPT 12 U/L (12-78); BILIRUBIN,TOTAL 0.2 MG/DL (0.2-1.0); BLOOD UREA NITROGEN 14 MG/DL (7-18); CALCIUM LEVEL 8.5 MG/DL (8.5-10.1); CARBON DIOXIDE LEVEL 31 MEQ/L (21-32); CHLORIDE LEVEL 101 MEQ/L (98-107); CREATININE FOR GFR 0.76 MG/DL (0.55-1.30); GLOMERULAR FILTRATION RATE > 60.0 (>51); GLUCOSE, FASTING 98 MG/DL (70-100); MAGNESIUM LEVEL 2.1 MG/DL (1.8-2.4); POTASSIUM SERUM 4.6 MEQ/L (3.5-5.1); SODIUM LEVEL 139 MEQ/L (136-145); TOTAL PROTEIN 6.2 GM/DL (6.4-8.2)
[2021-03-28 06:44] LABS: ANISOCYTOSIS 1+; ATYPICAL LYMPH 1 % (0-5); BASOPHILS 2 % (0-1); EOSINOPHILS 10 % (0-3); HYPOCHROMASIA 1+; LYMPHOCYTES 27 % (16-44); MONOCYTES 3 % (0-5); NEUTROPHILS 55 % (28-66); PLATELET CLUMPS SMALL AMT; PLATELET ESTIMATE NORMAL (NORMAL)
[2021-03-28] MEDS: SENOKOT S TAB PO SCH ×2 (08:28→20:49)
[2021-03-28] MEDS: POTASSIUM CHLORIDE 10MEQ SR TABLET PO SCH (08:29)
[2021-03-28] MEDS: NICOTINE 21MG/24HR 1 EA TRANSDERMAL TD PRN (08:32)
[2021-03-28] MEDS: ACETAMINOPHEN TAB 650MG DOSE (2X325MG) PO PRN (08:32)
[2021-03-28] MEDS ORDERED: FUROSEMIDE 40 MG TAB PO SCH (09:00)
[2021-03-28] MEDS: MOM 30ML SUSPENSION UDC PO PRN (11:46)
[2021-03-28] MEDS: MAALOX 30 ML SUSP *UDC PO PRN (11:51)
[2021-03-28 14:00] VITALS: BP 108/56
[2021-03-28] MEDS ORDERED: FUROSEMIDE 40 MG TAB PO ONE (19:00)
[2021-03-28] MEDS: CYCLOBENZAPRINE 10MG TABLET PO PRN (19:00)
[2021-03-28] MEDS: traZODone 100 MG TAB PO SCH (20:50)
[2021-03-28] MEDS: ATORVASTATIN 10 MG TAB PO SCH (20:51)
[2021-03-28] MEDS: DULoxetine 30MG CAPSULE (CYMBALTA) PO SCH (20:51)
[2021-03-28] MEDS: lisinopriL 5 MG TAB PO SCH (22:40)
[2021-03-29] MEDS: oxyCODONE 5MG TAB PO PRN ×3 (03:43→21:11)
[2021-03-29 05:49] VITALS: BP 100/60
[2021-03-29] MEDS: metroNIDAZOLE (FLAGYL) 500MG TABLET PO SCH ×3 (06:13→21:07)
[2021-03-29] MEDS: HEPARIN SOD (PORCINE) 5000UNITS/ML 1ML VIAL/SYRINGE SQ SCH ×3 (06:13→21:06)
[2021-03-29] MEDS: LevoFLOXacin 750 MG TABLET PO SCH (06:13)
[2021-03-29] MEDS: SLF 3 ML SYR IV SCH ×3 (06:14→21:09)
[2021-03-29 06:47] LABS: HEMATOCRIT 29.8 % (36.0-47.0); HEMOGLOBIN 9.3 g/dl (12.0-15.5); MEAN CORPUSCULAR HGB CONC 31.2 g/dl (32.0-36.5); MEAN CORPUSCULAR VOLUME 92.8 fl (80.0-96.0); PLATELET COUNT, AUTOMATED 491 10^3/uL (150-450); RED BLOOD COUNT 3.21 10^6/uL (4.00-5.40); WHITE BLOOD COUNT 10.9 10^3/uL (4.0-10.0)
[2021-03-29 07:14] LABS: ALBUMIN 2.6 GM/DL (3.2-5.2); ALT/SGPT 14 U/L (12-78); BILIRUBIN,TOTAL 0.3 MG/DL (0.2-1.0); BLOOD UREA NITROGEN 17 MG/DL (7-18); CALCIUM LEVEL 8.9 MG/DL (8.5-10.1); CARBON DIOXIDE LEVEL 28 MEQ/L (21-32); CHLORIDE LEVEL 101 MEQ/L (98-107); GLOMERULAR FILTRATION RATE > 60.0 (>51); GLUCOSE, FASTING 102 MG/DL (70-100); MAGNESIUM LEVEL 2.3 MG/DL (1.8-2.4); POTASSIUM SERUM 4.7 MEQ/L (3.5-5.1); SODIUM LEVEL 135 MEQ/L (136-145)
[2021-03-29 07:25] LABS: ATYPICAL LYMPH 4 % (0-5); EOSINOPHILS 3 % (0-3); LYMPHOCYTES 24 % (16-44); METAMYELOCYTES 1 % (0-0); MONOCYTES 3 % (0-5); NEUTROPHILS 65 % (28-66); PLATELET ESTIMATE INCREASED (NORMAL)
[2021-03-29 07:26] LABS: ANISOCYTOSIS 1+; POLYCHROMASIA 1+
[2021-03-29] MEDS: SENOKOT S TAB PO SCH ×2 (08:47→21:06)
--- NOTE | 2021-03-29 08:47 | IPNPDOC ---
Text Note Date of Service The patient was seen on 03/29/21. NOTE General surgery. Dr Pool The patient is a 55-year-old female with a left thigh abscess, status post I&D of abscess 03/21/2021, status post extensive debridement and excision of skin and subcutaneous tissue down to the fascia left upper thigh 03/21/[address] Pool. The patient states she has some aching and sharp pains intermittently from the wound VAC, this has been relieved with pain medications. The patient is afebrile VSS Awake and alert resting in bed Left thigh with wound VAC intact. Assessment/plan Left thigh abscess status post debridement. The patient is reviewed as per Dr Pool. Wound VAC is in place with plan to change Monday, Monday, Monday. Continue antibiotics as per hospitalist/infectious disease Continue to monitor VS,Fishbone, I+O VS, Fishbone, I+O Laboratory Tests 03/29/21 05:59 Vital Signs Date Time Temp Pulse Resp B/P (MAP) Pulse Ox O2 Delivery O2 Flow Rate FiO2 03/29/21 05:49 98.3 91 20 100/60 (73) 94 Room Air 03/26/21 15:59 2.0 96 I&O- Last 24 Hours up to 6 AM 03/29/21 06:00 Intake Total 750 ml Output Total 200 ml Balance 550 ml Isabella Rutherford Mar 29, 2021 08:47
[2021-03-29] MEDS: POTASSIUM CHLORIDE 10MEQ SR TABLET PO SCH (08:48)
[2021-03-29] MEDS: ACETAMINOPHEN TAB 650MG DOSE (2X325MG) PO PRN ×2 (08:55→23:30)
[2021-03-29] MEDS: CYCLOBENZAPRINE 10MG TABLET PO PRN (14:55)
[2021-03-29] MEDS ORDERED: IBUPROFEN 800 MG TAB PO ONE (16:20)
[2021-03-29] MEDS ORDERED: FLUCONAZOLE 50MG TABLET PO ONE (16:20)
[2021-03-29] MEDS: lisinopriL 5 MG TAB PO SCH (21:00)
[2021-03-29] MEDS: ATORVASTATIN 10 MG TAB PO SCH (21:06)
[2021-03-29] MEDS: DULoxetine 30MG CAPSULE (CYMBALTA) PO SCH (21:09)
[2021-03-29] MEDS: traZODone 100 MG TAB PO SCH (21:10)
[2021-03-30] MEDS: metroNIDAZOLE (FLAGYL) 500MG TABLET PO SCH ×3 (05:28→21:16)
[2021-03-30] MEDS: SLF 3 ML SYR IV SCH (05:28)
[2021-03-30] MEDS: LevoFLOXacin 750 MG TABLET PO SCH (05:28)
[2021-03-30] MEDS: oxyCODONE 5MG TAB PO PRN ×3 (05:29→20:35)
[2021-03-30] MEDS: HEPARIN SOD (PORCINE) 5000UNITS/ML 1ML VIAL/SYRINGE SQ SCH ×3 (05:29→21:16)
[2021-03-30 06:00] VITALS: BP 119/63
[2021-03-30] MEDS: CYCLOBENZAPRINE 10MG TABLET PO PRN (06:56)
--- NOTE | 2021-03-30 07:46 | REP ---
INDICATION: right wrist r/o abscess. The patient reports the lump on the back of the wrist has been present for 18 years. COMPARISON: None. TECHNIQUE: Targeted sonography right wrist. FINDINGS: Sonographic scanning of the area in question in the right posterior wrist demonstrates a solid-appearing mass superficial to the extensor tendons measuring 2.6 x 1.2 x 3.5 cm. IMPRESSION: The palpable lump in the back of the wrist is a solid appearing lesion sonographically superficial to the tendon sheath. Arthropathy associated pannus versus neoplastic etiologies. <Electronically signed by Bulmaro Patel > 03/30/21 0745
--- NOTE | 2021-03-30 07:52 | IPN ---
PROGRESS NOTE DATE: 03/29/2021 SUBJECTIVE: The patient was seen and examined this afternoon at bedside. She had just had her wound VAC dressing replaced. She states she did have some pain this morning when Dr. Pool examined her wound but is feeling better now. She has also noticed some redness and irritation between her legs. She has had worsening joint pains on staying in the hospital and her methotrexate has been on hold due to her acute infection. She denies fevers, chills, nausea, vomiting, diarrhea, abdominal pain. OBJECTIVE/PHYSICAL EXAMINATION: VITAL SIGNS: Temperature is 98.3 degrees Fahrenheit temporal. Heart rate 91. Respiratory rate 18. Blood pressure 100/60; satting 95% on room air. GENERAL: Patient appeared comfortable sitting in bed in no acute distress. HEENT: Normocephalic and atraumatic. Moist mucous membranes. CARDIAC: Regular rate and rhythm. Normal S1 and S2. No murmurs appreciated. LUNGS: Clear to auscultation bilaterally. No wheezing, rhonchi or rales. ABDOMEN: Soft, nontender, nondistended. Obese. Bowel sounds present. EXTREMITIES: There 2 plus edema of the left leg and 1 plus edema in the right leg up to the knees bilaterally. She has a wound VAC placed in the left upper groin. There is erythema over the right groin and fold. There is also a fluctuant mass on the right wrist. LABORATORY DATA: White blood cell count 10.9, hemoglobin 9.3, hematocrit 29.8, platelet count 491. No new cultures to report. ASSESSMENT AND PLAN: [id number] female who presented with wound to the left upper thigh; found to have skin and soft tissue infection with abscess now status post incision and drainage (I and D) with culture showing polymicrobial growth. 1. Skin and soft tissue abscess. The patient was switched to oral antibiotics with Flagyl and Levaquin over the weekend. The wound VAC is in place and, per nursing staff, the wound appears clean. The wound VAC is being managed by Dr. Pool. 2. Judy infection of the groin. Given the patient's wound VAC, would be concerned about using a topical nystatin here. I will give her one dose of Diflucan and monitor for improvement. 3. Rheumatoid arthritis. Likely, she is more symptomatic as she has been off her methotrexate due to her acute infection. Additionally, she has this mass on her right wrist which she states she has been told in the past is a rheumatoid nodule. This is more swollen than it has been in the past and looks more erythematous today. We will get an ultrasound to make sure that this is not a cyst. If it is a cyst, it can be drained in order to help prevent propagation of infection. 4. Lower extremity edema. Ultrasound was negative for deep vein thrombosis (DVT). Patient is on deep vein thrombosis (DVT) prophylaxis at this point.
[2021-03-30] MEDS: POTASSIUM CHLORIDE 10MEQ SR TABLET PO SCH (08:42)
[2021-03-30] MEDS: SENOKOT S TAB PO SCH ×2 (08:42→20:33)
--- NOTE | 2021-03-30 09:03 | IPNPDOC ---
Text Note Date of Service The patient was seen on 03/30/21. NOTE General surgery. Dr Pool The patient is a 55-year-old female with a left thigh abscess, status post I&D of abscess 03/21/2021, status post extensive debridement and excision of skin and subcutaneous tissue down to the fascia left upper thigh 03/21/[address] Pool. The patient is afebrile VSS Left thigh with wound VAC intact. Assessment/plan Left thigh abscess status post debridement. The patient is reviewed as per Dr Pool. Wound VAC is in place with plan to change Monday, Monday, Monday. At discharge, will discontinue the wound VAC and plan for wet-to-dry dressings daily Continue antibiotics as per hospitalist/infectious disease Continue to monitor VS,Fishbone, I+O VS, Fishbone, I+O Vital Signs Date Time Temp Pulse Resp B/P (MAP) Pulse Ox O2 Delivery O2 Flow Rate FiO2 03/30/21 06:00 97.2 82 16 119/63 (81) 99 Room Air 03/26/21 15:59 2.0 96 I&O- Last 24 Hours up to 6 AM 03/30/21 05:59 Intake Total 1400 ml Output Total 976 ml Balance 424 ml Isabella Rutherford Mar 30, 2021 09:03
[2021-03-30] MEDS: COMBIVENT RESPIMAT 100-20MCG INHALER 4GM INH PRN (11:20)
[2021-03-30] MEDS ORDERED: FLUCONAZOLE 50MG TABLET PO ONE (16:45)
[2021-03-30] MEDS ORDERED: METHOTREXATE 2.5 MG TAB (J8610 PER 2.5MG) PO SCH (17:00)
--- NOTE | 2021-03-30 17:16 | IPN ---
SURGICAL PROGRESS NOTE DATE: 03/29/2021 SUBJECTIVE: Patient overall seems to be doing well, still has some pain around the incision site/debridement site, but overall has had some slow, but progressive improvement of her activity level and the swelling in her leg is starting to go down. She is slowly feeling better. OBJECTIVE: The wound-VAC has been on over the weekend and we took it off today. There is much more granulation tissue present and somewhat a little bit macerated near the perineum, but otherwise it looks good and definitely much smaller in size than it was previously. There is no significant erythema and there is no necrotic debris in the base of this. IMPRESSION AND PLAN: Patient seems to be making some good progress. at this time my recommendation is that we continue with the wound-VAC while she is in the hospital; however, when she gets discharged to home there is no reason why she cannot do a wet-to-dry dressing change each day and then follow up with us as an outpatient.
[2021-03-30] MEDS: ACETAMINOPHEN TAB 650MG DOSE (2X325MG) PO PRN (18:15)
[2021-03-30] MEDS: DULoxetine 30MG CAPSULE (CYMBALTA) PO SCH (20:33)
[2021-03-30] MEDS: ATORVASTATIN 10 MG TAB PO SCH (20:33)
[2021-03-30] MEDS: traZODone 100 MG TAB PO SCH (20:34)
[2021-03-30] MEDS: lisinopriL 5 MG TAB PO SCH (20:39)
[2021-03-31] MEDS: oxyCODONE 5MG TAB PO PRN ×4 (03:49→23:59)
[2021-03-31] MEDS: CYCLOBENZAPRINE 10MG TABLET PO PRN ×2 (05:25→15:37)
[2021-03-31] MEDS: metroNIDAZOLE (FLAGYL) 500MG TABLET PO SCH ×3 (05:25→21:49)
[2021-03-31] MEDS: LevoFLOXacin 750 MG TABLET PO SCH (05:25)
[2021-03-31] MEDS: HEPARIN SOD (PORCINE) 5000UNITS/ML 1ML VIAL/SYRINGE SQ SCH ×3 (05:26→21:49)
[2021-03-31 06:00] VITALS: BP 120/55
[2021-03-31] MEDS ORDERED: METHOTREXATE 2.5 MG TAB (J8610 PER 2.5MG) PO SCH (09:00)
[2021-03-31] MEDS: SENOKOT S TAB PO SCH ×2 (10:34→20:14)
[2021-03-31] MEDS: POTASSIUM CHLORIDE 10MEQ SR TABLET PO SCH (10:35)
[2021-03-31] MEDS: ACETAMINOPHEN TAB 650MG DOSE (2X325MG) PO PRN (10:48)
--- NOTE | 2021-03-31 14:27 | CR ---
ADVANCED WOUND CARE CONSULTATION VIA TELEMEDICINE DATE: 03/31/2021 REQUESTING PHYSICIAN: Jannet Amor DO REASON FOR CONSULTATION: Wound care recommendations for left medial thigh wound. HISTORY OF PRESENT ILLNESS: This is a 55-year-old non-diabetic female, smoker, who developed a small area of induration and tenderness involving the left inner thigh on 03/18/2021. Patient attempted to squeeze the area with no results and noted over the next three days the wound area now worsening to a necrotic tender area. She was admitted on 03/21/2021 and taken to the Operating Room the same day. Wide debridement was performed for necrotizing fasciitis. The patient was placed on a Wound-Vac and is being covered by oral antibiotics at this time, Levaquin and Flagyl. The patient is afebrile, white count 10.9. Vital signs stable. The wound which is located on the medial aspect of her left thigh measures 14.5 cm x 10.0 cm with a wound depth of 3.0 cm. The wound base shows beginning granulation tissue with small areas of superficial fibrin sloth. The drainage is moderate serosanguinous. The wound edges show no evidence of ischemia, no undermining and no evidence of epiboly. TREATMENT RECOMMENDATIONS: Patient can continue with Wound-Vac therapy utilizing black foam run at 125 mmHg to be changed on a Monday, Monday and Monday basis. The patient should have a bridging to remove the track pad from the central portion of the wound removing it by bridging to the aston-wound. The wound should be cleansed with Vashe Wound Cleanser at the time of dressing change. The wound should be measured to see if it is decreasing in size and Wound-Vac therapy should be continued while the patient is in the hospital and as an outpatient. Follow-up at our wound care center as an outpatient can be arranged please send referral if the patient wishes to continue care with our clinic. Wound Care Telemedicine provides a visual assessment of a wound without the benefit of physical examination. It can assist with establishing a diagnosis and etiology. This allows for an initial treatment plan. As wounds often change, it may be necessary to modify the original care. Our recommendation is periodic wound reassessment to monitor treatment. Failure to comply may result in nonhealing of the wound, possible complications and/or poor outcome. The recommendations given will serve as treatment options. As I will not be following this patient, this care plan will require the attending physician to give and sign the orders. Upon discharge, outpatient follow-up can be scheduled at our Wound Care Center. ANGELA
[2021-03-31] MEDS: traZODone 100 MG TAB PO SCH (20:12)
[2021-03-31] MEDS: ATORVASTATIN 10 MG TAB PO SCH (20:12)
[2021-03-31] MEDS: DULoxetine 30MG CAPSULE (CYMBALTA) PO SCH (20:13)
[2021-03-31] MEDS: lisinopriL 5 MG TAB PO SCH (20:13)
[2021-03-31] MEDS: ANALGESIC BALM CRM 3OZ TOP SCH (20:15)
[2021-04-01] MEDS: CYCLOBENZAPRINE 10MG TABLET PO PRN
[2021-04-01] MEDS: ACETAMINOPHEN TAB 650MG DOSE (2X325MG) PO PRN ×2 (02:55→17:06)
[2021-04-01] MEDS: HEPARIN SOD (PORCINE) 5000UNITS/ML 1ML VIAL/SYRINGE SQ SCH ×3 (05:10→21:07)
[2021-04-01] MEDS: metroNIDAZOLE (FLAGYL) 500MG TABLET PO SCH ×3 (05:11→21:06)
[2021-04-01] MEDS: LevoFLOXacin 750 MG TABLET PO SCH (05:11)
[2021-04-01] MEDS: oxyCODONE 5MG TAB PO PRN ×3 (05:12→21:19)
[2021-04-01 06:00] VITALS: BP 106/52
[2021-04-01] MEDS: POTASSIUM CHLORIDE 10MEQ SR TABLET PO SCH (08:54)
[2021-04-01] MEDS: ANALGESIC BALM CRM 3OZ TOP SCH ×3 (09:00→21:00)
[2021-04-01] MEDS: SENOKOT S TAB PO SCH ×2 (09:00→21:06)
[2021-04-01] MEDS: NICOTINE 21MG/24HR 1 EA TRANSDERMAL TD PRN (09:19)
[2021-04-01] MEDS ORDERED: NYSTATIN 100,000 UNITS/GM TOPICAL PWD 15 GM TOP PRN (10:00)
[2021-04-01] MEDS: COMBIVENT RESPIMAT 100-20MCG INHALER 4GM INH PRN (11:54)
[2021-04-01] MEDS: lisinopriL 5 MG TAB PO SCH ×2 (21:00→21:07)
[2021-04-01] MEDS: ATORVASTATIN 10 MG TAB PO SCH (21:06)
[2021-04-01] MEDS: DULoxetine 30MG CAPSULE (CYMBALTA) PO SCH (21:06)
[2021-04-01] MEDS: traZODone 100 MG TAB PO SCH (21:06)
[2021-04-02] MEDS: CYCLOBENZAPRINE 10MG TABLET PO PRN (01:14)
[2021-04-02] MEDS: ACETAMINOPHEN TAB 650MG DOSE (2X325MG) PO PRN (01:14)
[2021-04-02] MEDS: LevoFLOXacin 750 MG TABLET PO SCH (05:29)
[2021-04-02] MEDS: metroNIDAZOLE (FLAGYL) 500MG TABLET PO SCH ×3 (05:29→21:01)
[2021-04-02] MEDS: HEPARIN SOD (PORCINE) 5000UNITS/ML 1ML VIAL/SYRINGE SQ SCH ×3 (05:29→21:02)
[2021-04-02 06:00] VITALS: BP 115/57
--- NOTE | 2021-04-02 09:08 | IPN ---
PROGRESS NOTE DATE: 03/30/2021 SUBJECTIVE: Patient is seen and examined this afternoon at bedside. She is resting comfortably in a chair. She states her joint pain did improve somewhat yesterday after the Ibuprofen dose. She has also noticed some improvement in the nodule on her right wrist. She states her leg swelling feels about the same. The irritation in her groin is slightly improved, but she notices some persistent itching. She denies any fevers, chills, nausea, vomiting, diarrhea or abdominal pain. OBJECTIVE: VITAL SIGNS: Temperature is 97.2 degrees Fahrenheit temporal, heart rate is 82, respiratory rate is 18, blood pressure is 119/63 satting 99% on room air. GENERAL: Patient appears comfortable sitting up in a chair in no acute distress. HEENT: Normocephalic, atraumatic. Moist mucous membranes. CARDIAC: Regular rate and rhythm. Normal S1 and S2. No murmurs appreciated. LUNGS: Clear to auscultation bilaterally. No wheezing, rhonchi or rales. ABDOMEN: Soft, nontender and nondistended, obese, bowel sounds are present. EXTREMITIES: 2+ pitting edema in the left leg and 1+ edema in the right leg up to the knees bilaterally. She has a Wound-Vac in place in the left upper groin. There is erythema over the right groin fold. There is also swelling on the right wrist which is slightly less swollen than yesterday. LABORATORY DATA: No new labs to review today. ASSESSMENT AND PLAN: A 55-year-old female who presented with a wound to the left upper thigh, found to have skin and soft tissue infection with abscess now status post incision and drainage with culture showing polymicrobial growth. 1. Skin and soft tissue abscess. Patient will continue on oral antibiotics with Flagyl and Levaquin. The Wound-Vac will stay in place at least while she is inpatient. She is currently waiting on her son who lives at home with her to be out of quarantine for his COVID-19 exposure. We will put in a consult for Dr. Mondragon to evaluate her wound and give recommendations for dressing when the Wound-Vac is removed on discharge. She can also then follow-up with him in his office for continued wound care. 2. Candidal infection of the groin. Patient has continued symptoms today after one dose of Diflucan yesterday. We will order a second dose of Diflucan today. 3. Rheumatoid arthritis. Discussed with Dr. Rosenbaum the patient's hamper maker machine. She had been scheduled today for an appointment which she missed because she is in the hospital. The patient will be seen for a follow-up in two weeks. We will also restart her Methotrexate which was held on admission. Rheumatology recommends continuing Methotrexate during acute infection. The ultrasound of her wrist confirms that it is most likely a rheumatoid nodule and is not a cyst. 4. Lower extremity edema. Ultrasound was negative for DVT. Patient is on DVT prophylaxis. I have also asked the nursing staff to bring in a recliner for her to use while sitting during the day to help prevent further dependent edema from accumulating. JAYED
[2021-04-02] MEDS: SENOKOT S TAB PO SCH ×2 (09:32→20:46)
[2021-04-02] MEDS: oxyCODONE 5MG TAB PO PRN ×2 (09:32→18:34)
[2021-04-02] MEDS: POTASSIUM CHLORIDE 10MEQ SR TABLET PO SCH (09:32)
[2021-04-02] MEDS: ANALGESIC BALM CRM 3OZ TOP SCH ×3 (09:33→20:46)
[2021-04-02] MEDS ORDERED: SODIUM CHLORIDE NASAL 0.65% SPRAY BTL (OCEAN) PRN (14:05)
[2021-04-02] MEDS: ATORVASTATIN 10 MG TAB PO SCH (20:42)
[2021-04-02] MEDS: traZODone 100 MG TAB PO SCH (20:42)
[2021-04-02] MEDS: DULoxetine 30MG CAPSULE (CYMBALTA) PO SCH (20:46)
[2021-04-02 20:50] VITALS: BP 104/60
[2021-04-02] MEDS: lisinopriL 5 MG TAB PO SCH (20:57)
[2021-04-03] MEDS: oxyCODONE 5MG TAB PO PRN ×4 (03:11→21:35)
[2021-04-03] MEDS: metroNIDAZOLE (FLAGYL) 500MG TABLET PO SCH ×3 (05:49→21:27)
[2021-04-03] MEDS: HEPARIN SOD (PORCINE) 5000UNITS/ML 1ML VIAL/SYRINGE SQ SCH ×3 (05:49→21:28)
[2021-04-03] MEDS: LevoFLOXacin 750 MG TABLET PO SCH (05:49)
[2021-04-03] MEDS: ACETAMINOPHEN TAB 650MG DOSE (2X325MG) PO PRN (05:51)
[2021-04-03 06:00] VITALS: BP 94/51
[2021-04-03 06:15] VITALS: BP 106/70
[2021-04-03] MEDS: SENOKOT S TAB PO SCH ×2 (08:37→21:27)
[2021-04-03] MEDS: POTASSIUM CHLORIDE 10MEQ SR TABLET PO SCH (08:37)
[2021-04-03] MEDS: ANALGESIC BALM CRM 3OZ TOP SCH ×3 (08:37→21:00)
[2021-04-03] MEDS: lisinopriL 5 MG TAB PO SCH (21:00)
[2021-04-03 21:26] VITALS: BP 94/56
[2021-04-03] MEDS: traZODone 100 MG TAB PO SCH (21:27)
[2021-04-03] MEDS: ATORVASTATIN 10 MG TAB PO SCH (21:27)
[2021-04-03] MEDS: DULoxetine 30MG CAPSULE (CYMBALTA) PO SCH (21:28)
[2021-04-03] MEDS: MAALOX 30 ML SUSP *UDC PO PRN (23:08)
[2021-04-04] MEDS: HEPARIN SOD (PORCINE) 5000UNITS/ML 1ML VIAL/SYRINGE SQ SCH ×3 (05:07→21:19)
[2021-04-04] MEDS: metroNIDAZOLE (FLAGYL) 500MG TABLET PO SCH ×3 (05:08→21:18)
[2021-04-04] MEDS: oxyCODONE 5MG TAB PO PRN ×3 (05:08→21:21)
[2021-04-04] MEDS: LevoFLOXacin 750 MG TABLET PO SCH (05:08)
[2021-04-04 06:00] VITALS: BP 121/61
[2021-04-04] MEDS: SENOKOT S TAB PO SCH ×2 (08:18→21:15)
[2021-04-04] MEDS: POTASSIUM CHLORIDE 10MEQ SR TABLET PO SCH (08:18)
[2021-04-04] MEDS: ANALGESIC BALM CRM 3OZ TOP SCH ×3 (08:19→21:00)
[2021-04-04 21:00] VITALS: BP 104/68
[2021-04-04] MEDS: lisinopriL 5 MG TAB PO SCH (21:00)
[2021-04-04] MEDS: DULoxetine 30MG CAPSULE (CYMBALTA) PO SCH (21:14)
[2021-04-04] MEDS: ATORVASTATIN 10 MG TAB PO SCH (21:14)
[2021-04-04] MEDS: traZODone 100 MG TAB PO SCH (21:19)
[2021-04-05] MEDS: ACETAMINOPHEN TAB 650MG DOSE (2X325MG) PO PRN ×2 (01:48→09:32)
[2021-04-05] MEDS: oxyCODONE 5MG TAB PO PRN ×2 (02:54→09:33)
[2021-04-05] MEDS: LevoFLOXacin 750 MG TABLET PO SCH (05:48)
[2021-04-05] MEDS: metroNIDAZOLE (FLAGYL) 500MG TABLET PO SCH (05:48)
[2021-04-05] MEDS: HEPARIN SOD (PORCINE) 5000UNITS/ML 1ML VIAL/SYRINGE SQ SCH (05:49)
[2021-04-05 06:00] VITALS: BP 111/56
[2021-04-05] MEDS: SENOKOT S TAB PO SCH (08:25)
[2021-04-05] MEDS: POTASSIUM CHLORIDE 10MEQ SR TABLET PO SCH (08:25)
[2021-04-05] MEDS: ANALGESIC BALM CRM 3OZ TOP SCH (08:26)
--- NOTE | 2021-04-05 14:33 | DS.PDOC ---
Discharge Summary General Date of Admission Mar 21, 2021 at 13:05 Date of Discharge 04/05/2021 Attending Physician: ANDERS KRISHNAN MD Discharge Summary PROCEDURES PERFORMED DURING STAY: Status post I&D of abscess 03/21/2021, status post extensive debridement and excision of skin and subcutaneous tissue down to the fascia left upper thigh 03/21/[address] oPol. ADMITTING DIAGNOSES: Presumed necrotizing fasciitis DISCHARGE DIAGNOSES: Left thigh cellulitis w/ abscess s/p status post incision and drainage Rheumatoid arthritis, follows with Dr. Rosenbaum. Currently on methotrexate. COPD not oxygen dependent Hypertension Osteoarthritis of right hip Hyperlipidemia Sciatica of the right leg Tobacco abuse. Anemia COMPLICATIONS/CHIEF COMPLAINT: Necrotizing Fasciitis. HISTORY OF PRESENT ILLNESS: 55-year-old W, smoker,who developed a small area of induration and tenderness involving the left inner thigh on 03/18/2021.She reported attempt to squeeze the area with no results and noted over the next three days the wound area developed a worsening necrotic tender area and therefore presented to the ED. HOSPITAL COURSE: She has a history of rheumatoid arthritis presently methotrexate, COPD not O2 dependent, OA of the right hip following with Ortho, hyperlipidemia and sciatica of the right leg. In the ED she had a large 15 cm swelling on the anterior aspect of L thigh with firmness surrounded by an area of erythema. She was afebrile but had a leukocytosis of 18.7. Hemoglobin 8.5. Lactic acid is 1.5. Dr. Pool was consulted from the ER who found necrotic tissue on dissection with concern for necrotizing fasciitis. She was admitted on 03/21/2021 and taken to the Operating Room on the same day and had wide debridement and she was placed on a Wound-Vac. On presentation she had been started on vac/meropenem and clindamycin that were eventually switched to Levaquin and Flagyl PO by ID and completed a 15d course of antibiotics. Of note the cultures were positive for Pseudomonas and anaerobes. Staphylococcus coag negative was probably a skin contaminant. She had wound care e-consult with Dr. Mondragon and is now being discharged home w/ services with a wound vac with plan for close PCP, wound care and surgery follow up. DISCHARGE MEDICATIONS: Please see below. ALLERGIES: Please see below. PHYSICAL EXAMINATION ON DISCHARGE: VITAL SIGNS: Please see below. GENERAL: Pleasant in NAD. HEENT: Normocephalic, atraumatic. Noninjected sclera. Wearing eyeglasses. Oral cavity: No pharyngeal erythema or exudate appreciated. MMM. Neck: No significant JVD appreciated. Trachea midline. CARDIOVASCULAR: Regular rate, regular rhythm. Normal S1, S2. No murmurs or rubs appreciated. RESPIRATORY: CTAB ABDOMINAL: Soft, nontender and nondistended. EXTREMITIES: Wound VAC in place over her proximal left lower extremity wound with minimal amount of serosanguineous discharge in the suction tube. There is no erythema, induration, or warmth surrounding the wound nor is there any significant erythema or warmth over the left lower extremity. There is bilateral lower extremity pitting edema approximately 1-2+, greater on the left lower extremity. NEUROLOGICAL: No gross focal neurologic deficits appreciated. PSYCHOLOGICAL: Mood and affect appear appropriate. LABORATORY DATA: Please see below. IMAGIN03/26/2021 Pelvic US Findings: "The uterus measures 6.1 x 3.2 x 5 cm. There is uterine echo pattern heterogenous without evidence of a mass. The endometrial echo complex measures 3 mm in its greatest thickness, however, within the fundal portion there is a 5.8 x 1.8 x 5.9 mm sized potential echogenic nodule. The right ovary measures 2.6 x 2 x 2.6 cm and is within normal limits. Left ovary measures 2.2 x 1.8 x 2.5 cm and is within normal limits. Urinary bladder measures 13 x 8 x 9 cm." Impression: "Possible endometrial cavitary nodule as described above. Neoplastic change cannot be ruled out. Clinical correlation and follow-up is recommended. If necessary obtain pre and post gadolinium enhanced pelvic MRI." 03/26/2021 LLE Duplex US Impression: "No evidence of deep venous thrombosis of the visualized left lower extremity femoral popliteal venous system.No thrombus in the visualized left peroneal and posterior tibial veins." 03/22/2021 Echocardiogram Comments: "Moderate size pericardial effusion measuring 2.2 cm at the base of the heart posteriorly but otherwise other segments measured 1.0 cm. There was a slight degree of right atrial free wall inversion but otherwise no sign of cardiac chamber compression. There was no significant fluctuation in Doppler flow signals to suggest cardiac compression. Normal IV size and collapse is also against cardiac tamponade." 03/21/2021 Chest X-ray Impression: "1. Emphysema. 2. Cardiomegaly. 3. No evidence of acute cardiopulmonary pathology. No significant change." 03/21/2021 Left Lower Extremity Vascular US Impression: "No evidence of deep venous thrombosis of the left lower extremity." 03/21/2021 Left Lower Extremity US: FINDINGS: "The area of redness swelling and drainage in the left posteromedial a spect of the left thigh, proximally, demonstrates a complex fluid collection containing air bubbles measuring 3.1 x 1.6 x 1.0 cm. No fistula tract was demonstrated." IMPRESSION: "Complex fluid collection containing air in the left thigh as described. No fistula is demonstrated." PROGNOSIS: Good ACTIVITY: As tolerated DIET: Regular DISCHARGE PLAN: Home with wound vac and services. Close PCP, surgery and wound care clinic follow up DISPOSITION: 01 Home, Self-Care. DISCHARGE INSTRUCTIONS: Home with wound vac and services. Close PCP, surgery and wound care clinic follow up ITEMS TO FOLLOWUP ON ON OUTPATIENT: L anterior thigh wound with wound vac in place. DISCHARGE CONDITION: Stable TIME SPENT ON DISCHARGE: 45 minutes. Vital Signs/I&Os Vital Signs Date Time Temp Pulse Resp B/P (MAP) Pulse Ox O2 Delivery O2 Flow Rate FiO2 04/05/21 10:03 18 97 04/05/21 06:00 97.6 80 111/56 (74) Room Air I&O- Last 24 Hours up to 6 AM 04/05/21 05:59 Intake Total 1980 ml Output Total 400 ml Balance 1580 ml Discharge Medications Scheduled Aspirin (Aspirin) 81 Mg Tab.chew, 81 MG PO QHS, (Reported) Atorvastatin Calcium (Atorvastatin Calcium) 10 Mg Tablet, 10 MG PO QHS, (Reported) Duloxetine Hcl (Duloxetine HCl) 30 Mg Capsule.dr, 30 MG PO QHS, (Reported) Ergocalciferol (Vitamin D2) (Vitamin D2) 50,000 Units Cap, 50,000 UNITS PO QWEEK, (Reported) Monday Lisinopril (Lisinopril) 5 Mg Tablet, 5 MG PO QHS, (Reported) Methotrexate Sodium (Methotrexate) 2.5 Mg Tablet, 20 MG PO QWEEK, (Reported) FRIDAYS: 10MG QAM, 10MG QHS Tizanidine HCl (Tizanidine HCl) 2 Mg Tablet, 2 MG PO TID, (Reported) Trazodone HCl (Trazodone HCl) 100 Mg Tablet, 100 MG PO QHS, (Reported) buprenorphine HCL (buprenorphine HCL) 150 Mcg Film, 150 MCG BC BID, (Reported) Scheduled PRN Ipratropium/Albuterol Sulfate (Combivent Respimat 20-100 Mcg) 4 Gm Mist.inhal, 1 PUFF INH QID PRN for SHORTNESS OF BREATH, (Reported) Oxycodone HCl (Oxycodone HCl) 5 Mg Tablet, 5 MG PO BID PRN for SEVERE PAIN (PS 8-10), (Reported) Tramadol HCl (Tramadol HCl) 50 Mg Tablet, 100 MG PO TID PRN for MODERATE PAIN (PS 5-7), (Reported) Allergies Coded Allergies: Penicillins (Verified Allergy, Severe, dyspnea, 09/10/19) celecoxib (Verified Allergy, Unknown, hives, 05/25/20) penicillin V (Verified Allergy, Unknown, 09/10/19) naproxen (Verified Adverse Reaction, Intermediate, UPSET STOMACH, VOMITING, 02/12/21) ANDERS KRISHNAN MD Apr 05, 2021 14:33
== END 2021-04-05 13:25 | disposition home health service (06) | DRG 317 ==
LOC: M ED 10:12 → UNDOADMIN 11:21 → M ED INP 11:21 → ENRESERV 13:30 → M PCU 16:45 → M MSPAV 03-28 04:23
PROVIDERS: ADMIT Family Medicine; ATTEND Internal Medicine
PROC: 0J9M0ZZ Drainage of Left Upper Leg Subcutaneous Tissue and Fascia, Open Approach (ICD-10-PCS; 2021-03-21)
PROC: 0JBM0ZZ Excision of Left Upper Leg Subcutaneous Tissue and Fascia, Open Approach (ICD-10-PCS; principal; 2021-03-21 13:14)
DX: M72.6 Necrotizing fasciitis (principal); L02.416 Cutaneous abscess of left lower limb; I10 Essential (primary) hypertension; L03.116 Cellulitis of left lower limb; J44.9 Chronic obstructive pulmonary disease, unspecified; M06.9 Rheumatoid arthritis, unspecified; M16.11 Unilateral primary osteoarthritis, right hip; E78.5 Hyperlipidemia, unspecified; F17.210 Nicotine dependence, cigarettes, uncomplicated; Z90.49 Acquired absence of other specified parts of digestive tract; D64.9 Anemia, unspecified; Z20.822 Contact with and (suspected) exposure to COVID-19; Z79.82 Long term (current) use of aspirin; Z79.899 Other long term (current) drug therapy; Z88.0 Allergy status to penicillin; Z88.1 Allergy status to other antibiotic agents; Z88.8 Allergy status to other drugs, medicaments and biological substances; K59.00 Constipation, unspecified; R60.0 Localized edema

== ENCOUNTER → 2021-05-26 | Outpatient (CLI) | payer OTHER ==
[~2021-05-26] MED LIST changes: -LISI-898 PO; +LISI5TAB11 PO; +[UNRECOGNIZED DRUG - CODE] BC
== END ==
LOC: M PAIN 10:30
PROVIDERS: ATTEND Nurse Practitioner Family
DX: M06.9 Rheumatoid arthritis, unspecified (principal); G89.29 Other chronic pain; J44.9 Chronic obstructive pulmonary disease, unspecified; M79.7 Fibromyalgia; F17.210 Nicotine dependence, cigarettes, uncomplicated; Z86.59 Personal history of other mental and behavioral disorders; Z88.0 Allergy status to penicillin; Z88.8 Allergy status to other drugs, medicaments and biological substances; Z91.030 Bee allergy status; Z79.82 Long term (current) use of aspirin; Z79.899 Other long term (current) drug therapy

== ENCOUNTER → 2021-08-12 | Outpatient (CLI) | payer OTHER | LOC: M PAIN 10:00 | PROVIDERS: ATTEND Nurse Practitioner Family | DX: M06.9 Rheumatoid arthritis, unspecified (principal); G89.29 Other chronic pain; J44.9 Chronic obstructive pulmonary disease, unspecified; M79.7 Fibromyalgia; F17.210 Nicotine dependence, cigarettes, uncomplicated; Z86.14 Personal history of Methicillin resistant Staphylococcus aureus infection; Z86.59 Personal history of other mental and behavioral disorders; Z88.0 Allergy status to penicillin; Z88.8 Allergy status to other drugs, medicaments and biological substances; Z91.030 Bee allergy status; Z79.82 Long term (current) use of aspirin; Z79.891 Long term (current) use of opiate analgesic; Z79.899 Other long term (current) drug therapy ==

== ENCOUNTER → 2021-10-12 | Outpatient (REF) | payer OTHER ==
[2021-10-12 16:59] LABS: BASO # 0.1 10^3/uL (0.0-0.2); BASO % 0.9 % (0.0-1.0); EOS # 0.3 10^3/uL (0.0-0.5); EOS % 2.4 % (0.0-3.0); HEMATOCRIT 42.1 % (36.0-47.0); HEMOGLOBIN 13.7 g/dl (12.0-15.5); LYMPH # 3.3 10^3/uL (1.5-5.0); LYMPH % 27.6 % (24.0-44.0); MEAN CORPUSCULAR HEMOGLOBIN 31.9 pg (27.0-33.0); MEAN CORPUSCULAR HGB CONC 32.5 g/dl (32.0-36.5); MEAN CORPUSCULAR VOLUME 97.9 fl (80.0-96.0); MONO # 0.5 10^3/uL (0.0-0.8); MONO % 3.8 % (2.0-8.0); NEUTROPHILS # 7.7 10^3/uL (1.5-8.5); NEUTROPHILS % 64.9 % (36.0-66.0); PLATELET COUNT, AUTOMATED 426 10^3/uL (150-450); WHITE BLOOD COUNT 11.8 10^3/uL (4.0-10.0)
[2021-10-12 17:25] LABS: ERYTHROCYTE SEDIMENTATION RATE 32 mm/hr (0-30)
[2021-10-12 17:46] LABS: ALT/SGPT 19 U/L (12-78); BILIRUBIN,TOTAL 0.4 MG/DL (0.2-1.0); BLOOD UREA NITROGEN 14 MG/DL (7-18); C REACTIVE PROTEIN QUANTITATIV 0.69 MG/DL (0.00-0.30); CALCIUM LEVEL 9.5 MG/DL (8.5-10.1); CARBON DIOXIDE LEVEL 27 MEQ/L (21-32); CHLORIDE LEVEL 106 MEQ/L (98-107); CREATININE FOR GFR 0.86 MG/DL (0.55-1.30); GLOMERULAR FILTRATION RATE > 60.0 (>51); GLUCOSE, FASTING 85 MG/DL (70-100); POTASSIUM SERUM 5.4 MEQ/L (3.5-5.1); SODIUM LEVEL 139 MEQ/L (136-145); TOTAL PROTEIN 7.7 GM/DL (6.4-8.2)
== END ==
LOC: M SFHCRHEU 11:50
PROVIDERS: ATTEND Internal Medicine Rheumatology
DX: M05.79 Rheumatoid arthritis with rheumatoid factor of multiple sites without organ or systems involvement (principal); M89.49 Other hypertrophic osteoarthropathy, multiple sites; H04.129 Dry eye syndrome of unspecified lacrimal gland; I31.3 Pericardial effusion (noninflammatory); F17.210 Nicotine dependence, cigarettes, uncomplicated; Z79.899 Other long term (current) drug therapy

== ENCOUNTER → 2021-10-14 | Outpatient (CLI) | payer OTHER | LOC: M PAIN 14:45 | PROVIDERS: ATTEND Nurse Practitioner Family | DX: M12.9 Arthropathy, unspecified (principal); J44.9 Chronic obstructive pulmonary disease, unspecified; I10 Essential (primary) hypertension; F32.A Depression, unspecified; E78.5 Hyperlipidemia, unspecified; M54.31 Sciatica, right side; M79.7 Fibromyalgia; F17.210 Nicotine dependence, cigarettes, uncomplicated; Z79.82 Long term (current) use of aspirin; Z79.891 Long term (current) use of opiate analgesic; Z79.899 Other long term (current) drug therapy; Z88.0 Allergy status to penicillin; Z88.8 Allergy status to other drugs, medicaments and biological substances; Z91.030 Bee allergy status ==

== ENCOUNTER → 2022-04-19 | Outpatient (CLI) | payer OTHER | LOC: M PAIN 15:15 | PROVIDERS: ATTEND Nurse Practitioner Family | DX: Z51.81 Encounter for therapeutic drug level monitoring (principal); Z79.891 Long term (current) use of opiate analgesic; M06.9 Rheumatoid arthritis, unspecified; I10 Essential (primary) hypertension; J44.9 Chronic obstructive pulmonary disease, unspecified; F32.A Depression, unspecified; M54.31 Sciatica, right side; M79.7 Fibromyalgia; Z87.440 Personal history of urinary (tract) infections; G89.29 Other chronic pain; F17.210 Nicotine dependence, cigarettes, uncomplicated; Z79.82 Long term (current) use of aspirin; Z79.899 Other long term (current) drug therapy; Z88.0 Allergy status to penicillin; Z88.8 Allergy status to other drugs, medicaments and biological substances; Z91.030 Bee allergy status ==

== ENCOUNTER → 2022-08-23 | Outpatient (REF) | payer OTHER, MEDICARE ==
[2022-08-23 17:31] LABS: BASO # 0.1 10^3/uL (0.0-0.2); EOS # 0.6 10^3/uL (0.0-0.5); HEMATOCRIT 41.2 % (36.0-47.0); HEMOGLOBIN 13.3 g/dl (12.0-15.5); LYMPH # 3.9 10^3/uL (1.5-5.0); LYMPH % 36.2 % (24.0-44.0); MEAN CORPUSCULAR HEMOGLOBIN 30.7 pg (27.0-33.0); MEAN CORPUSCULAR HGB CONC 32.3 g/dl (32.0-36.5); MEAN CORPUSCULAR VOLUME 95.2 fl (80.0-96.0); MONO # 0.6 10^3/uL (0.0-0.8); MONO % 5.4 % (2.0-8.0); NEUTROPHILS # 5.5 10^3/uL (1.5-8.5); NEUTROPHILS % 51.1 % (36.0-66.0); PLATELET COUNT, AUTOMATED 354 10^3/uL (150-450); RED BLOOD COUNT 4.33 10^6/uL (4.00-5.40); WHITE BLOOD COUNT 10.7 10^3/uL (4.0-10.0)
[2022-08-23 18:36] LABS: ALBUMIN 3.9 G/DL (3.2-5.2); ALKALINE PHOSPHATASE 99 U/L (46-116); ALT/SGPT 17 U/L (7.0-40); AST/SGOT 15 U/L (<34); BLOOD UREA NITROGEN 15 MG/DL (9-23); CALCIUM LEVEL 9.5 MG/DL (8.5-10.1); CARBON DIOXIDE LEVEL 27 MMOL/L (20-31); CHLORIDE LEVEL 102 MMOL/L (98-107); CHOLESTEROL LEVEL 158 MG/DL (<200); CHOLESTEROL RISK RATIO 3.66 (<5); FOLATE 6.3 NG/ML (>5.4); GLUCOSE, FASTING 83 MG/DL (60-100); HDL CHOLESTEROL 43.1 MG/DL (>40); NON-HDL-C 115 MG/DL; POTASSIUM SERUM 4.9 MMOL/L (3.5-5.1); SODIUM LEVEL 136 MMOL/L (136-145); THYROID STIMULATING HORMONE 4.167 uIU/ML (0.55-4.78); TOTAL 25(OH) VITAMIN D 30.2 NG/ML (20.0-100.0)
[2022-08-23 18:39] LABS: APPEARANCE, URINE HAZY (CLEAR); BACTERIA, URINE AUTO NEGATIVE (NEGATIVE); BILIRUBIN, URINE AUTO NEGATIVE (NEGATIVE); BLOOD, URINE BLOOD NEGATIVE (NEGATIVE); COLOR, URINE YELLOW (YELLOW); GLUCOSE, URINE (UA) AUTO NEGATIVE (NEGATIVE); KETONE, URINE AUTO NEGATIVE (NEGATIVE); LEUKOCYTE ESTERASE, URINE AUTO 1+ (NEGATIVE); NITRITE, URINE AUTO NEGATIVE (NEGATIVE); PROTEIN, URINE AUTO NEGATIVE (NEGATIVE); RBC, URINE AUTO 0 /HPF (0-3); SPECIFIC GRAVITY URINE AUTO 1.014 (1.002-1.035); SQUAMOUS EPITHELIAL CELL UR AU 1 /HPF (0-6); UROBILINOGEN, URINE AUTO 0.2 mg/dL (0.0-2.0); WBC, URINE AUTO 5 /HPF (0-3)
[2022-08-23 19:17] LABS: BILIRUBIN,TOTAL 0.2 MG/DL (0.3-1.2); LDL CHOLESTEROL 80.9 MG/DL (<100); TOTAL PROTEIN 7.5 G/DL (5.7-8.2); TRIGLYCERIDES LEVEL 170 MG/DL (<150); VITAMIN B12 LEVEL 390 PG/ML (211-911)
[2022-08-23 19:59] LABS: CREATININE FOR GFR 0.83 MG/DL (0.55-1.30); GLOMERULAR FILTRATION RATE > 60.0 (>51)
== END ==
LOC: M SHH 16:53
PROVIDERS: ATTEND Physician Assistant
DX: E78.2 Mixed hyperlipidemia (principal); E55.9 Vitamin D deficiency, unspecified; E53.8 Deficiency of other specified B group vitamins; R30.0 Dysuria

== ENCOUNTER → 2022-09-02 | Outpatient (CLI) | payer MEDICARE, OTHER | LOC: M PAIN 15:15 | PROVIDERS: ATTEND Nurse Practitioner Family | DX: M12.9 Arthropathy, unspecified (principal); M79.10 Myalgia, unspecified site; G89.29 Other chronic pain; J44.9 Chronic obstructive pulmonary disease, unspecified; I10 Essential (primary) hypertension; F17.210 Nicotine dependence, cigarettes, uncomplicated; Z86.14 Personal history of Methicillin resistant Staphylococcus aureus infection; Z86.59 Personal history of other mental and behavioral disorders; Z88.0 Allergy status to penicillin; Z88.8 Allergy status to other drugs, medicaments and biological substances; Z91.030 Bee allergy status; Z79.82 Long term (current) use of aspirin; Z79.899 Other long term (current) drug therapy ==

== ENCOUNTER → 2022-09-19 | Outpatient (CLI) | payer MEDICARE, OTHER | LOC: M PAIN 14:45 | PROVIDERS: ATTEND Nurse Practitioner Family | DX: M12.9 Arthropathy, unspecified (principal); J44.9 Chronic obstructive pulmonary disease, unspecified; I10 Essential (primary) hypertension; F32.A Depression, unspecified; E78.5 Hyperlipidemia, unspecified; M79.7 Fibromyalgia; F17.210 Nicotine dependence, cigarettes, uncomplicated; Z79.891 Long term (current) use of opiate analgesic; Z79.899 Other long term (current) drug therapy; Z88.0 Allergy status to penicillin; Z88.8 Allergy status to other drugs, medicaments and biological substances; Z91.030 Bee allergy status ==

== ENCOUNTER → 2023-04-03 | Outpatient (CLI) | payer MEDICARE, OTHER ==
[~2023-04-03] MED LIST changes: +ASPI-655 PO; -ASPI1CHW3 PO
== END ==
LOC: M PAIN 14:00
PROVIDERS: ATTEND Nurse Practitioner Family
DX: M06.9 Rheumatoid arthritis, unspecified (principal); M16.11 Unilateral primary osteoarthritis, right hip; G89.29 Other chronic pain; F17.210 Nicotine dependence, cigarettes, uncomplicated; Z80.1 Family history of malignant neoplasm of trachea, bronchus and lung; Z80.51 Family history of malignant neoplasm of kidney; Z88.0 Allergy status to penicillin; Z88.8 Allergy status to other drugs, medicaments and biological substances; Z91.030 Bee allergy status; Z79.82 Long term (current) use of aspirin; Z79.891 Long term (current) use of opiate analgesic; Z79.899 Other long term (current) drug therapy

== ENCOUNTER → 2023-07-25 | Outpatient (CLI) | payer MEDICARE, MEDICAID | LOC: M PAIN 15:30 | PROVIDERS: ATTEND Nurse Practitioner Family | DX: G89.29 Other chronic pain (principal); M06.9 Rheumatoid arthritis, unspecified; Z79.891 Long term (current) use of opiate analgesic; M16.11 Unilateral primary osteoarthritis, right hip; J44.9 Chronic obstructive pulmonary disease, unspecified; I10 Essential (primary) hypertension; F32.A Depression, unspecified; E78.5 Hyperlipidemia, unspecified; M79.7 Fibromyalgia; F17.210 Nicotine dependence, cigarettes, uncomplicated; Z79.82 Long term (current) use of aspirin; Z79.899 Other long term (current) drug therapy; Z88.0 Allergy status to penicillin; Z88.8 Allergy status to other drugs, medicaments and biological substances; Z91.030 Bee allergy status ==

== ENCOUNTER → 2023-08-10 | Outpatient (REF) | payer MEDICARE, MEDICAID ==
[2023-08-10 18:12] LABS: BASO # 0.1 10^3/uL (0.0-0.2); BASO % 0.6 % (0.0-1.0); EOS # 0.2 10^3/uL (0.0-0.5); EOS % 1.7 % (0.0-3.0); HEMATOCRIT 40.4 % (36.0-47.0); HEMOGLOBIN 13.3 g/dl (12.0-15.5); LYMPH # 3.2 10^3/uL (1.5-5.0); LYMPH % 29.3 % (24.0-44.0); MEAN CORPUSCULAR HEMOGLOBIN 31.4 pg (27.0-33.0); MEAN CORPUSCULAR HGB CONC 32.9 g/dl (32.0-36.5); MEAN CORPUSCULAR VOLUME 95.5 fl (80.0-96.0); MONO # 0.6 10^3/uL (0.0-0.8); MONO % 5.3 % (2.0-8.0); NEUTROPHILS # 6.8 10^3/uL (1.5-8.5); NEUTROPHILS % 62.6 % (36.0-66.0); PLATELET COUNT, AUTOMATED 327 10^3/uL (150-450); RED BLOOD COUNT 4.23 10^6/uL (4.00-5.40); WHITE BLOOD COUNT 10.9 10^3/uL (4.0-10.0)
[2023-08-10 18:41] LABS: THYROID STIMULATING HORMONE 1.837 uIU/ML (0.55-4.78); TOTAL 25(OH) VITAMIN D 37.1 NG/ML (20.0-100.0)
[2023-08-10 18:42] LABS: ALBUMIN 3.7 G/DL (3.2-5.2); ALKALINE PHOSPHATASE 96 U/L (46-116); ALT/SGPT 18 U/L (7.0-40); AST/SGOT < 8 U/L (<34); BILIRUBIN,TOTAL 0.4 MG/DL (0.3-1.2); BLOOD UREA NITROGEN 15 MG/DL (9-23); CALCIUM LEVEL 9.3 MG/DL (8.5-10.1); CARBON DIOXIDE LEVEL 26 MMOL/L (20-31); CHLORIDE LEVEL 107 MMOL/L (98-107); CHOLESTEROL LEVEL 167 MG/DL (<200); CHOLESTEROL RISK RATIO 4.08 (<5); CREATININE FOR GFR 0.72 MG/DL (0.55-1.30); GLOMERULAR FILTRATION RATE > 60.0 (>51); GLUCOSE, FASTING 98 MG/DL (60-100); HDL CHOLESTEROL 40.9 MG/DL (>40); LDL CHOLESTEROL 96.3 MG/DL (<100); NON-HDL-C 126.1 MG/DL; POTASSIUM SERUM 4.9 MMOL/L (3.5-5.1); SODIUM LEVEL 138 MMOL/L (136-145); TOTAL PROTEIN 6.9 G/DL (5.7-8.2); TRIGLYCERIDES LEVEL 149 MG/DL (<150); VITAMIN B12 LEVEL 1470 PG/ML (211-911)
== END ==
LOC: M SFHCCLAY 10:19
PROVIDERS: ATTEND Physician Assistant
DX: I10 Essential (primary) hypertension (principal); E55.9 Vitamin D deficiency, unspecified; E53.8 Deficiency of other specified B group vitamins

== ENCOUNTER → 2023-09-01 | Outpatient (REF) | payer OTHER, MEDICAID ==
[2023-09-01 21:17] LABS: APPEARANCE, URINE CLEAR (CLEAR); BACTERIA, URINE AUTO NEGATIVE (NEGATIVE); BILIRUBIN, URINE AUTO NEGATIVE (NEGATIVE); BLOOD, URINE BLOOD NEGATIVE (NEGATIVE); COLOR, URINE YELLOW (YELLOW); GLUCOSE, URINE (UA) AUTO NEGATIVE (NEGATIVE); KETONE, URINE AUTO NEGATIVE (NEGATIVE); LEUKOCYTE ESTERASE, URINE AUTO NEGATIVE (NEGATIVE); NITRITE, URINE AUTO NEGATIVE (NEGATIVE); PROTEIN, URINE AUTO NEGATIVE (NEGATIVE); RBC, URINE AUTO 0 /HPF (0-3); SPECIFIC GRAVITY URINE AUTO 1.008 (1.002-1.035); SQUAMOUS EPITHELIAL CELL UR AU 1 /HPF (0-6); UROBILINOGEN, URINE AUTO 0.2 mg/dL (0.0-2.0); WBC, URINE AUTO 0 /HPF (0-3)
== END ==
LOC: M SFHCLERA 16:41
PROVIDERS: ATTEND Physician Assistant
DX: R35.0 Frequency of micturition (principal); B96.4 Proteus (mirabilis) (morganii) as the cause of diseases classified elsewhere

== ENCOUNTER → 2023-09-28 | Outpatient (REF) | payer OTHER, MEDICAID ==
[2023-09-28 17:40] LABS: APPEARANCE, URINE HAZY (CLEAR); BACTERIA, URINE AUTO NEGATIVE (NEGATIVE); BILIRUBIN, URINE AUTO NEGATIVE (NEGATIVE); BLOOD, URINE BLOOD 2+ (NEGATIVE); COLOR, URINE YELLOW (YELLOW); GLUCOSE, URINE (UA) AUTO NEGATIVE (NEGATIVE); KETONE, URINE AUTO NEGATIVE (NEGATIVE); LEUKOCYTE ESTERASE, URINE AUTO 2+ (NEGATIVE); NITRITE, URINE AUTO NEGATIVE (NEGATIVE); PROTEIN, URINE AUTO 1+ mg/dL (NEGATIVE); RBC, URINE AUTO 3 /HPF (0-3); SPECIFIC GRAVITY URINE AUTO 1.013 (1.002-1.035); SQUAMOUS EPITHELIAL CELL UR AU 4 /HPF (0-6); UROBILINOGEN, URINE AUTO 0.2 mg/dL (0.0-2.0); WBC, URINE AUTO 88 /HPF (0-3)
== END ==
LOC: M SFHCCLAY 11:07
PROVIDERS: ATTEND Physician Assistant
DX: N39.0 Urinary tract infection, site not specified (principal)

== ENCOUNTER → 2023-09-28 | Outpatient (CLI) | payer MEDICARE | LOC: M CLY 11:20 | PROVIDERS: ATTEND Internal Medicine Rheumatology | DX: M19.041 Primary osteoarthritis, right hand (principal); M19.042 Primary osteoarthritis, left hand; M85.0 Fibrous dysplasia (monostotic); M19.071 Primary osteoarthritis, right ankle and foot; M19.072 Primary osteoarthritis, left ankle and foot; M20.11 Hallux valgus (acquired), right foot; M20.12 Hallux valgus (acquired), left foot; M05.79 Rheumatoid arthritis with rheumatoid factor of multiple sites without organ or systems involvement; M89.49 Other hypertrophic osteoarthropathy, multiple sites; H04.129 Dry eye syndrome of unspecified lacrimal gland; F17.210 Nicotine dependence, cigarettes, uncomplicated; N39.0 Urinary tract infection, site not specified; Z79.899 Other long term (current) drug therapy ==

== ENCOUNTER → 2023-10-24 | Outpatient (CLI) | payer MEDICARE, MEDICAID | LOC: M PAIN 15:30 | PROVIDERS: ATTEND Nurse Practitioner Family | DX: G89.29 Other chronic pain (principal); Z79.891 Long term (current) use of opiate analgesic; M06.9 Rheumatoid arthritis, unspecified; M16.11 Unilateral primary osteoarthritis, right hip; J44.9 Chronic obstructive pulmonary disease, unspecified; I10 Essential (primary) hypertension; F32.A Depression, unspecified; E78.5 Hyperlipidemia, unspecified; M54.31 Sciatica, right side; M79.7 Fibromyalgia; F17.210 Nicotine dependence, cigarettes, uncomplicated; Z79.82 Long term (current) use of aspirin; Z79.899 Other long term (current) drug therapy; Z88.0 Allergy status to penicillin; Z88.8 Allergy status to other drugs, medicaments and biological substances; Z91.030 Bee allergy status ==

== ENCOUNTER → 2024-02-13 | Outpatient (REF) | payer OTHER, MEDICAID | LOC: M SMT 16:30 | PROVIDERS: ATTEND Physician Assistant | DX: R30.0 Dysuria (principal) ==

== ENCOUNTER → 2024-03-01 | Outpatient (CLI) | payer MEDICARE, MEDICAID | LOC: M PAIN 15:30 | PROVIDERS: ATTEND Nurse Practitioner Family | DX: G89.29 Other chronic pain (principal); M25.511 Pain in right shoulder; M46.1 Sacroiliitis, not elsewhere classified; M06.9 Rheumatoid arthritis, unspecified; M19.90 Unspecified osteoarthritis, unspecified site; J44.9 Chronic obstructive pulmonary disease, unspecified; I10 Essential (primary) hypertension; F32.A Depression, unspecified; E78.5 Hyperlipidemia, unspecified; M54.31 Sciatica, right side; M79.7 Fibromyalgia; F17.210 Nicotine dependence, cigarettes, uncomplicated; Z79.82 Long term (current) use of aspirin; Z79.891 Long term (current) use of opiate analgesic; Z79.899 Other long term (current) drug therapy; Z88.0 Allergy status to penicillin; Z88.8 Allergy status to other drugs, medicaments and biological substances; Z91.030 Bee allergy status; Z88.1 Allergy status to other antibiotic agents ==

== ENCOUNTER → 2024-03-19 | Outpatient (REF) | payer MEDICARE, MEDICAID ==
[2024-03-19 11:24] LABS: APPEARANCE, URINE HAZY (CLEAR); BACTERIA, URINE AUTO NEGATIVE (NEGATIVE); BILIRUBIN, URINE AUTO NEGATIVE (NEGATIVE); BLOOD, URINE BLOOD 2+ (NEGATIVE); COLOR, URINE YELLOW (YELLOW); GLUCOSE, URINE (UA) AUTO NEGATIVE (NEGATIVE); KETONE, URINE AUTO NEGATIVE (NEGATIVE); LEUKOCYTE ESTERASE, URINE AUTO NEGATIVE (NEGATIVE); MUCUS, URINE SMALL (NEGATIVE); NITRITE, URINE AUTO NEGATIVE (NEGATIVE); PROTEIN, URINE AUTO NEGATIVE (NEGATIVE); RBC, URINE AUTO 2 /HPF (0-3); SPECIFIC GRAVITY URINE AUTO 1.016 (1.002-1.035); SQUAMOUS EPITHELIAL CELL UR AU 5 /HPF (0-6); UROBILINOGEN, URINE AUTO 0.2 mg/dL (0.0-2.0); WBC, URINE AUTO 1 /HPF (0-3)
== END ==
LOC: M SFHCCLAY 08:43
PROVIDERS: ATTEND Physician Assistant
DX: R30.0 Dysuria (principal)

== ENCOUNTER → 2024-03-28 | Outpatient (REF) | payer MEDICARE, MEDICAID | LOC: M SFHCCAPE 14:22 | PROVIDERS: ATTEND Physician Assistant Medical | DX: R10.2 Pelvic and perineal pain (principal) ==

== ENCOUNTER → 2024-04-04 | Outpatient (CLI) | payer MEDICARE, MEDICAID | LOC: M RAD 08:44 | PROVIDERS: ATTEND Physician Assistant Medical | DX: F17.210 Nicotine dependence, cigarettes, uncomplicated (principal); Z53.9 Procedure and treatment not carried out, unspecified reason ==

== ENCOUNTER → 2024-04-24 | Outpatient (REF) | payer MEDICARE, MEDICAID ==
[2024-04-24 17:48] LABS: BASO # 0.1 10^3/uL (0.0-0.2); BASO % 0.9 % (0.0-1.0); EOS # 0.4 10^3/uL (0.0-0.5); EOS % 2.9 % (0.0-3.0); HEMATOCRIT 39.1 % (36.0-47.0); LYMPH # 3.1 10^3/uL (1.5-5.0); LYMPH % 26.2 % (24.0-44.0); MEAN CORPUSCULAR HEMOGLOBIN 31.3 pg (27.0-33.0); MEAN CORPUSCULAR HGB CONC 33.2 g/dl (32.0-36.5); MONO # 0.7 10^3/uL (0.0-0.8); MONO % 5.8 % (2.0-8.0); NEUTROPHILS # 7.6 10^3/uL (1.5-8.5); NEUTROPHILS % 63.6 % (36.0-66.0); PLATELET COUNT, AUTOMATED 289 10^3/uL (150-450); RED BLOOD COUNT 4.16 10^6/uL (4.00-5.40); WHITE BLOOD COUNT 11.9 10^3/uL (4.0-10.0)
[2024-04-24 17:56] LABS: ALBUMIN 3.6 G/DL (3.2-5.2); ALKALINE PHOSPHATASE 91 U/L (46-116); ALT/SGPT 16 U/L (7.0-40); AST/SGOT < 8 U/L (<34); BILIRUBIN,TOTAL 0.2 MG/DL (0.3-1.2); BLOOD UREA NITROGEN 16 MG/DL (9-23); CALCIUM LEVEL 9.8 MG/DL (8.5-10.1); CARBON DIOXIDE LEVEL 26 MMOL/L (20-31); CHLORIDE LEVEL 110 MMOL/L (98-107); CREATININE FOR GFR 0.75 MG/DL (0.55-1.30); GLOMERULAR FILTRATION RATE > 60.0 (>51); GLUCOSE, FASTING 95 MG/DL (60-100); POTASSIUM SERUM 4.5 MMOL/L (3.5-5.1); SODIUM LEVEL 141 MMOL/L (136-145); TOTAL PROTEIN 6.8 G/DL (5.7-8.2)
[2024-04-24 17:58] LABS: ERYTHROCYTE SEDIMENTATION RATE 24 mm/hr (0-30)
== END ==
LOC: M SFHCCLAY 10:40
PROVIDERS: ATTEND Internal Medicine Rheumatology
DX: M05.79 Rheumatoid arthritis with rheumatoid factor of multiple sites without organ or systems involvement (principal); Z79.899 Other long term (current) drug therapy; F17.210 Nicotine dependence, cigarettes, uncomplicated; M89.49 Other hypertrophic osteoarthropathy, multiple sites; H04.129 Dry eye syndrome of unspecified lacrimal gland

== ENCOUNTER → 2024-06-27 | Outpatient (CLI) | payer MEDICARE, MEDICAID | LOC: M PAIN 17:30 | PROVIDERS: ATTEND Nurse Practitioner Family | DX: M25.511 Pain in right shoulder (principal); G89.29 Other chronic pain; M46.1 Sacroiliitis, not elsewhere classified; F17.210 Nicotine dependence, cigarettes, uncomplicated; Z79.51 Long term (current) use of inhaled steroids; Z79.82 Long term (current) use of aspirin; Z79.891 Long term (current) use of opiate analgesic; Z79.899 Other long term (current) drug therapy; Z80.1 Family history of malignant neoplasm of trachea, bronchus and lung; Z80.51 Family history of malignant neoplasm of kidney; Z80.8 Family history of malignant neoplasm of other organs or systems; Z88.0 Allergy status to penicillin; Z88.1 Allergy status to other antibiotic agents; Z88.8 Allergy status to other drugs, medicaments and biological substances; Z91.030 Bee allergy status ==

== ENCOUNTER → 2024-08-27 | Outpatient (CLI) | payer MEDICARE, MEDICAID | LOC: M PAIN 14:00 | PROVIDERS: ATTEND Nurse Practitioner Family | DX: M79.10 Myalgia, unspecified site (principal); G89.29 Other chronic pain; F17.210 Nicotine dependence, cigarettes, uncomplicated; Z79.82 Long term (current) use of aspirin; Z79.891 Long term (current) use of opiate analgesic; Z79.899 Other long term (current) drug therapy; Z88.0 Allergy status to penicillin; Z88.1 Allergy status to other antibiotic agents; Z88.8 Allergy status to other drugs, medicaments and biological substances; Z91.030 Bee allergy status ==